=== PATIENT | female | born 1955 | race Caucasian/White ===

== ENCOUNTER 2019-10-25 13:00 | Inpatient (IN) | payer MEDICARE, MEDICAID, OTHER ==
[~2019-10-25 13:00] MED LIST: Iopamidol-370 76% 500 ML 1 ML ONE
--- NOTE | 2019-10-25 13:58 | RAD ---
PORTABLE CHEST 1 VIEW: DATE: 10/25/2019. TIME: 1:13 PM. HISTORY: Dyspnea. FINDINGS/IMPRESSION: Comparison is made with the exam of 07/22/2016. The heart is enlarged. There are bilateral pleural effusions with adjacent infiltrate/atelectatic ch anges. No pneumothoraces are seen. POS: CAMILLEA
[2019-10-25 14:25] LABS: #Lymphocytes 0.9 thou/uL (1.20-3.40); #Monocytes 0.7 thou/uL (0.11-0.59); #Neutrophils 8.2 thou/uL (1.40-6.50); %Basophils 0.2 % (0.0-1.0); %Eosinophils 0.4 % (0.0-10.0); %Lymphocytes 9.2 % (21.0-51.0); %Monocytes 6.7 % (0.0-10.0); %Neutrophils 83.5 % (42.0-75.0); Hemoglobin 13.5 g/dL (12.0-16.0); Mean Corpuscular Hemoglobin 27.8 pg (27.0-31.0); Mean Corpuscular Volume 86.9 fL (78.0-98.0); Mean Platelet Volume 8.1 fL (7.4-10.4); Platelet Count 395 thou/uL (130-400); Red Blood Cell (RBC) Count 4.87 mill/uL (4.20-5.40); White Blood Cell (WBC) Count 9.8 thou/uL (4.8-10.8)
[2019-10-25] MEDS ORDERED: cefTRIAXone\\ROCEPHIN 2 GM VIAL ONE ×2 (14:43→14:49)
[2019-10-25 14:54] LABS: ALT (SGPT) 18 U/L (8-55); AST (SGOT) 21 U/L (5-34); Albumin 3.5 g/dL (3.4-4.8); Alkaline Phosphatase 78 U/L (40-110); Anion Gap 15 mmol/L (10-20); BUN (Urea Nitrogen) 10 mg/dL (9.8-20.1); Bilirubin, Total 0.9 mg/dL (0.2-1.2); Calc. Creatinine Clearance 0 mL/min (70-130); Calcium 8.6 mg/dL (7.8-10.44); Carbon Dioxide 20 mmol/L (23-31); Chloride 104 mmol/L (98-107); Estimated GFR-MDRD 73; Globulin 3.3 g/dL (2.4-3.5); Glucose 118 mg/dL (80-115); Lipase 36 U/L (8-78); Potassium 3.8 mmol/L (3.5-5.1); Protein, Total 6.8 g/dL (6.0-8.3); Sodium 135 mmol/L (136-145)
[2019-10-25 15:13] LABS: CKMB 0.8 ng/mL (0-6.6)
[2019-10-25] MEDS ORDERED: Aspirin 325 MG TAB ONE (16:09)
[2019-10-25] MEDS ORDERED: diphenhydrAMINE 50 MG/ML VIAL ONE (16:09)
[2019-10-25] MEDS ORDERED: Famotidine/PF 20 mg/2ml Vial ONE (16:09)
[2019-10-25] MEDS ORDERED: methylPREDNISolone Sod Succ/PF 125 MG/2 ML VIAL ONE (16:09)
--- NOTE | 2019-10-25 17:12 | PDOC.FPRHP ---
- Allergies/Adverse Reactions Allergies Allergy/AdvReac Type Severity Reaction Status Date / Time Iodinated Contrast Media Allergy Mild Itching Unverified 10/25/19 15:03 ibuprofen [From Advil] Allergy Verified 07/22/16 16:25 - Home Medications Medication Instructions Recorded Confirmed Type Omeprazole Magnesium [Prilosec] 20 mg PO DAILY 07/22/16 07/22/16 History Pramipexole Di-HCl [Mirapex] 0.5 mg PO HS 07/22/16 07/22/16 History predniSONE [predniSONE 5 mg 5 mg PO TID 07/22/16 07/22/16 History Dosepak] Aspirin Chewable [Aspirin Chewable 81 mg PO DAILY #30 tab 07/27/16 Rx Tablet] Azithromycin [Zithromax] 250 mg PO DAILY #5 tab 07/27/16 Rx Metoprolol Tartrate [Lopressor] 12.5 mg PO BID #60 tab 07/27/16 Rx Rivaroxaban [Xarelto] 15 mg PO BID #30 tab 07/27/16 Rx - History PMHx: PSHx: FHx: Social: - Vital signs BP: [] HR: [] RR: [] Tmax: [] Pox: []% on [] Wt: [] FMR H&P: Results - Labs Result Diagrams: 10/25/19 14:09 10/25/19 14:10 Lab results: WBC 9.8 thou/uL (4.8-10.8) 10/25/19 14:09 Hgb 13.5 g/dL (12.0-16.0) 10/25/19 14:09 Hct 42.3 % (36.0-47.0) 10/25/19 14:09 MCV 86.9 fL (78.0-98.0) 10/25/19 14:09 Plt Count 395 thou/uL (130-400) 10/25/19 14:09 Neutrophils % 83.5 % (42.0-75.0) H 10/25/19 14:09 Sodium 135 mmol/L (136-145) L 10/25/19 14:10 Potassium 3.8 mmol/L (3.5-5.1) 10/25/19 14:10 Chloride 104 mmol/L (98-107) 10/25/19 14:10 Carbon Dioxide 20 mmol/L (23-31) L 10/25/19 14:10 BUN 10 mg/dL (9.8-20.1) 10/25/19 14:10 Creatinine 0.80 mg/dL (0.6-1.1) 10/25/19 14:10 Glucose 118 mg/dL (80-115) H 10/25/19 14:10 Lactic Acid 1.4 mmol/L (0.5-2.2) 10/25/19 14:09 Calcium 8.6 mg/dL (7.8-10.44) 10/25/19 14:10 Total Bilirubin 0.9 mg/dL (0.2-1.2) 10/25/19 14:10 AST 21 U/L (5-34) 10/25/19 14:10 ALT 18 U/L (8-55) 10/25/19 14:10 Alkaline Phosphatase 78 U/L (40-110) 10/25/19 14:10 CK-MB (CK-2) 0.8 ng/mL (0-6.6) 10/25/19 14:09 B-Natriuretic Peptide 108.4 pg/mL (0-100) H 10/25/19 14:09 Serum Total Protein 6.8 g/dL (6.0-8.3) 10/25/19 14:10 Albumin 3.5 g/dL (3.4-4.8) 10/25/19 14:10 Lipase 36 U/L (8-78) 10/25/19 14:10 FMR H&P: Upper Level - Plan Date/Time: 10/25/19 1711 I, [], have evaluated this patient and agree with findings/plan as outlined by spring intern resident. Pertinent changes/additions are listed here.
--- NOTE | 2019-10-25 17:53 | CT ---
CT ANGIOGRAM OF THE CHEST: HISTORY: Abnormal chest radiograph. Difficulty breathing. COMPARISON: 07/22/2016 TECHNIQUE: CT angiogram of the chest is performed in the axial plane. Three-dimensional reformatted i mages are submitted for interpretation FINDINGS: Mediastinum: No mass, lymphadenopathy or hematoma. HEART: Heart is enlarged. Significant pericardial fluid. Aorta: No aneurysm or dissection Upper solid abdominal viscera: No abnormal enhancement. 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 Trachea and central bronchi: Patent Pleural spaces: Small left and moderate right pleural effusion. Lung parenchyma: Right lung: Consolidation in the lower lobe, middle lobe and right upper lobe may represent atelectas is, pneumonia or aspiration. Left lung: Linear densities in the lingula and left lower lobe likely represent areas of scar or atel ectasis. Pneumothorax: None Osseous structures: No lytic or blastic lesions Pulmonary arteries: Adequate contrast opacification pulmonary arterial system to the level of segment al arteries. No filling defect to suggest pulmonary embolism IMPRESSION: 1. No evidence of pulmonary artery embolism to the level of the segmental arteries. 2. Cardiomegaly. Markedly pericardial fluid. 3. Bilateral pleural effusions. Right lung consolidation with air bronchograms may represent atelecta sis, aspiration or pneumonia. Transcribed Date/Time: 10/25/2019 6:45 PM
[2019-10-25] MEDS ORDERED: Albuterol Sulfate 2.5 mg/3 ml Neb NEB PRN (19:32)
--- NOTE | 2019-10-25 19:50 | PDOC.FPRHP ---
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 Patient reports she was treated for a sinus infection with amoxicillin 2 weeks ago, and went back to her doctor 4 days ago for worsened SOB and was diagnosed with bronchitis. She was started on albuterol and azithromycin. Her SOB is worsened with exertion, somewhat improved with albuterol. She denies chest pain, palpitations; she reports occasional wheezing. She reports she has had "asthma and bronchitis" in the past, and was started on furosemide 1 month ago for mild CHF (just diagnosed 1 month ago). She states she has not had an echo, but was told that her heart was enlarged. She denies fever/chills, reports productive cough, congestion, rhinorrhea. In the ED, BNP was 108, Trop indeterminate. CBC wnl. LA 1.4. EKG sinus with nonspecific ST changes. CXR showed enlarged heart, pneumonia vs atelectasis vs aspiration. CTA ruled out PE, but showed marked pericardial fluid. She was given famotidine, ASA 325, levaquin, ceftriaxone, and 1L NS. - Allergies/Adverse Reactions Allergies Allergy/AdvReac Type Severity Reaction Status Date / Time Iodinated Contrast Media Allergy Mild Itching Verified 10/25/19 21:01 ibuprofen [From Advil] Allergy Swelling/ Verified 10/25/19 21:01 Hard Time Breathing - Home Medications Medication Instructions Recorded Confirmed Type Omeprazole Magnesium [Prilosec] 20 mg PO DAILY 07/22/16 07/22/16 History Aspirin Chewable [Aspirin Chewable 81 mg PO DAILY #30 tab 07/27/16 Rx Tablet] Azithromycin [Zithromax] 250 mg PO DAILY #5 tab 07/27/16 Rx Albuterol Sulfate [Albuterol 90 mcg PO PRN PRN 10/25/19 10/25/19 History Sulfate Hfa] Amlodipine [Norvasc] 5 mg PO DAILY 10/25/19 10/25/19 History Atorvastatin Calcium [Lipitor] 40 mg PO DAILY 10/25/19 10/25/19 History Folic Acid 1 mg PO DAILY 10/25/19 10/25/19 History Furosemide 20 mg PO DAILY 10/25/19 10/25/19 History Metoprolol Tartrate [Lopressor] 25 mg PO BID 10/25/19 10/25/19 History Montelukast Sodium 10 mg PO DAILY 10/25/19 10/25/19 History Potassium Chloride 20 meq PO DAILY 10/25/19 10/25/19 History Rivaroxaban [Xarelto] 20 mg PO BID 10/25/19 10/25/19 History Suvorexant [Belsomra] 5 mg PO PRN PRN 10/25/19 10/25/19 History - History PMHx: HTN, HLD, DVTs (L leg) on chronic anticoagulation, possible asthma per patient, rheumatoid arthritis (not on DMARD), seasonal allergies, 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 - Review of Systems General: denies: fever/chills Eyes: denies: eye pain, vision changes ENT: reports: nasal congestion, rhinorrhea. denies: other (denies ear pain or hearing 3 changes) Respiratory: reports: cough, congestion, shortness of breath, exercise intolerance Cardiovascular: reports: edema. denies: chest pain, palpitation, paroxysmal nocturnal dyspnea Gastrointestinal: denies: nausea, vomiting, diarrhea, constipation, abdominal pain, GI bleeding Genitourinary: denies: dysuria, other (hematuria) Skin: denies: rashes, lesions Musculoskeletal: reports: arthritis/arthralgias. denies: pain Neurological: denies: numbness, weakness - Vital signs BP: 106/63, 113/73 HR: 83 RR: 18 Tmax: 99.3 F Pox: 96% on RA Wt: 71 kg. - Physical Exam Constitutional: NAD, awake, alert and oriented, other HEENT: normocephalic and atraumatic, conjunctiva clear, no scleral icterus, grossly normal hearing (Eyes: keyhole shaped pupils bilat; pupils are not aligned, decreased vision right eye), MMM, oropharynx clear, other Neck: supple, trachea midline Heart: RRR, normal S1/S2, no murmurs/rubs/gallops, pulses present, other (trace edema BLE, no JVD, heart sounds are not diminished) Lungs: CTAB, good air movement, no rales/rhonchi, no wheezing, other (increased respirations, retractions at clavicles) Abdomen: soft, non-tender, bowel sounds present, no masses/distention Musculoskeletal: normal structure, normal tone, ROM grossly normal Neurological: no focal deficit, other (strength 5/5 upper and lower extremities) Skin: no rash/lesions, good turgor, capillary refill <2 seconds Heme/Lymphatic: no unusual bruising or bleeding, no purpura Psychiatric: normal mood and affect, good judgment and insight, intact recent and remote memory FMR H&P: Results - Labs Result Diagrams: 10/25/19 14:09 10/25/19 14:10 Lab results: WBC 9.8 thou/uL (4.8-10.8) 10/25/19 14:09 Hgb 13.5 g/dL (12.0-16.0) 10/25/19 14:09 Hct 42.3 % (36.0-47.0) 10/25/19 14:09 MCV 86.9 fL (78.0-98.0) 10/25/19 14:09 Plt Count 395 thou/uL (130-400) 10/25/19 14:09 Neutrophils % 83.5 % (42.0-75.0) H 10/25/19 14:09 Sodium 135 mmol/L (136-145) L 10/25/19 14:10 Potassium 3.8 mmol/L (3.5-5.1) 10/25/19 14:10 Chloride 104 mmol/L (98-107) 10/25/19 14:10 Carbon Dioxide 20 mmol/L (23-31) L 10/25/19 14:10 BUN 10 mg/dL (9.8-20.1) 10/25/19 14:10 Creatinine 0.80 mg/dL (0.6-1.1) 10/25/19 14:10 Glucose 118 mg/dL (80-115) H 10/25/19 14:10 Lactic Acid 1.4 mmol/L (0.5-2.2) 10/25/19 14:09 Calcium 8.6 mg/dL (7.8-10.44) 10/25/19 14:10 Total Bilirubin 0.9 mg/dL (0.2-1.2) 10/25/19 14:10 AST 21 U/L (5-34) 10/25/19 14:10 ALT 18 U/L (8-55) 10/25/19 14:10 Alkaline Phosphatase 78 U/L (40-110) 10/25/19 14:10 CK-MB (CK-2) 0.8 ng/mL (0-6.6) 10/25/19 14:09 B-Natriuretic Peptide 108.4 pg/mL (0-100) H 10/25/19 14:09 Serum Total Protein 6.8 g/dL (6.0-8.3) 10/25/19 14:10 Albumin 3.5 g/dL (3.4-4.8) 10/25/19 14:10 Lipase 36 U/L (8-78) 10/25/19 14:10 - EKG Interpretation EKG: Sinus rhythm, nonspecific ST changes - Radiology Interpretation Chest x-ray Status: image reviewed by me, report reviewed by me (enlarged bilateral pleural effusions, adjacent infiltrate/atelectic changes) CT scan - chest Status: image reviewed by me, report reviewed by me (No PE; cardiomegaly, marked pericardial fluid; bilat pleural effusions. Rt lung consolidations wiht air bronchograms may represent atelectasis, aspiration, pneumonia) FMR H&P: A/P - Problem List (1) Pericardial effusion Current Visit: Yes Status: Acute Code(s): I31.3 - PERICARDIAL EFFUSION ( NONINFLAMMATORY) (2) HTN (hypertension) Current Visit: Yes Status: Acute Code(s): I10 - ESSENTIAL (PRIMARY) HYPERTENSION (3) HLD (hyperlipidemia) Current Visit: Yes Status: Acute Code(s): E78.5 - HYPERLIPIDEMIA, UNSPECIFIED (4) Hx of deep venous thrombosis Current Visit: Yes Status: Acute Code(s): Z86.718 - PERSONAL HISTORY OF OTHER VENOUS THROMBOSIS AND EMBOLISM (5) Rheumatoid arthritis Current Visit: No Status: Chronic Code(s): M06.9 - RHEUMATOID ARTHRITIS, UNSPECIFIED Qualifiers: Rheumatoid arthritis location: hand Rheumatoid factor presence: unspecified presence Laterality: bilateral Qualified Code(s): M06.9 - Rheumatoid arthritis, unspecified (6) CHF (congestive heart failure) Current Visit: Yes Status: Acute Code(s): I50.9 - HEART FAILURE, UNSPECIFIED (7) Dyspnea Current Visit: Yes Status: Acute Code(s): R06.00 - DYSPNEA, UNSPECIFIED (8) Elevated troponin Current Visit: Yes Status: Acute Code(s): R79.89 - OTHER SPECIFIED ABNORMAL FINDINGS OF BLOOD CHEMISTRY - Plan Marked Pericardial Effusion -Likely the cause of her SOB. Seen on CTA -EKG normal, trop indeterminate -S/p ASA, no chest pain -No signs of cardiac tamponade, pressures stable systolic 100s-120s, no JVD, heart sounds not diminished on exam -Continue to monitor vitals closely -Echo ordered, plan to consult cardiology tomorrow morning -NPO at midnight Elevated troponin, ACS R/o -Indeterminate, 0.061; will continue to trend -likely 2/2 to pericardial effusion -risk factors: HTN, HLD, rheumatoid arthritis -HEART score 3 Dyspnea -likely 2/2 to pericardial effusion. CTA ruled out PE -tested for covid outpatient, negative results -vitals otherwise stable, lungs clear on exam -will give PRN albuterol, as patient stated it helped over the weekend -PRN O2 BNC, sats have been low 90s HTN -continue home medication, will hold if she develops hypotension HLD -continue home statin Concern for pneumonia -s/p levaquin and rocephin, was on outpatient azithromycin -Afebrile, normal white count, lungs clear on exam -Plan to DC antibiotics Rheumatoid arthritis - Not on disease modifying therapy - Patient has follow up for this at the end of the month outpatient CHF, unknown type -Patient states recently diagnosed 1 month ago, she has not had ECHO yet -She was started on furosemide and potassium 1 month ago -Previously on metoprolol, statin, ASA -BNP mildly elevated on presentation, not fluid overloaded on physical exam. -Echo pending -Strict I/Os Hx of DVTs -CTA ruled out PE -continue xarelto Diet: HH DVT ppx: continue home xarelto, SCDs GI ppx: famotidine PCP: in [place] Code status: Full code Addendum - Attending - Attending Attestation Date/Time: 10/25/19 1364 I personally evaluated the patient and discussed the management with Dr. Houser. I agree with the History, Examination, Assessment and Plan documented above with any addition or exceptions noted below. 2-3 wk history of URI sx and SOB that has been refractory to multiple abx courses. Exam remarkable for muffled heart sounds. Labs show mild elevation in BNP and trop. CXR shows cardiomegly. CT scan shows marked pericardial effusion. EKG unremarkable. Observation for mild HF (EF unknown) exacerbation with pericardial effusion. TTE ordered. Will consider cardiology consult pending results of TTE.
[2019-10-25 20:13] LABS: Troponin I 0.045 ng/mL (< 0.028)
[2019-10-25] MEDS: Famotidine 20 MG TAB PO SCH (21:02)
[2019-10-25] MEDS ORDERED: Rivaroxaban 10 MG TAB PO SCH (23:00)
[2019-10-25] MEDS ORDERED: SUVOREXANT 5 MG PO SCH (23:45)
[2019-10-25] MEDS ORDERED: Melatonin 3 MG TAB PO PRN (23:53)
[2019-10-25 23:54] LABS: Troponin I 0.039 ng/mL (< 0.028)
[2019-10-26 05:52] LABS: Anion Gap 16 mmol/L (10-20); BUN (Urea Nitrogen) 10 mg/dL (9.8-20.1); Calc. Creatinine Clearance 88 mL/min (70-130); Calcium 8.1 mg/dL (7.8-10.44); Carbon Dioxide 17 mmol/L (23-31); Chloride 109 mmol/L (98-107); Estimated GFR-MDRD 80; Glucose 139 mg/dL (80-115); Potassium 3.3 mmol/L (3.5-5.1); Sodium 139 mmol/L (136-145)
--- NOTE | 2019-10-26 05:55 | PDOC.FM ---
- Subjective Subjective: Patient was resting comfortably in her bed at the time of evaluation. She denied any acute overnight events, but continued to complain of shortness of breath. She denied any additional symptoms such as fevers, chills, chest pain, ABD pain or N/V/D. - Objective Vital Signs & Weight: Vital Signs (12 hours) Temp Pulse Resp BP Pulse Ox 10/26/19 03:41 97.6 F 75 17 130/76 98 10/25/19 23:33 97.7 F 74 13 120/71 96 10/25/19 20:07 98.4 F 77 14 100/62 96 10/25/19 19:30 96 10/25/19 17:55 98.4 F 83 22 H 106/63 93 L Weight Weight 71.713 kg Result Diagrams: 10/25/19 14:09 10/26/19 05:18 Phys Exam - Physical Examination Constitutional: NAD HEENT: PERRLA, moist MMs, sclera anicteric, oral pharynx no lesions Neck: no nodes, no JVD, supple, full ROM Respiratory: no wheezing, no rales, no rhonchi, clear to auscultation bilateral Cardiovascular: RRR, no significant murmur, no rub Gastrointestinal: soft, non-tender, no distention, positive bowel sounds Musculoskeletal: no edema, pulses present Neurological: non-focal, moves all 4 limbs Lymphatic: no nodes Psychiatric: normal affect Skin: no rash Dx/Plan (1) CHF (congestive heart failure) Code(s): I50.9 - HEART FAILURE, UNSPECIFIED Status: Acute (2) HLD (hyperlipidemia) Code(s): E78.5 - HYPERLIPIDEMIA, UNSPECIFIED Status: Acute (3) HTN (hypertension) Code(s): I10 - ESSENTIAL (PRIMARY) HYPERTENSION Status: Acute (4) Pericardial effusion Code(s): I31.3 - PERICARDIAL EFFUSION (NONINFLAMMATORY) Status: Acute - Plan Plan: Patient is a 64 y/o female who presented to the ED for evaluation of SOB. 1. Pericardial Effusion -Verified on CTA - likely underlying cause of CC -EKG: No ST-Segment Elevation -Trops: Indeterminate range (0.061 >> 0.039) -Received ASA, Ceftriaxone and Levofloxacin in ED -No chest pain or evidence of cardiac tamponade, w/ SBP stable in the 100s-120s and no JVD or diminished heart sounds -Continue to monitor vitals closely -TSHE: Pending -TTE: Pending -Cardiology: Consulted, recs appreciated -NPO at midnight 2. Elevated troponin, ACS R/o -Risk Factors: HTN, HLD, Rheumatoid Arthritis -HEART Score: 3 -See #1 3. Dyspnea -No evidence of PE on CTA - likely 2/2 to #1 -COVID-19 Testing performed on 10/21 - reported as negative -VSS w/ CTAB -PRN Albuterol, supplemental O2 4. HTN -Continue home medication regimen 5. HLD -Continue home medication regimen 6. Pneumonia, ruled out -s/p Levofloxacin and Ceftriaxone in ED, previously on Azithromycin prior to presenting to ED -VSS w/o elevated WBCs -Plan to DC antibiotics 7. Rheumatoid Arthritis -Not currently on DMARD disease modifying therapy -Patient has follow-up for this at the end of the month outpatient 8. CHF, unknown type -Diagnosed in September 2019 - no reported ECHO - started on Furosemide, Potassium at that time -Previously on Metoprolol, Statin, ASA - will continue -BNP mildly elevated on presentation, no evidence of fluid overload on physical exam -TTE: Pending -Strict I/Os Hx of DVTs -CTA ruled out PE -Will continue home Xarelto regimen PCP: VIOLETTE ([place], [place]) Code status: Full code Diet: NPO at 0001 DVT PPx: Home Xarelto, SCDs GI PPx: Famotidine Dispo: Patient is currently stable and admitted to the Stroke Floor for further evaluation of Pericardial Effusion. Will await results of TTE and consult Cardiology as per above. Expected LOS < 48H. Addendum - Attending - Attending Attestation Date/Time: 10/26/19 4488 I personally evaluated the patient and discussed the management with Dr. Boudreaux I agree with the History, Examination, Assessment and Plan documented above with any addition or exceptions noted below. 64 yo F admitted for evaluation of pericardial effusion and pleural effusion. She does have a history of RA. Will give patient a dose of IV lasix, monitor I/ Os closely. Source of effusion is unknown at this time autoimmune vs cardiac vs viral are in differential. Cardiology consulted, appreciates recs. RA Escobar
[2019-10-26] MEDS: Albuterol Sulfate 2.5 mg/3 ml Neb NEB PRN ×2 (08:16→21:21)
[2019-10-26] MEDS: Amlodipine 5 MG TAB PO SCH (08:52)
[2019-10-26] MEDS: Montelukast Sodium 10 mg Tablet PO SCH (08:52)
[2019-10-26] MEDS: Famotidine 20 MG TAB PO SCH ×2 (08:53→20:46)
[2019-10-26] MEDS: Folic Acid 1 MG TAB PO SCH (08:53)
[2019-10-26] MEDS: Metoprolol Tartrate 25 MG TAB PO SCH ×2 (08:53→20:46)
[2019-10-26] MEDS: Atorvastatin Calcium 40 MG TAB PO SCH (08:53)
[2019-10-26] MEDS: Aspirin Chewable 81 MG TAB PO SCH (08:53)
[2019-10-26] MEDS ORDERED: Rivaroxaban 15 MG TAB PO SCH (09:00)
[2019-10-26] MEDS ORDERED: Potassium Chloride 20 MEQ TAB PO SCH (09:00)
[2019-10-26] MEDS ORDERED: Furosemide 20 MG TAB PO SCH (09:00)
[2019-10-26] MEDS ORDERED: Furosemide 40 MG/4 ML VIAL SLOW IVP SCH (14:15)
[2019-10-26] MEDS: Rivaroxaban 10 MG TAB PO SCH (17:29)
--- NOTE | 2019-10-26 21:56 | CON ---
DATE OF CONSULTATION: 10/26/2019 INDICATION FOR CONSULTATION: This is a 64-year-old female who was admitted due to increasing shortness of breath and dyspnea on exertion. She was found to have a pericardial effusion as well as bilateral pleural effusions. We were asked to see her due to the pericardial effusion. HISTORY OF PRESENT ILLNESS: This is a very pleasant 64-year-old female who has had no previous cardiac history, but has had history of pulmonary emboli in the past. She said that she has been having shortness of breath for the last couple of weeks and became worse over the last couple of days. She did have a recent episode of bronchitis and started to have sinus infection then became bronchitis and she became more short of breath. She was given antibiotics. She denied any chest pain. She has no history of coronary artery disease, and she presented to the hospital since she has continued to have shortness of breath. In the emergency room, her O2 saturation was 94% on room air. Subsequent echocardiogram had showed a [id number] pericardial effusion but no evidence of tamponade. She also has bilateral pleural effusions. The right was greater than the left and on CT of the chest, she also had these effusions were still noted. She does have some cardiomegaly. Ejection fraction appears to be normal on the echocardiogram and there was no evidence of significant diastolic dysfunction. She may have mild diastolic dysfunction and I would quantify this pericardial effusion as mild, appears to be some loculation of fluid around the right atrial side but this may also be some pleural component. In some of the views, it appears that the pericardium does not have any significant effusion, but certainly there is no evidence of tamponade. At this time, she denies any significant symptoms. She is not short of breath. She is answering all my questions appropriately. PAST MEDICAL HISTORY: Significant for right detached retina x3. She has a left eye stigmatism. She had asthma many years ago but has had none recently. She has had right and left knee replacements 4 or 5 years ago. 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 She has been on Xarelto and aspirin since that time. MEDICATIONS: Prior to admission included 1. Lasix 40 mg a day, which she recently was started on. 2. Atorvastatin 10 mg a day. 3. Metoprolol Succinate is 100 mg once a day. 4. She has been on albuterol inhalers. 5. Xarelto was 10 mg a day. 6. Amlodipine 10 mg a day. 7. She also gets folic acid injections. 8. She is on potassium 8 mEq a day. 9. She has also been taking montelukast granules. 10. She is on Vascepa 0.5 g a day. REVIEW OF SYSTEMS: She mainly complains of some decreased vision problems and had the right detached retina. She has history of asthma but none recently. She denies any GI or complaints. No lower extremity edema. Neurologically, no complaints. Mainly, she complained of shortness of breath. FAMILY HISTORY: Unremarkable for any early heart disease. SOCIAL HISTORY: She has two children who are alive and well without heart disease. She says she smoked on and off a little bit for about over nine years, but stopped many years ago. She has no significant alcohol use but has occasional alcohol use. She is on disability due to her eye problems. ALLERGIES: SHE IS ALLERGIC TO ADVIL AND IODINE. PHYSICAL EXAMINATION: GENERAL: Reveals a well-developed, well-nourished female, who is in no acute distress at this time. She is alert. She is oriented. VITAL SIGNS: Her blood pressure is 119/74, heart rate is 72 and regular, respiratory rate is 18. She is afebrile. O2 saturations are 98% on room air. HEENT: Shows the head to be normocephalic and atraumatic. Carotid pulses are present, I did not hear any bruits. There is no JVD noted. CHEST: Has some decreased breath sounds at the bases, otherwise unremarkable. CARDIOVASCULAR: Reveals a regular rate and rhythm. She has normal S1 and S2. I did not hear any significant S3 or S4. There are no significant murmurs, heaves, thrills, bruits, or rubs noted. ABDOMEN: Soft and nontender. Positive bowel sounds are present. No organomegaly or masses are noted. VASCULAR: Femoral pulses are present. Pedal pulses are present. EXTREMITIES: Show no clubbing, cyanosis, or edema. NEUROLOGICAL: She appears to be fully intact. There is no evidence of any focal motor deficit. She has normal strength and tone. SKIN: Warm and dry. LABORATORY DATA: Show a WBC of 9.8, hemoglobin 13.5, platelet count was 395,000. Sodium is 139 with potassium 3.3, BUN was 10 with a creatinine of 0.74, blood sugar 139. Her troponin I was 0.061, then decreased down to 0.045, is now down to 0.039, the last one. Her BNP also was 108. DIAGNOSTIC STUDIES: Chest x-ray shows bilateral pleural effusions, right being more than the left. She also has some cardiomegaly and she by echocardiogram has small pericardial effusion without tamponade. CT angiogram of the chest shows evidence of bilateral pleural effusions and also a pericardial effusion. There is also something on the CT of the chest that appears to be some calcification which also was noted on the echocardiogram. I am uncertain as to what this was, but this may be some type of calcifications. There was no significant mention of this on the CT report. IMPRESSION: 1. Small pericardial effusion without evidence of tamponade. I will continue to monitor this. She has been placed on diuretics. We will continue the diuretics. We will change to IV diuretics since there is no evidence of tamponade, but certainly would watch the blood pressure, it should begin to decrease. We would certainly not want to over diurese this patient with any type of pericardial effusion, but this may resolve after being given diuretics and may be result of recent upper respiratory tract infection, also bronchitis. 2. History of bilateral pleural effusions, which may also be due to her recent lung infections. We will see whether or not this will resolve with diuretics. 3. History of pulmonary embolisms in the past with deep venous thrombosis. She has been on anticoagulation. I would continue these medications for now to ensure that she does not have any significant other deep venous thrombosis or pulmonary embolus while in the hospital or to switch over to Lovenox if necessary or if so desired rather than the Xarelto, but at this time she is I believe taking Xarelto 20 mg once a day. 4. History of recent bronchitis. She may need further antibiotics. We will leave this up to the care of the primary care physicians. I do not think she completely finished her prescription that she was given previously by the primary care provider. 5. Hypertension. Blood pressure is under good control at this time. We will continue to monitor it. If she becomes more hypotensive, we would decrease the dose of her amlodipine. She is already taking 5 mg, we could decrease this further down to 2.5 if necessary or stop it completely if the blood pressure remains less than 120. We would be more than happy to continue to follow the patient with you. Further care of the patient will be resumed by Dr. Tolbert when he visits with the patient tomorrow. If the effusions do not resolve, then further evaluation may be indicated but the pericardial effusion is too small to undergo aspiration and also the bilateral pleural effusions are rather small and would be unlikely that they would undergo a thoracentesis. Hopefully, this will resolve with diuretics and possibly even antibiotics. Also please note, her EKG does not show any acute changes and cardiac enzymes are felt to be negative for myocardial infarction. They are somewhat indeterminate, but with her history of shortness of breath and the recent infection, this may be slightly abnormal which could indicate possibly a small [id number] elevation myocardial infarction, but that has continued to trend downward at this time and also does not appear that she has any indication of congestive heart failure since her BNP is 108, and her ejection fraction on the echocardiogram was within normal limits, and there was no significant indication that the patient had diastolic dysfunction. There was mild diastolic dysfunction noted on the echocardiogram, but would not likely be significant enough to cause a pericardial effusion or bilateral pleural effusions. Job ID: [id number]
[2019-10-27 04:38] LABS: Anion Gap 14 mmol/L (10-20); BUN (Urea Nitrogen) 15 mg/dL (9.8-20.1); Calc. Creatinine Clearance 91 mL/min (70-130); Calcium 7.9 mg/dL (7.8-10.44); Carbon Dioxide 21 mmol/L (23-31); Chloride 108 mmol/L (98-107); Estimated GFR-MDRD 82; Glucose 100 mg/dL (80-115); Potassium 3.4 mmol/L (3.5-5.1); Sodium 140 mmol/L (136-145)
--- NOTE | 2019-10-27 06:16 | PDOC.FM ---
- Subjective Subjective: Patient was resting comfortably in her bed at the time of evaluation and denied any acute overnight events. She felt that her breathing has greatly improved since her admission. - Objective Vital Signs & Weight: Vital Signs (12 hours) Temp Pulse Resp BP Pulse Ox 10/27/19 03:28 99.5 F 86 20 125/59 L 92 L 10/26/19 21:21 83 20 97 10/26/19 19:34 97.4 F L 83 14 124/64 96 Weight Weight 70.942 kg I&O: 10/25/19 10/26/19 10/27/19 06:59 06:59 06:59 Intake Total 240 1222 Output Total 500 Balance 240 722 Result Diagrams: 10/25/19 14:09 10/27/19 03:53 Phys Exam - Physical Examination Constitutional: NAD HEENT: moist MMs, sclera anicteric, oral pharynx no lesions Neck: supple, full ROM Respiratory: no wheezing, no rales, no rhonchi, clear to auscultation bilateral Cardiovascular: RRR, no significant murmur, no rub Gastrointestinal: soft, non-tender, no distention Musculoskeletal: no edema, pulses present Neurological: non-focal, moves all 4 limbs Psychiatric: normal affect Dx/Plan (1) CHF (congestive heart failure) Code(s): I50.9 - HEART FAILURE, UNSPECIFIED Status: Acute (2) HLD (hyperlipidemia) Code(s): E78.5 - HYPERLIPIDEMIA, UNSPECIFIED Status: Acute (3) HTN (hypertension) Code(s): I10 - ESSENTIAL (PRIMARY) HYPERTENSION Status: Acute (4) Pericardial effusion Code(s): I31.3 - PERICARDIAL EFFUSION (NONINFLAMMATORY) Status: Acute - Plan Plan: Patient is a 64 y/o female who presented to the ED for evaluation of SOB. 1. Pericardial Effusion -Verified on CTA - likely contributing cause of CC -Echo: Mild Pericardial Effusion, EF(50-55%), Diastolic Dysfunction 1/3 -Cardiology: Consulted, no evidence of Cardiac Tamponade - continue to diures while monitoring BP -EKG: No ST-Segment Elevation -Trops: Indeterminate range (0.061 >> 0.039) -Received ASA, Ceftriaxone and Levofloxacin in ED -No chest pain or evidence of cardiac tamponade, w/ SBP stable in the 100s-120s and no JVD or diminished heart sounds -Continue to monitor vitals closely -TSH: 1.03 -Repeat CXR: Pending 2. Elevated troponin, ACS R/o -Likely 2/2 demand ischemia -Risk Factors: HTN, HLD, Rheumatoid Arthritis -HEART Score: 3 -See #1 3. Dyspnea -No evidence of PE on CTA - likely 2/2 to #1 -COVID-19 Testing performed on 10/21 - reported as negative -VSS w/ CTAB -PRN Albuterol, supplemental O2 4. HTN -Continue home medication regimen 5. HLD -Continue home medication regimen 6. Pneumonia, ruled out -s/p Levofloxacin and Ceftriaxone in ED, previously on Azithromycin prior to presenting to ED -VSS w/o elevated WBCs -Plan to DC antibiotics 7. Rheumatoid Arthritis -Not currently on DMARD disease modifying therapy -Patient has follow-up for this at the end of the month outpatient 8. CHF, unknown type -Diagnosed in September 2019 - no reported ECHO - started on Furosemide, Potassium at that time -Previously on Metoprolol, Statin, ASA - will continue -BNP mildly elevated on presentation, no evidence of fluid overload on physical exam -TTE: See Above -Strict I/Os Hx of DVTs -CTA ruled out PE -Will continue home Xarelto regimen PCP: VIOLETTE ([place], [place]) Code status: Full code Diet: HH w/ Fluid Restriction (1.5 L/day) DVT PPx: Home Xarelto, SCDs GI PPx: Famotidine Dispo: Patient is currently stable and admitted to the Stroke Floor for further evaluation of Pericardial Effusion. Cardiology consulted, recs appreciate. Will proceed with diuresis and monitor BPs accordingly. Expected LOS < 24H. Addendum - Attending - Attending Attestation Date/Time: 10/27/19 1035 I personally evaluated the patient and discussed the management with Dr. Boudreaux I agree with the History, Examination, Assessment and Plan documented above with any addition or exceptions noted below. 64 yo F admitted for evaluation of pericardial effusion and pleural effusion. Appreciate Cardiology recs. Will continue diuresis as tolerated, BP meds held this AM. Patient walked halls for 10 minutes today, not interested in rehab. Source for pericardial effusion still undetermined at this time. RA Escobar
[2019-10-27] MEDS: Folic Acid 1 MG TAB PO SCH (08:05)
[2019-10-27] MEDS: Atorvastatin Calcium 40 MG TAB PO SCH (08:05)
[2019-10-27] MEDS: Metoprolol Tartrate 25 MG TAB PO SCH (08:05)
[2019-10-27] MEDS: Potassium Chloride 20 MEQ TAB PO SCH ×2 (08:05→16:59)
[2019-10-27] MEDS: Aspirin Chewable 81 MG TAB PO SCH (08:05)
[2019-10-27] MEDS: Montelukast Sodium 10 mg Tablet PO SCH (08:06)
[2019-10-27] MEDS: Famotidine 20 MG TAB PO SCH ×2 (08:06→21:29)
[2019-10-27] MEDS: Albuterol Sulfate 2.5 mg/3 ml Neb NEB PRN (08:15)
--- NOTE | 2019-10-27 08:57 | RAD ---
PA AND LATERAL VIEWS CHEST: Date: 10/27/2019 HISTORY: Pericardial and pleural effusions. FINDINGS: Comparison with 10/25/2019. The heart is enlarged. There are bilateral pleural effusions, right larger than left, with adjacent a telectatic changes. No rhett pulmonary edema is seen. No pneumothoraces are identified. IMPRESSION: Bilateral pleural effusions. POS: CAMILLEA
[2019-10-27] MEDS ORDERED: Furosemide 20 MG/2 ML VIAL SLOW IVP SCH (09:00)
[2019-10-27] MEDS: Acetaminophen 325 MG TAB PO PRN ×2 (11:10→21:29)
--- NOTE | 2019-10-27 15:28 | EKG ---
Test Reason : Blood Pressure : / mmHG Vent. Rate : 086 BPM Atrial Rate : 086 BPM P-R Int : 098 ms QRS Dur : 094 ms QT Int : 350 ms P-R-T Axes : 044 012 035 degrees QTc Int : 418 ms Sinus rhythm with short VA with occasional Premature ventricular complexes Biatrial enlargement Borderline ECG Confirmed by LEE WETZEL, ROYCE Walker ([id number]), digital editor DENISE NOLASCO ([id number]) on 10/27/2019 3:28:14 PM Referred By: Confirmed By:ROYCE HOWARD MD
[2019-10-27] MEDS: Rivaroxaban 10 MG TAB PO SCH (16:59)
[2019-10-27] MEDS: Amoxicillin/Potassium Clav 875 MG TAB PO SCH (21:29)
[2019-10-27] MEDS ORDERED: Adenosine 6 MG/2 ML VIAL ONE (22:47)
[2019-10-27] MEDS ORDERED: Adenosine 6 MG/2 ML VIAL IVP SCH (23:15)
[2019-10-27] MEDS ORDERED: Diltiazem HCl 125 MG, Admixture Fee 1 EACH in Sodium Chloride 0.9% 100 ML IVPB SCH (23:30)
--- NOTE | 2019-10-27 23:32 | RAD ---
Exam: Chest one view HISTORY:Atrial fibrillation. Pericardial effusion. Comparison: 10/25/2019, 10/27/2019 at 8:28 AM FINDINGS: Cardiac silhouette:Persistently enlarged cardiac silhouette. Aorta: Unremarkable Pulmonary vessels: Normal Costophrenic angles: Bilateral pleural effusions LUNGS: Stable parenchymal changes in the lung bases. Pneumothorax: None Osseous abnormalities: None IMPRESSION: No significant interval change.
[2019-10-28 00:02] LABS: #Basophils 0.1 thou/uL (0.0-0.2); #Lymphocytes 1.2 thou/uL (1.20-3.40); #Monocytes 0.9 thou/uL (0.11-0.59); #Neutrophils 16.4 thou/uL (1.40-6.50); %Basophils 0.5 % (0.0-1.0); %Eosinophils 0.1 % (0.0-10.0); %Lymphocytes 6.4 % (21.0-51.0); %Monocytes 4.8 % (0.0-10.0); %Neutrophils 88.1 % (42.0-75.0); Hemoglobin 13.1 g/dL (12.0-16.0); Mean Corpuscular HGB CONC 32.6 g/dL (32.0-36.0); Mean Corpuscular Hemoglobin 28.2 pg (27.0-31.0); Mean Corpuscular Volume 86.6 fL (78.0-98.0); Platelet Count 451 thou/uL (130-400); RBC Distribution Width 15.1 % (11.5-14.5); Red Blood Cell (RBC) Count 4.63 mill/uL (4.20-5.40); White Blood Cell (WBC) Count 18.6 thou/uL (4.8-10.8)
[2019-10-28 00:19] LABS: ALT (SGPT) 14 U/L (8-55); AST (SGOT) 16 U/L (5-34); Alkaline Phosphatase 74 U/L (40-110); Anion Gap 16 mmol/L (10-20); BUN (Urea Nitrogen) 11 mg/dL (9.8-20.1); Bilirubin, Total 0.9 mg/dL (0.2-1.2); Calc. Creatinine Clearance 85 mL/min (70-130); Calcium 7.8 mg/dL (7.8-10.44); Carbon Dioxide 17 mmol/L (23-31); Chloride 107 mmol/L (98-107); Estimated GFR-MDRD 76; Globulin 2.7 g/dL (2.4-3.5); Glucose 149 mg/dL (80-115); Potassium 3.6 mmol/L (3.5-5.1); Protein, Total 5.7 g/dL (6.0-8.3); Sodium 136 mmol/L (136-145)
[2019-10-28 00:46] LABS: CKMB 0.6 ng/mL (0-6.6)
[2019-10-28] MEDS ORDERED: Digoxin 0.5 MG/2 ML AMP SLOW IVP SCH ×2 (01:00→07:00)
--- NOTE | 2019-10-28 01:26 | PDOC.EVN ---
Event Note - Event Note Event Note: 22:40 on 10/26 Was approached by ED charge nurse when down for admission with patient regarding unstable patient in room 283 in SVT with HR's in 200's. States they tried to contact residents, but we were not aware of developing situation and a code was never called. As soon as we were notified, we did immediately go to room 283 to evaluate patient. Patient did appear stable, but with HR in low 200' s. BP in 120's systolic. She was A&O x4, but did appear clammy. She did not note any fluttering in her chest or chest pain during this episode. Initial concern for SVT. Valsalva and other vagal maneuvers unsuccessful. Patient given 6 mg adenosine, but HR continued to stay in the 200's. Additional 12 mg of adenosine given with minimal to no response. EKG did appear to be irregular and thus presumed to be more Afib RVR vs possible Aflutter. Patient given 20 mg loading dose of dilt and started on dilt drip. Patient's HR did respond initially; however, approximately an hour after initiation of drip, received call that HR in 140's with BP in low 100's systolic. EKG repeated at this time and appears to be Afib/aflutter with RVR. Will start loading dose of digoxin and continue to monitor. Goal HR <110 bpm. Of note, patient did get 1L NS during initial evaluation. Hilda Cruz DO PGY-3 ATTENDING ADDENDUM I was present for the attempted cardioversion with adenosine and the initiation of diltiazem. I agree with the above documentation. Approximately 40 minutes of critical care time were spent with the patient.
[2019-10-28] MEDS ORDERED: Diltiazem HCl 125 MG, Admixture Fee 1 EACH in Sodium Chloride 0.9% 100 ML IVPB SCH (02:27)
[2019-10-28 05:15] LABS: Anion Gap 13 mmol/L (10-20); BUN (Urea Nitrogen) 10 mg/dL (9.8-20.1); Calc. Creatinine Clearance 99 mL/min (70-130); Calcium 7.9 mg/dL (7.8-10.44); Carbon Dioxide 21 mmol/L (23-31); Chloride 107 mmol/L (98-107); Estimated GFR-MDRD Greater than 90; Glucose 124 mg/dL (80-115); Potassium 3.6 mmol/L (3.5-5.1); Sodium 137 mmol/L (136-145)
[2019-10-28 05:21] LABS: Troponin I 0.051 ng/mL (< 0.028)
[2019-10-28] MEDS ORDERED: Dextrose 50% Abboject 50 ML SYRINGE ONE (05:24)
--- NOTE | 2019-10-28 06:11 | PDOC.FM ---
- Subjective Subjective: Patient was resting in bed at the time of evaluation. She appeared mildly uncomfortable, but denied any acute overnight events or feelings of chest pain, palpitations, SOB, N/V/D or visual disturbances. Per the Resident Night Team, the patient experienced an episode of tachycardia that was resistant to Adenosine 6 mg, followed by an additional dose of 12 mg. EKG appeared most consistent with A-Fib vs. A-Flutter, and a Diltiazem gtt was started at 9 followed by Digoxin Q6H. - Objective Vital Signs & Weight: Vital Signs (12 hours) Temp Pulse Resp BP Pulse Ox 10/28/19 03:49 99.4 F 142 H 22 H 103/54 L 99 10/28/19 01:25 92 L 10/28/19 01:10 107 H 10/27/19 19:37 99.7 F H 107 H 14 123/71 98 Weight Weight 72.802 kg I&O: 10/26/19 10/27/19 10/28/19 06:59 06:59 06:59 Intake Total 240 1222 480 Output Total 500 900 Balance 240 722 -420 Result Diagrams: 10/28/19 09:53 10/28/19 04:44 Phys Exam - Physical Examination Constitutional: NAD HEENT: moist MMs, sclera anicteric, oral pharynx no lesions Neck: no nodes, no JVD, supple, full ROM Respiratory: no wheezing, no rales, no rhonchi, clear to auscultation bilateral Cardiovascular: no significant murmur, no rub Tachycardia Gastrointestinal: soft, non-tender, no distention, positive bowel sounds Musculoskeletal: no edema, pulses present Neurological: non-focal, moves all 4 limbs Lymphatic: no nodes Deviation from normal: Affect appeared guarded Skin: no rash Dx/Plan (1) CHF (congestive heart failure) Code(s): I50.9 - HEART FAILURE, UNSPECIFIED Status: Acute (2) HLD (hyperlipidemia) Code(s): E78.5 - HYPERLIPIDEMIA, UNSPECIFIED Status: Acute (3) HTN (hypertension) Code(s): I10 - ESSENTIAL (PRIMARY) HYPERTENSION Status: Acute (4) Pericardial effusion Code(s): I31.3 - PERICARDIAL EFFUSION (NONINFLAMMATORY) Status: Acute - Plan Plan: Patient is a 64 y/o female who presented to the ED for evaluation of SOB. 1. Pericardial Effusion -Verified on CTA - likely contributing cause of CC -Echo: Mild Pericardial Effusion, EF(50-55%), Diastolic Dysfunction 1/3 -Cardiology: Consulted, no evidence of Cardiac Tamponade - continue to gently diures while monitoring BP -Initial EKG: No ST-Segment Elevation -Trops: Indeterminate range (0.061 >> 0.039) -Received ASA, Ceftriaxone and Levofloxacin in ED -No chest pain or evidence of cardiac tamponade, w/ SBP stable in the 100s-120s and no JVD or diminished heart sounds -TSH: 1.03 -Repeat CXR: Improving Pericardial/Pleural Effusions -Per Resident Night Team, patient had episode of elevated HR in the 200s - A- Fib vs/ A-Flutter, s/p Adenosine 6mg, 12 mg, no change -Follow-Up EKG: A-Fib vs. A-Flutter -Follow-up Trops: Indeterminate Range (0.042, 0.051) -Started on Diltiazem gtt, and Digoxin Q6H, HR controlled -Will reengage w/ Cardiology for additional recs 2. Elevated troponin, ACS R/o -Likely 2/2 demand ischemia -Risk Factors: HTN, HLD, Rheumatoid Arthritis -HEART Score: 3 -See #1 3. Dyspnea, resolved -No evidence of PE on CTA - likely 2/2 to #1 -COVID-19 Testing performed on 10/21 - reported as negative -VSS w/ CTAB -PRN Albuterol, supplemental O2 4. HTN -Currently on Diltiazem gtt 5. HLD -Continue home medication regimen 6. Pneumonia, ruled out -s/p Levofloxacin and Ceftriaxone in ED, previously on Azithromycin prior to presenting to ED -VSS w/o elevated WBCs on initial evaluation -WBCs (10/27): 18.6 -Antibiotics DC'd - may be 2/2 stress reaction 7. Rheumatoid Arthritis -Not currently on DMARD disease modifying therapy -Patient has follow-up for this at the end of the month outpatient 8. CHF, unknown type -Diagnosed in September 2019 - no reported ECHO - started on Furosemide, Potassium at that time -Previously on Metoprolol, Statin, ASA - will continue -BNP mildly elevated on presentation, no evidence of fluid overload on physical exam -TTE: See Above -Strict I/Os Hx of DVTs -CTA ruled out PE -Will continue home Xarelto regimen PCP: VIOLETTE ([place], [place]) Code status: Full code Diet: HH w/ Fluid Restriction (1.5 L/day) DVT PPx: Home Xarelto, SCDs GI PPx: Famotidine Dispo: Patient is currently stable and admitted to the Stroke Floor for further evaluation of Pericardial Effusion, with recent episode of A-Fib vs. A-Flutter concerning. Will continue Diltiazem and Digoxin and re-engage with Cardiology, recs appreciate. Expected LOS < 48H. Addendum - Attending - Attending Attestation Date/Time: 10/28/19 1044 I personally evaluated the patient and discussed the management with Dr. Boudreaux I agree with the History, Examination, Assessment and Plan documented above with any addition or exceptions noted below. 64 yo F admitted for evaluation of pericardial effusion and pleural effusion. Overnight had event of SVT. S/p adenosine x2. Now on diltiazem and amiodarone gtt. Appreciate Cardiology recs. May need cardioversion if HR remains uncontrolled. Continue to monitor effusions.
[2019-10-28] MEDS ORDERED: Amiodarone 150 MG in Dextrose 5% in Water 100 ML IVPB SCH (09:15)
[2019-10-28] MEDS: Amoxicillin/Potassium Clav 875 MG TAB PO SCH ×2 (09:36→20:25)
[2019-10-28] MEDS: Aspirin Chewable 81 MG TAB PO SCH (09:37)
[2019-10-28] MEDS: Amlodipine 5 MG TAB PO SCH (09:37)
[2019-10-28] MEDS: Famotidine 20 MG TAB PO SCH ×2 (09:37→20:25)
[2019-10-28] MEDS: Folic Acid 1 MG TAB PO SCH (09:37)
[2019-10-28] MEDS: Montelukast Sodium 10 mg Tablet PO SCH (09:37)
[2019-10-28] MEDS: Potassium Chloride 20 MEQ TAB PO SCH ×2 (09:37→17:17)
[2019-10-28] MEDS: Metoprolol Tartrate 25 MG TAB PO SCH (09:37)
[2019-10-28] MEDS: Atorvastatin Calcium 40 MG TAB PO SCH (09:38)
[2019-10-28 10:02] LABS: Mean Corpuscular HGB CONC 32.4 g/dL (32.0-36.0); Mean Corpuscular Hemoglobin 28.3 pg (27.0-31.0); Mean Corpuscular Volume 87.4 fL (78.0-98.0); Mean Platelet Volume 7.8 fL (7.4-10.4); Platelet Count 448 thou/uL (130-400); RBC Distribution Width 15.2 % (11.5-14.5); White Blood Cell (WBC) Count 16.3 thou/uL (4.8-10.8)
[2019-10-28] MEDS ORDERED: Furosemide 20 MG/2 ML VIAL SLOW IVP SCH ×2 (13:15→23:15)
[2019-10-28] MEDS: Diltiazem HCl 125 MG, Admixture Fee 1 EACH in Sodium Chloride 0.9% 100 ML IVPB SCH (14:36)
[2019-10-28 16:56] LABS: Actual Bicarbonate (HCO3a) 22.2 mEq/L (22-28); Base Excess (BEa) 1.7 mEq/L (-2.0 to +3.0); Calcium, Ionized 1.11 mmol/L (1.12-1.30); Carboxyhemoglobin (COHb) 1.3 gm% (0.0-3.0); Hemoglobin (Hb) 13.9 g/dL (12.0-16.0); Potassium - ABG Lab 3.65 mmol/L (3.70-5.30); pH, Arterial 7.57 (7.35-7.45)
[2019-10-28 16:57] LABS: CO2 Tension 24.6 mmHg (35.0-45.0); O2 Tension (PaO2), arterial 52.4 mmHg (> 80.0); Puncture Site RRA
--- NOTE | 2019-10-28 17:02 | PDOC.BPN ---
<Elie Boudreaux - Last Filed: 10/28/19 17:00> - Brief Progress Note Mrs. Berg had been complaining of worsening shortness of breath requiring 2L of supplemental O2 via nasal cannula following her nighttime episode of tachycardia and subsequent placement on a Diltiazem and Amiodarone gtt, and was evaluated by the Resident Medicine Television Repair Teacher at 0700 and subsequently by the Resident Medicine Team for further evaluation. She was administered Furosemide 20 mg IV x1, and although her HR remained rate-controlled throughout the day, her BP remained low at approximately 100/60 mmHg, and as such an additional dose of Furosemide was not administered. Despite this intervention, Mrs. Berg remained tachypneic and continued to complain of SOB. Her supplemental O2 was increased incrementally from 2L to 4L over a 4 hour period, but the patient remained tachypneic and continued to complain of SOB, utilizing her accessory muscles of respiration extensively, with O2Sats recorded at ~91% with a RR of 22. Due to the patient's worsening shortness of breath despite increasing medical intervention and O2 supplementation, the decision was made to transfer the patient to the [facility] for close observation of her respiratory status. Pulmonology was consulted and Cardiology was notified appropriately. <Haley Huggins - Last Filed: 10/29/19 10:41> Addendum - Attending - Attending Attestation Date/Time: 10/29/19 1038 I personally evaluated the patient and discussed the management with Dr. Boudreaux on 10/28/2019 I agree with the History, Examination, Assessment and Plan documented above with any addition or exceptions noted below - Agree with transfer ti [facility]. Trial of HFNC and possible transition to BiPap if not improving. Pulmonary and cardiology aware.
[2019-10-28] MEDS: Rivaroxaban 10 MG TAB PO SCH (17:18)
[2019-10-28] MEDS: Amiodarone 450 MG, Admixture Fee 1 EACH in Dextrose 5% in Water 250 ML IVPB SCH (20:25)
[2019-10-28 20:57] LABS: Bacteria/HPF None Seen HPF (None Seen); Bilirubin Negative (Negative); Blood, Urine 2+ (Negative); Clarity Clear (Clear); Glucose, Urine (Dipstick) Normal (Negative); Leukocyte 75 Leu/uL (Negative); Nitrite Negative (Negative); Protein, Urine (Dipstick) 100 mg/dL (Neg-Trace); RBC/HPF Greater than 50 HPF (0-3); Squamous Epithelial 0-3 HPF (0-3); WBC/HPF 21-50 HPF (0-3)
[2019-10-28 20:58] LABS: Urine Culture Reflex Yes Yes
--- NOTE | 2019-10-28 21:59 | EKG ---
Test Reason : STAT Blood Pressure : / mmHG Vent. Rate : 194 BPM Atrial Rate : 214 BPM P-R Int : 000 ms QRS Dur : 080 ms QT Int : 252 ms P-R-T Axes : 000 -28 056 degrees QTc Int : 452 ms Atrial fibrillation with rapid ventricular response with premature ventricular or aberrantly conducte d complexes Nonspecific ST and T wave abnormality Abnormal ECG When compared with ECG of 25-OCT-2019 13:34, Atrial fibrillation has replaced Sinus rhythm Vent. rate has increased BY 108 BPM QRS axis Shifted left ST now depressed in Anterior leads Nonspecific T wave abnormality now evident in Lateral leads Confirmed by Cortez JOY ([id number]) on 10/28/2019 9:59:28 PM Referred By: GABI *r Confirmed By:Cortez JOY
--- NOTE | 2019-10-28 21:59 | EKG ---
Test Reason : TACHY Blood Pressure : / mmHG Vent. Rate : 181 BPM Atrial Rate : 277 BPM P-R Int : 000 ms QRS Dur : 080 ms QT Int : 248 ms P-R-T Axes : 000 -25 000 degrees QTc Int : 430 ms Atrial fibrillation with rapid ventricular response with premature ventricular or aberrantly conducte d complexes Nonspecific ST and T wave abnormality Abnormal ECG When compared with ECG of 27-OCT-2019 22:45, (Unconfirmed) Nonspecific T wave abnormality, worse in Anterior leads Confirmed by Cortez JOY ([id number]) on 10/28/2019 9:59:37 PM Referred By: GABI chawla Confirmed By:Cortez JOY
--- NOTE | 2019-10-28 22:04 | EKG ---
Test Reason : Blood Pressure : / mmHG Vent. Rate : 085 BPM Atrial Rate : 085 BPM P-R Int : 112 ms QRS Dur : 088 ms QT Int : 316 ms P-R-T Axes : 045 -19 012 degrees QTc Int : 376 ms Normal sinus rhythm RSR' or QR pattern in V1 suggests right ventricular conduction delay Possible Inferior infarct , age undetermined Abnormal ECG When compared with ECG of 28-OCT-2019 00:36, (Unconfirmed) Sinus rhythm has replaced Atrial fibrillation Vent. rate has decreased BY [address] no longer depressed in Anterior leads T wave inversion less evident in Lateral leads Confirmed by Cortez JOY ([id number]) on 10/28/2019 10:03:55 PM Referred By: RASHEED Confirmed By:Cortez JOY
--- NOTE | 2019-10-28 23:28 | PDOC.EVN ---
Event Note - Event Note Event Note: Went to evaluate patient at around 22:00. Patient was recently transferred from telemetry to [facility] due to respiratory concerns. Patient with RR persistently in 40's with increased work of breathing and retractions. 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 Patient arousable, but did appear tired. Auscultation with diminshed lung sounds at bases. Mildly tachycardic, no murmur, rub, gallop, or muffled heart sounds appreciated. No appreciable JVD. BP stable in low 100's. HR mildly tachcyardic. Patient did appear short of breath. Decision was made to transfer to Bipap in an attempt to help with work of breathing and respiratory status. Patient tolerating bipap well. Will continue to monitor. Will also give 20 mg lasix as patient has received IV fluids and has been on multiple drips which may be contributing to respiratory status given presentation with bilateral pleural effusions and pericardial effusion. Echo pending for AM to re-evaluate pericardial effusion. If patient acutely decompensates, then will consider CTA of chest to further evaluate. Patient did have CTA on admission which was negative and is on xeralto, so suspicious for PE less likely at this time. Hilda Cruz, DO PGY-3
--- NOTE | 2019-10-29 00:17 | PDOC.BPN ---
- Brief Progress Note Patient fevered to 101.7, UA shows urinary tract infection. She remains tachypneic to high 30s on Bipap, P >90, Started vanc and zosyn, U cx and new blood cultures pending.
[2019-10-29] MEDS: Acetaminophen 325 MG TAB PO PRN (00:19)
--- NOTE | 2019-10-29 00:29 | CON ---
DATE OF CONSULTATION: HISTORY OF PRESENT ILLNESS: Kari Berg is a 64-year-old female, who has been in the hospital here since the , today at 4 o'clock had been consulted regarding a pulmonary status. She is to be transferred to the MICU as per the family practice physician assistant in case she needed BiPAP in the night time. She has seen Dr. Slater in office in the past. She presented to the hospital with symptoms of shortness of breath without any associated fever, though she did say she was having sputum, which was relatively clear. She received a course of antibiotics, appears Zithromax and amoxicillin, without much improvement. She has a previous history of DVT, on chronic anticoagulation. She says she has not smoked. X-ray on admission shows bilateral pleural effusion. Echocardiogram shows normal EF. CT showed evidence of pericardial effusion. Apparently, over the last 12 hours, her condition got worse. She was seen by Cardiology. She is on amiodarone drip. Blood pressure has decreased. There is concern, she may have additional issues with respiratory distress, may require noninvasive ventilation and transferred to monitored bed for close observation. PAST MEDICAL HISTORY: DVT, nonsmoker, rheumatoid arthritis, diastolic dysfunction, and hypertension. PREVIOUS SURGERIES: Knee surgery and eye surgery. CHRONIC MEDICATIONS: From home, 1. Belsomra. 2. Xarelto 20. 3. Potassium. 4. Prilosec. 5. Singulair 10. 6. Lopressor 25 twice a day. 7. Lasix 20. 8. Albuterol inhaler. She is now on, 1. Augmentin. 2. Amlodipine. 3. Amiodarone. 4. Cardizem. 5. Xarelto 20. ALLERGIES: IODINE. REVIEW OF SYSTEMS: Otherwise, negative. PHYSICAL EXAMINATION: VITAL SIGNS: Sats are 92% on 4 L. Temperature 98, pulse 91, blood pressure 100/64, on two drips amiodarone and diltiazem. CHEST: Decreased breath sounds bilaterally, right greater than left. CARDIAC: Normal S1, S2. No gallops. ABDOMEN: No masses. EXTREMITIES: Revealed no edema. NEUROLOGIC: She is awake, alert, and responsive. LABORATORY DATA: Lytes are normal. Bicarb is 21. White count 6000, hemoglobin and hematocrit 14 and 46, platelet count is 448. X-ray from the last night once again shows significant pleural effusion, right greater than left. No masses were seen. ASSESSMENT: 1. Respiratory failure, bilateral pleural effusion, pericardial effusion, probably diastolic dysfunction. 2. Atrial fibrillation. Nonsmoker. Chronic anticoagulation. PLAN: I offered to do a thoracentesis, she declined. Clearly a thoracentesis in the right chest may benefit dyspnea as well as gives an etiology for her pleural effusion, it could be diastolic dysfunction, could be parapneumonic effusion. She has seen Dr. Slater in the past. We will notify him and see her tomorrow. It appears at this stage she may not require any additional support. Otherwise, input from Cardiology. Consultation note, 70 minutes, 50% direct patient care. Job ID: [id number]
[2019-10-29] MEDS ORDERED: Vancomycin 1.5 GRAM/300 ML BAG 1.5 GM in Premix Bag 1 BAG IVPB SCH (00:30)
[2019-10-29] MEDS ORDERED: Piperacillin/Tazobactam 4.5 GM in Sodium Chloride 0.9% 100 ML IVPB SCH (00:30)
[2019-10-29 01:53] LABS: #Lymphocytes 1.3 thou/uL (1.20-3.40); #Monocytes 1.2 thou/uL (0.11-0.59); #Neutrophils 17.2 thou/uL (1.40-6.50); %Basophils 0.1 % (0.0-1.0); %Eosinophils 0.1 % (0.0-10.0); %Lymphocytes 6.6 % (21.0-51.0); %Monocytes 6.1 % (0.0-10.0); %Neutrophils 87.1 % (42.0-75.0); Hemoglobin 13.3 g/dL (12.0-16.0); Mean Corpuscular HGB CONC 31.8 g/dL (32.0-36.0); Mean Corpuscular Hemoglobin 28.3 pg (27.0-31.0); Mean Corpuscular Volume 88.9 fL (78.0-98.0); Platelet Count 484 thou/uL (130-400); RBC Distribution Width 15.4 % (11.5-14.5); White Blood Cell (WBC) Count 19.8 thou/uL (4.8-10.8)
[2019-10-29 02:29] LABS: Anion Gap 16 mmol/L (10-20); BUN (Urea Nitrogen) 11 mg/dL (9.8-20.1); Calc. Creatinine Clearance 83 mL/min (70-130); Calcium 7.9 mg/dL (7.8-10.44); Carbon Dioxide 16 mmol/L (23-31); Chloride 106 mmol/L (98-107); Estimated GFR-MDRD 72; Glucose 143 mg/dL (80-115); Potassium 3.9 mmol/L (3.5-5.1); Sodium 134 mmol/L (136-145)
[2019-10-29] MEDS: Diltiazem HCl 125 MG, Admixture Fee 1 EACH in Sodium Chloride 0.9% 100 ML IVPB SCH (03:52)
--- NOTE | 2019-10-29 06:13 | PDOC.FM ---
- Subjective Subjective: Patient was laying in bed, watching TV, at the time of evaluation. She denied any acute overnight events, and stated that her SOB/tachypnea was greatly improved from the previous evaluation. She denied any chest pain, ABD pain, N/V. - Objective Vital Signs & Weight: Vital Signs (12 hours) Temp Pulse Pulse Ox 10/29/19 04:22 77 10/29/19 03:57 96.0 F L 10/29/19 01:45 98.0 F 10/28/19 23:55 101.7 F H 10/28/19 22:49 96 10/28/19 19:26 99.6 F 10/28/19 18:18 94 L Weight Weight 71.849 kg Most Recent Monitor Data Heart Rate from ECG 76 NIBP 117/69 NIBP BP-Mean 85 Respiration from ECG 30 SpO2 95 I&O: 10/27/19 10/28/19 10/29/19 06:59 06:59 06:59 Intake Total 8799 362 9519.4 Output Total 679 567 5436 Balance 722 -420 -399.6 Result Diagrams: 10/29/19 01:44 10/29/19 01:44 Phys Exam - Physical Examination Constitutional: NAD HEENT: sclera anicteric, oral pharynx no lesions Neck: supple, full ROM Respiratory: no wheezing, no rales, no rhonchi, clear to auscultation bilateral Decreased use accessory muscles of respiration Cardiovascular: RRR, no significant murmur, no rub Gastrointestinal: soft, non-tender, no distention, positive bowel sounds Musculoskeletal: no edema, pulses present Neurological: non-focal, moves all 4 limbs Psychiatric: normal affect Skin: no rash Dx/Plan (1) CHF (congestive heart failure) Code(s): I50.9 - HEART FAILURE, UNSPECIFIED Status: Acute (2) HLD (hyperlipidemia) Code(s): E78.5 - HYPERLIPIDEMIA, UNSPECIFIED Status: Acute (3) HTN (hypertension) Code(s): I10 - ESSENTIAL (PRIMARY) HYPERTENSION Status: Acute (4) Pericardial effusion Code(s): I31.3 - PERICARDIAL EFFUSION (NONINFLAMMATORY) Status: Acute - Plan Plan: Patient is a 64 y/o female who presented to the ED for evaluation of SOB. 1. Pericardial Effusion -Verified on CTA - likely contributing cause of CC -Echo: Mild Pericardial Effusion, EF(50-55%), Diastolic Dysfunction 1/3 -Cardiology: Consulted, no evidence of Cardiac Tamponade - continue to gently diures while monitoring BP -Initial EKG: No ST-Segment Elevation -Trops: Indeterminate range (0.061 >> 0.039) -Received ASA, Ceftriaxone and Levofloxacin in ED -No chest pain or evidence of cardiac tamponade, w/ SBP stable in the 100s-120s and no JVD or diminished heart sounds -TSH: 1.03 -Repeat CXR: Improving Pericardial/Pleural Effusions -Per Resident Night Team, patient had episode of elevated HR in the 200s - A- Fib vs/ A-Flutter, s/p Adenosine 6mg, 12 mg, no change -Follow-Up EKG: A-Fib vs. A-Flutter -Follow-up Trops: Indeterminate Range (0.042, 0.051) -Started on Diltiazem gtt, with Amiodarone gtt added per Cardiology recs -Repeat Echo: Pending -Will reengage w/ Cardiology and Pulm for additional recs 2. Elevated troponin, ACS R/o -Likely 2/2 demand ischemia -Risk Factors: HTN, HLD, Rheumatoid Arthritis -HEART Score: 3 -See #1 3. Dyspnea -No evidence of PE on CTA - likely 2/2 to #1 -COVID-19 Testing performed on 10/21 - reported as negative -VSS w/ CTAB -PRN Albuterol, supplemental O2 -Transferred to IMCU for High Flow Nasal Cannula / BiPap - will monitor O2Sats closely and wean when appropriate -Investigating possible infectious etiologies due to overnight fever - UCx pending -Vanc and Zosyn 4. HTN -Currently on Diltiazem gtt and Carvedilol - holding home Amlodipine regimen 5. HLD -Continue home medication regimen 6. Pneumonia, possible -s/p Levofloxacin and Ceftriaxone in ED, previously on Azithromycin prior to presenting to ED -VSS w/o elevated WBCs on initial evaluation -WBCs: 18.6 > 19.8 on 10/28 -Antibiotics DC'd initially due to possible stress-related leukocytosis - currently on Vanc and Zosyn after overnight fever of 101.7 -Investigating other infectious etiologies 7. Rheumatoid Arthritis -Not currently on DMARD disease modifying therapy -Patient has follow-up for this at the end of the month outpatient 8. CHF, unknown type -Diagnosed in September 2019 - no reported ECHO - started on Furosemide, Potassium at that time -Previously on Metoprolol, Statin, ASA - will continue -BNP mildly elevated on presentation, no evidence of fluid overload on physical exam -TTE: See Above -Strict I/Os 9. Hx of DVTs -CTA ruled out PE -Will continue home Xarelto regimen 10. Fever -T(101.7) on 10/28 - see #3, #6 -UA: Leukocytes, Blood, WBCs, Ketones -UCx: Pending PCP: [facility] ([place], [place]) Code: Full code Diet: NPO, per Cards recs DVT PPx: Home Xarelto, SCDs GI PPx: Famotidine Dispo: Patient is currently stable and admitted to the [facility] [place] for ongoing evaluation SOB, likely 2/2 to Pericardial/Pleural Effusions and recent episode of A-Fib vs. A-Flutter. Will continue Diltiazem and Amiodarone gtt as per above. Cardiology consulted, recs appreciated. Will await results of repeat Echo and continue broad-spectrum ABx with UCx pending. Expected LOS > 48H. Addendum - Attending - Attending Attestation Date/Time: 10/29/19 0913 I personally evaluated the patient and discussed the management with Dr. Boudreaux I agree with the History, Examination, Assessment and Plan documented above with any addition or exceptions noted below. 64 yo F admitted for evaluation of pericardial effusion and pleural effusion. Last night she was transferred to [facility] [place] and failed HFNC and was put on BIPAP. This morning her resp status is much improved, she is satting 97% on HFNC. Increased lasix to 40mg IV. Being treated vanc/zosyn for fever, UA was positive. Had negative COVID outpatient on 10/21. Will check inflammatory markers , TERRY, resp viral panel. Thoracentesis was rec'd by Dr. Sy, patient refused despite our review of risks/benefits. Should patient's status worsen will consider repeat COVID testing. Purulent pericardial effusion is considered unlikely at this time, repeat echo pending. Appreciate Cardiology, Pulmonology recs.
[2019-10-29] MEDS ORDERED: Furosemide 40 MG/4 ML VIAL SLOW IVP SCH (07:45)
[2019-10-29 08:10] LABS: Actual Bicarbonate (HCO3a) 20.7 mEq/L (22-28); Base Excess (BEa) -0.3 mEq/L (-2.0 to +3.0); Calcium, Ionized 1.11 mmol/L (1.12-1.30); Carboxyhemoglobin (COHb) 0.9 gm% (0.0-3.0); Hemoglobin (Hb) 14.9 g/dL (12.0-16.0); O2 Tension (PaO2), arterial 60.8 mmHg (> 80.0); Potassium - ABG Lab 3.25 mmol/L (3.70-5.30); pH, Arterial 7.53 (7.35-7.45)
[2019-10-29 08:26] LABS: CO2 Tension 25.5 mmHg (35.0-45.0); Puncture Site LR
[2019-10-29 08:28] LABS: ALV-art Gradient 192.525 (0-20)
[2019-10-29] MEDS: Piperacillin/Tazobactam 4.5 GM in Sodium Chloride 0.9% 100 ML IVPB SCH ×3 (08:41→20:24)
[2019-10-29] MEDS: Aspirin Chewable 81 MG TAB PO SCH (08:42)
[2019-10-29] MEDS: Potassium Chloride 20 MEQ TAB PO SCH ×2 (08:42→18:02)
[2019-10-29] MEDS: Atorvastatin Calcium 40 MG TAB PO SCH (08:42)
[2019-10-29] MEDS: Folic Acid 1 MG TAB PO SCH (08:43)
[2019-10-29] MEDS: Montelukast Sodium 10 mg Tablet PO SCH (08:43)
[2019-10-29] MEDS: Famotidine 20 MG TAB PO SCH (08:43)
[2019-10-29] MEDS: Metoprolol Tartrate 25 MG TAB PO SCH (08:43)
[2019-10-29] MEDS ORDERED: Vancomycin HCl 1 GM in Sodium Chloride 0.9% 250 ML 300 ML IVPB SCH (09:00)
[2019-10-29] MEDS ORDERED: Furosemide 20 MG/2 ML VIAL SLOW IVP SCH (09:00)
[2019-10-29 09:19] LABS: Troponin I 0.047 ng/mL (< 0.028)
--- NOTE | 2019-10-29 12:22 | RAD ---
Exam: Chest one view HISTORY:Follow-up pleural effusion Comparison: 10/27/2019 FINDINGS: Cardiac silhouette:Cardiomegaly Aorta: Unremarkable Pulmonary vessels: Normal Costophrenic angles: Persistent and essentially stable bilateral pleural effusions LUNGS: Bibasilar parenchymal changes Pneumothorax: None Osseous abnormalities: None IMPRESSION: Persistent bibasilar pleural effusion and parenchymal changes.
[2019-10-29] MEDS: Amiodarone 450 MG, Admixture Fee 1 EACH in Dextrose 5% in Water 250 ML IVPB SCH (13:16)
[2019-10-29] MEDS: Vancomycin 1 GM in Premix Bag 1 BAG IVPB SCH (13:35)
[2019-10-29] MEDS ORDERED: Morphine 4 MG/ML VIAL SLOW IVP SCH (15:15)
[2019-10-29 15:52] LABS: Pleural Fluid, Amylase Less than 30 U/L (Not Available); Pleural Fluid, Glucose 132 mg/dL; Pleural Fluid, LDH 465 U/L (Not Available)
[2019-10-29 16:09] LABS: RBC Count-Automated (BF) 68957 /cumm; WBC/Nucleated-Auto (BF) 29888 uL
[2019-10-29 16:17] LABS: BF Color Red; Body Fluid Source Thoracentesis Fluid; Clarity Cloudy/Turbid (Clear); Tube # EDTA
[2019-10-29 16:17] LABS: ALT (SGPT) 15 U/L (8-55); AST (SGOT) 19 U/L (5-34); Alkaline Phosphatase 94 U/L (40-110); Anion Gap 18 mmol/L (10-20); BUN (Urea Nitrogen) 13 mg/dL (9.8-20.1); Bilirubin, Total 1.2 mg/dL (0.2-1.2); Calc. Creatinine Clearance 77 mL/min (70-130); Carbon Dioxide 19 mmol/L (23-31); Chloride 100 mmol/L (98-107); Estimated GFR-MDRD 67; Globulin 3.4 g/dL (2.4-3.5); Glucose 223 mg/dL (80-115); Potassium 3.6 mmol/L (3.5-5.1); Protein, Total 6.4 g/dL (6.0-8.3); Sodium 133 mmol/L (136-145)
[2019-10-29 16:19] LABS: BF Segmented Neutrophils 50 %; Cell Count Non Hematic 50 %
[2019-10-29] MEDS ORDERED: Propofol 1,000 MG/100 ML VIAL IV ONE (16:48)
[2019-10-29] MEDS ORDERED: Midazolam HCl 2 mg/2 ml Vial ONE (17:04)
[2019-10-29] MEDS ORDERED: Morphine 4 MG/ML VIAL ONE (17:04)
[2019-10-29] MEDS ORDERED: Ventilator Sedation Protocol 1 EACH FS SCH (17:28)
[2019-10-29] MEDS ORDERED: CCU Electrolyte Replacement 1 EACH IVPB ONE (17:28)
[2019-10-29] MEDS ORDERED: Magnesium 2 GM/50 ML 2 GM in Premix Bag 1 BAG IVPB PRN (17:30)
[2019-10-29] MEDS ORDERED: Magnesium Oxide 400 MG TAB PO PRN ×2 (17:30)
[2019-10-29] MEDS ORDERED: Potassium Phosphate 12 MMOL in Sodium Chloride 0.9% 250 ML 250 ML IV PRN (17:30)
[2019-10-29] MEDS ORDERED: DISCONTINUE PREVIOUS NARCOTIC PAIN MEDICATIONS AND BENZODIAZEPINES FS SCH (17:30)
[2019-10-29] MEDS ORDERED: Morphine 2 MG/ML SYRINGE SLOW IVP PRN (17:30)
[2019-10-29] MEDS ORDERED: fentaNYL Citrate/PF 2,000 MCG in Sodium Chloride 0.9% 60 ML IV SCH (17:30)
[2019-10-29] MEDS ORDERED: Potassium Phosphate 9 MMOL in Sodium Chloride 0.9% 100 ML IVPB PRN (17:30)
[2019-10-29] MEDS ORDERED: Potassium Phosphate 15 MMOL in Sodium Chloride 0.9% 250 ML 250 ML IV PRN (17:30)
[2019-10-29] MEDS ORDERED: Potassium Chloride 40 MEQ in Sodium Chloride 0.9% 250 ML 250 ML IVPB PRN (17:30)
[2019-10-29] MEDS ORDERED: Propofol BOLUS 1,000 MG/100 ML VIAL IV PRN (17:30)
[2019-10-29] MEDS ORDERED: PHOS-NAK 1 PKT PACK PO PRN ×2 (17:30)
[2019-10-29] MEDS ORDERED: Fentanyl BOLUS 250 ML IVPB PRN (17:30)
[2019-10-29] MEDS ORDERED: CCU ELECTROLYTE REPLACEMENT PROTOCOL FS PRN (17:30)
[2019-10-29] MEDS ORDERED: Potassium Chloride 40 MEQ in Premix Bag 1 BAG IVPB PRN (17:30)
[2019-10-29] MEDS ORDERED: Potassium Chloride 20 MEQ TAB PO PRN (17:30)
[2019-10-29 17:33] LABS: Actual Bicarbonate (HCO3a) 19.4 mEq/L (22-28); Base Excess (BEa) -4.9 mEq/L (-2.0 to +3.0); CO2 Tension 33.6 mmHg (35.0-45.0); Calcium, Ionized 1.01 mmol/L (1.12-1.30); Carboxyhemoglobin (COHb) 0.5 gm% (0.0-3.0); Hemoglobin (Hb) 12.2 g/dL (12.0-16.0); Potassium - ABG Lab 3.12 mmol/L (3.70-5.30); pH, Arterial 7.38 (7.35-7.45)
[2019-10-29 17:34] LABS: Puncture Site RB
[2019-10-29] MEDS: methylPREDNISolone Sod Succ 40 MG VIAL IVP SCH ×2 (18:04→23:50)
--- NOTE | 2019-10-29 18:16 | RAD ---
CHEST ONE VIEW: 10/29/19 HISTORY: Post intubation. COMPARISON: Radiograph two days prior. FINDINGS: The patient is intubated. Endotracheal tube tip at level at the clavicles. Moderate effusions. Heart size is enlarged. Mild pulmonary edema. Enteric tube is in place with tip below diaphragm and out of the field of view. IMPRESSION: 1. Endotracheal tube tip level of clavicles. 2. Enteric tube tip below diaphragm and out of the field of view. 3. Decompensating congestive heart failure. POS: HOME
[2019-10-29] MEDS ORDERED: Albumin 25% 100 ML ONE (18:24)
[2019-10-29] MEDS: Rivaroxaban 10 MG TAB PO SCH (18:39)
[2019-10-29] MEDS ORDERED: Albumin 25% 25 GM/100 ML BOT IVPB SCH (18:45)
[2019-10-29] MEDS: Famotidine/PF 20 mg/2ml Vial SLOW IVP SCH (20:25)
[2019-10-29] MEDS: Amiodarone 200 MG TAB PO SCH (21:25)
--- NOTE | 2019-10-29 21:44 | CT ---
CT ABDOMEN AND PELVIS WITHOUT CONTRAST: 10/29/19 HISTORY: Abdominal pain. COMPARISON: None. FINDINGS: There are moderate layering pleural effusions with compressive atelectasis in the lung gases. There i s a large pericardial effusion relatively similar to the CTA 10/25/19. The pleural effusions have mild ly increased in size. Enteric tube tip at the gastric body. Some layering sludge within the gallbladder which is mildly dis tended. There is a nonobstructive 2 x 2 mm left interpolar renal calculus. There is a nonobstructive 1 x 2 m m right interpolar renal calculus. 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 There is no hydroureteronephrosis. No perinephric stranding or secondary evidence of recently passed stone. There is a fat and sigmoid colon containing left sided indirect inguinal hernia. There is a fa t and ileum containing right sided indirect inguinal hernia. No evidence for obstruction. There is a cecal bascule with anterior folding of the cecum over the ascending colon with mild rotation external ly. There is an air fluid level within the cecal bascule. The small bowel is not dilated. Moderate facet arthrosis of the lower lumbar spine. IMPRESSION: 1. Sigmoid containing left as well as ileum containing right indirect inguinal hernias without e vidence of obstruction. 2. Anterior folding and mild external rotation of the cecum anteriorly of the ascending colon wi th mild distention and air fluid level, a cecal bascule. No evidence for upstream obstruction as ther e is no dilatation of the small bowel. 3. Mild diverticular disease sigmoid colon without active current inflammation. 4. Punctate bilateral renal calculi which are nonobstructive. 5. Enlarging pleural effusions. 6. Similar appearance to the large pericardial effusion. POS: HOME
--- NOTE | 2019-10-29 21:49 | PRG ---
DATE OF SERVICE: 10/29/2019 SUBJECTIVE: Ms. Berg did not improve significantly after thoracentesis. She is moved down to the Critical Care Unit. She was developing signs of muscle fatigue. I discussed intubation with her and she agreed. She was placed in the sitting position. Bite block was placed in her mouth. She was orally intubated using a disposable fiberoptic bronchoscope with a 7.5 tube, which was secured above her main lisa. Her upper airways were remarkable for copious amounts of saliva that she was not swallowing. This was all suctioned clear prior to intubation. There were no aspirated gastric contents noticed in tracheobronchial tree. She was given 1 mg Versed and 4 mg of morphine prior to intubation, then a total of 10 mg of morphine, 2 mg of Versed total after intubation and then the sedation protocol was started. Post intubation blood gas showed a pH 7.38, CO2 of 33, and pO2 of 72. IMPRESSION: 1. Bilateral exudative effusions. 2. Pericardial fluid without evidence of tamponade? pericarditis. She has been started on steroids. 3. Obesity. 4. Rheumatoid arthritis. 5. Preserved left ventricular ejection fraction by echocardiogram. 6. History of deep venous thrombosis in the past. 7. History of diastolic dysfunction. 8. History of hypertension. 9. She is anticoagulated with Xarelto. This will be held tonight. 10. She is complaining of flank pain on the left, telling me that it was gas prior to the thoracentesis and prior to intubation. Back that was her only complaint. I ordered a CT of her abdomen and pelvis to rule out a retroperitoneal bleed and rule out a kidney stone. CRITICAL CARE TIME: 45 minutes independent of procedures. Job ID: [id number]
[2019-10-30] MEDS: Vancomycin 1 GM in Premix Bag 1 BAG IVPB SCH ×2 (02:09→13:43)
[2019-10-30] MEDS: Piperacillin/Tazobactam 4.5 GM in Sodium Chloride 0.9% 100 ML IVPB SCH ×4 (02:10→19:25)
[2019-10-30 04:21] LABS: #Lymphocytes 0.5 thou/uL (1.20-3.40); #Monocytes 0.7 thou/uL (0.11-0.59); #Neutrophils 15.4 thou/uL (1.40-6.50); %Basophils 0.1 % (0.0-1.0); %Eosinophils 0.1 % (0.0-10.0); %Lymphocytes 2.7 % (21.0-51.0); %Monocytes 4.1 % (0.0-10.0); Hemoglobin 10.6 g/dL (12.0-16.0); Mean Corpuscular HGB CONC 30.9 g/dL (32.0-36.0); Mean Corpuscular Hemoglobin 27.5 pg (27.0-31.0); Mean Corpuscular Volume 88.9 fL (78.0-98.0); Mean Platelet Volume 8.1 fL (7.4-10.4); Platelet Count 348 thou/uL (130-400); RBC Distribution Width 15.2 % (11.5-14.5); Red Blood Cell (RBC) Count 3.86 mill/uL (4.20-5.40); White Blood Cell (WBC) Count 16.5 thou/uL (4.8-10.8)
--- NOTE | 2019-10-30 04:42 | PDOC.FM ---
- Subjective Subjective: Patient was sedated and intubated at the time of evaluation. She was able to shake her head "No" to deny pain, and was able to demonstrate appropriate patient transport orderly strength and lower extremity coordination. Sensation intact x4. No significant events reported overnight by Nursing. - Objective Vital Signs & Weight: Vital Signs (12 hours) Temp Pulse Resp BP Pulse Ox 10/30/19 03:00 99.3 F 10/30/19 02:05 70 98/59 L 10/30/19 02:00 99.1 F 16 10/30/19 01:00 99.4 F 10/30/19 00:39 68 98/62 10/30/19 00:00 16 10/29/19 23:58 100.3 F H 10/29/19 22:00 16 10/29/19 21:50 71 103/61 10/29/19 21:00 99.2 F 10/29/19 20:00 16 96 10/29/19 18:28 79 90/58 L 10/29/19 18:00 16 10/29/19 17:19 84 112/95 H 10/29/19 17:15 16 10/29/19 17:00 99.8 F H Weight Weight 71.849 kg Most Recent Monitor Data Heart Rate from ECG 66 NIBP 111/70 NIBP BP-Mean 83 Respiration from ECG 18 SpO2 93 I&O: 10/28/19 10/29/19 10/30/19 06:59 06:59 06:59 Intake Total 480 1400.4 1365.9 Output Total 900 1800 740 Balance -420 -399.6 625.9 Result Diagrams: 10/30/19 03:57 10/30/19 03:57 Phys Exam - Physical Examination Constitutional: NAD HEENT: sclera anicteric, oral pharynx no lesions Neck: supple Respiratory: no wheezing, no rales, no rhonchi, clear to auscultation bilateral Cardiovascular: RRR, no significant murmur, no rub Gastrointestinal: soft, non-tender, no distention, positive bowel sounds Musculoskeletal: no edema, pulses present Neurological: non-focal, normal sensation, moves all 4 limbs Skin: no rash Dx/Plan (1) CHF (congestive heart failure) Code(s): I50.9 - HEART FAILURE, UNSPECIFIED Status: Acute (2) HLD (hyperlipidemia) Code(s): E78.5 - HYPERLIPIDEMIA, UNSPECIFIED Status: Acute (3) HTN (hypertension) Code(s): I10 - ESSENTIAL (PRIMARY) HYPERTENSION Status: Acute (4) Pericardial effusion Code(s): I31.3 - PERICARDIAL EFFUSION (NONINFLAMMATORY) Status: Acute (5) Acute respiratory failure with hypoxia Code(s): J96.01 - ACUTE RESPIRATORY FAILURE WITH HYPOXIA Status: Acute - Plan Plan: Patient is a 64 y/o female who presented to the ED for evaluation of SOB. 1. Acute Hypoxic Respiratory Failure, likely 2/2 to Pericardial/Pleural Effusions -Currently intubated in the ICU following progression of supplemental O2 from Nasal Cannula to High Flow Nasal Cannula to BiPap -Pleural/Pericardial Effusions Verified on CTA -Echo: Mild Pericardial Effusion, EF(50-55%), Diastolic Dysfunction 1/3 -Cardiology: Consulted, no evidence of Cardiac Tamponade - will continue to gently diures while monitoring BP -Initial EKG: No ST-Segment Elevation -Trops: Indeterminate range (0.061 >> 0.039) -Received ASA, Ceftriaxone and Levofloxacin in ED -TSH: 1.03 -Repeat CXR: Improving Pericardial/Pleural Effusions -Per Resident Night Team, patient had episode of elevated HR in the 200s, s/p Adenosine 6mg, 12 mg, no change -Follow-up EKG: A-Fib vs. A-Flutter -Follow-up Trops: Indeterminate Range (0.042, 0.051) -Started on Diltiazem gtt, with Amiodarone gtt added per Cardiology recs -Repeat Echo: Pending -ABG: Resolving Respiratory Alkalosis -D-Dime: 6.98 -Ferritin: 1145 -LDH: 424 -CRP: 17.65 -Procal: 1.1 -RVP: Pending -TERRY Panel: Pending -s/p Thoracentesis w/ exudative fluid based on Light's Criteria - many WBCs, RBCs present - DDx includes ARDS, Empyema, Autoimmune Dysfunction, Malignancy -Will reengage w/ Cardiology and Pulm for additional recs 2. Elevated troponin, ACS R/o -Likely 2/2 demand ischemia -Risk Factors: HTN, HLD, Rheumatoid Arthritis -HEART Score: 3 -Multiple EKGs show now signs of ST-Segment changes -See #1 3. Dyspnea -No evidence of PE on CTA - likely 2/2 to #1 -COVID-19 Testing performed on 10/21 - reported as negative - will consider retesting -VSS w/ CTAB -PRN Albuterol, supplemental O2 -Transferred to IMCU for High Flow Nasal Cannula / BiPap - now intubated in ICU - will continue to monitor O2Sats closely -Investigating possible infectious etiologies due to overnight fever -UCx/BCx pending -Vanc and Zosyn -See #1 4. HTN -Currently stable, with BPs in the lower range of normal -Currently on Diltiazem gtt - will consider lower today based on BPs -Holding home Carvedilol and Amlodipine regimen 5. HLD -Holding home medication regimen 6. Pneumonia, r/o -s/p Levofloxacin and Ceftriaxone in ED, previously on Azithromycin prior to presenting to ED -VSS w/o elevated WBCs on initial evaluation, however patient documented 2 fevers since hospitalization -Started on Augmentin, per Cardiology recs -WBCs: 16.5 on 10/29 -Currently on Vanc and Zosyn after overnight fever of 101.7 on 10/28 - adequate broad-spectrum coverage initiated w/ no additional elevated temps records -Investigating other infectious, autoimmune etiologies 7. Rheumatoid Arthritis -Not currently on DMARD disease modifying therapy -Patient has follow-up for this at the end of the month outpatient -TERRY Panel: Pending -Will consider possible autoimmune causes for exudative pleural effusions as per above - results pending 8. CHF, unknown type -Diagnosed in September 2019 - no reported ECHO - started on Furosemide, Potassium at that time -Previously on Metoprolol, Statin, ASA - will continue -BNP mildly elevated on presentation, no evidence of fluid overload on physical exam -TTE: See Above -Strict I/Os 9. Hx of DVTs -CTA ruled out PE -Previously on Xarelto 20 mg PO daily - will hold based on Pulm recs 10. Fever -T(101.7) on 10/28 - see #1, #3, #6 -UA: Leukocytes, Blood, WBCs, Ketones -UCx: Pending PCP: [facility] ([place], [place]) Code: Full Code Diet: NPO, per Cards recs DVT PPx: SCDs - Currently Holding Home Xarelto, per Pulm Recs GI PPx: Famotidine Dispo: Patient's condition is guarded and she is intubated in the ICU for ongoing evaluation of Acute Hypoxic Respiratory Failure, likely 2/2 to Pericardial/Pleural Effusions, exacerbated by recent episode of A-Fib vs. A- Flutter. Will modify Diltiazem gtt as per above. Cardiology and Pulm consulted, recs appreciated. Will await results of repeat Echo and continue broad-spectrum ABx while awaiting additional lab studies as per above. Expected LOS > 48H. Addendum - Attending - Attending Attestation Date/Time: 10/30/19 3920 I personally evaluated the patient and discussed the management with Dr. Boudreaux I agree with the History, Examination, Assessment and Plan documented above with any addition or exceptions noted below. 64 yo F admitted for evaluation of pericardial effusion and pleural effusion. Yesterday she was BIPAP throughout the day but her respiratory muscles were tiring throughout the day and was ultimately intubated about 5pm. She is currently on vanc, zosyn, and methylprednisolone. Her diltiazem drip was stopped this morning. Thoracentesis showed exudative fluid, many RBCs/WBCs. Will await culture results. Vent management per pulmonology.
[2019-10-30 04:43] LABS: Anion Gap 14 mmol/L (10-20); BUN (Urea Nitrogen) 15 mg/dL (9.8-20.1); Calc. Creatinine Clearance 88 mL/min (70-130); Calcium 7.7 mg/dL (7.8-10.44); Carbon Dioxide 18 mmol/L (23-31); Chloride 104 mmol/L (98-107); Estimated GFR-MDRD 78; Glucose 229 mg/dL (80-115); Potassium 3.3 mmol/L (3.5-5.1); Sodium 133 mmol/L (136-145)
[2019-10-30] MEDS: Furosemide 40 MG/4 ML VIAL SLOW IVP SCH ×2 (05:09→13:44)
[2019-10-30] MEDS: methylPREDNISolone Sod Succ 40 MG VIAL IVP SCH ×4 (05:09→23:22)
[2019-10-30 07:17] LABS: Actual Bicarbonate (HCO3a) 21.3 mEq/L (22-28); Base Excess (BEa) -1.3 mEq/L (-2.0 to +3.0); CO2 Tension 27.7 mmHg (35.0-45.0); Calcium, Ionized 1.07 mmol/L (1.12-1.30); Carboxyhemoglobin (COHb) 0.5 gm% (0.0-3.0); Hemoglobin (Hb) 8.8 g/dL (12.0-16.0); Potassium - ABG Lab 3.32 mmol/L (3.70-5.30)
[2019-10-30 07:18] LABS: ALV-art Gradient 371.925 (0-20); O2 Tension (PaO2), arterial 56.9 mmHg (> 80.0); Puncture Site RRA
[2019-10-30] MEDS ORDERED: Dextrose 50% Abboject 50 ML SYRINGE SLOW IVP PRN ×2 (07:56→16:19)
[2019-10-30] MEDS ORDERED: Dextrose 5% in Water 1,000 ML IV PRN ×2 (07:56→16:19)
[2019-10-30] MEDS ORDERED: HumaLOG 300 UNITS/3 ML VIAL SC PRN ×2 (07:56→16:19)
--- NOTE | 2019-10-30 08:42 | OP ---
DATE OF PROCEDURE: 10/29/2019 PROCEDURE PERFORMED: Thoracentesis. INDICATIONS FOR PROCEDURE: Kari Berg agreed to have a thoracentesis today after declining yesterday. DESCRIPTION OF PROCEDURE: With some difficulty, she was placed in the sitting position. Her right posterior hemithorax was cleansed with chlorhexidine. Fluid was localized using a #22-gauge needle after 10 mL of 1% lidocaine was used to anesthetize the skin and the pleura. 400 mL of bloody pleural fluid was evacuated into a syringe and a vacuum bottle and sent for the appropriate studies. Studies have been reviewed and the fluid is exudative. Gram stain of the pleural fluid shows no organisms. She tolerated the procedure well. No air was aspirated. Job ID: [id number]
[2019-10-30] MEDS ORDERED: Furosemide 20 MG/2 ML VIAL SLOW IVP SCH (09:00)
[2019-10-30] MEDS: Famotidine/PF 20 mg/2ml Vial SLOW IVP SCH ×2 (09:30→19:26)
[2019-10-30] MEDS: Amiodarone 200 MG TAB PO SCH ×2 (09:30→19:26)
[2019-10-30] MEDS: Potassium Chloride 20 MEQ TAB PO SCH ×2 (09:31→16:59)
[2019-10-30] MEDS: Folic Acid 1 MG TAB PO SCH (09:31)
[2019-10-30] MEDS: Atorvastatin Calcium 40 MG TAB PO SCH (09:31)
[2019-10-30] MEDS: Metoprolol Tartrate 25 MG TAB PO SCH (09:31)
[2019-10-30] MEDS: Aspirin Chewable 81 MG TAB PO SCH (09:31)
--- NOTE | 2019-10-30 10:58 | PRG ---
DATE OF SERVICE: 10/30/2019 SUBJECTIVE: Ms. Berg is stabilized. She is awake and alert. She denies pain. Her was in the room with her. OBJECTIVE: VITAL SIGNS: Heart rate in the 70s, blood pressure is 90s, respiratory rates in the teens. LUNGS: Clear. HEART: Regular rhythm. S1, S2 are normal. ABDOMEN: Soft and nontender. LABORATORY DATA: White count 16.5, hemoglobin 10.6, platelets 348. Sodium 133, potassium 3.3, chloride 104, bicarb 18, BUN 15, creatinine 0.75, glucose 229. pH 7.5, CO2 is 27, and pO2 56. IMPRESSION: 1. Respiratory failure associated with severe abdominal pain, bilateral pleural effusions and pericarditis. Her abdomen pelvis CT showed bilateral kidney stones, but they were small and nonobstructive. She also had bilateral inguinal hernias, but did not appear to be obstructing bowel. 2. Overall, she appears to be stable. 3. We did go up on her PEEP a little bit today and turned her rate down to 10. CRITICAL CARE TIME: 30 minutes. Job ID: [id number]
--- NOTE | 2019-10-30 12:09 | PDOC.CPN ---
- Subjective Date: 10/30/19 Time: 12:07 Interval history: Sedated on propafol - Objective Allergies/Adverse Reactions: Allergies Allergy/AdvReac Type Severity Reaction Status Date / Time Iodinated Contrast Media Allergy Mild Itching Verified 10/25/19 21:01 ibuprofen [From Advil] Allergy Swelling/ Verified 10/25/19 21:01 Hard Time Breathing Visit Medications: Current Medications Acetaminophen (Tylenol) 650 mg PO Q4H PRN PRN Reason: Headache/Fever/Mild Pain (1-3) Last Admin: 10/29/19 00:19 Dose: 650 mg Albuterol Sulfate (Ventolin) 2.5 mg NEB [id number] PRN PRN Reason: Wheezing Last Admin: 10/27/19 08:15 Dose: 2.5 mg Amiodarone HCl (Cordarone) 400 mg PO BID COUNTS INCLUDE 234 BEDS AT THE [facility] Last Admin: 10/30/19 09:30 Dose: 400 mg Aspirin (Aspirin Chewable) 81 mg PO DAILY COUNTS INCLUDE 234 BEDS AT THE [facility] Last Admin: 10/30/19 09:31 Dose: 81 mg Atorvastatin Calcium (Lipitor) 40 mg PO DAILY COUNTS INCLUDE 234 BEDS AT THE [facility] Last Admin: 10/30/19 09:31 Dose: 40 mg Dextrose/Water (Dextrose 50%) 25 gm SLOW IVP PRN PRN PRN Reason: Hypoglycemia Famotidine (Pepcid) 20 mg SLOW IVP BID COUNTS INCLUDE 234 BEDS AT THE [facility] Last Admin: 10/30/19 09:30 Dose: 20 mg Folic Acid (Folvite) 1 mg PO DAILY COUNTS INCLUDE 234 BEDS AT THE [facility] Last Admin: 10/30/19 09:31 Dose: 1 mg Furosemide (Lasix) 40 mg SLOW IVP 0600,1400 COUNTS INCLUDE 234 BEDS AT THE [facility] Last Admin: 10/30/19 05:09 Dose: 40 mg Glucagon (Glucagon) 1 mg IM PRN PRN PRN Reason: Hypoglycemia Diltiazem HCl 125 mg/Miscellaneous Medication 1 each/ Sodium Chloride 125 mls @ 10 mls/hr IVPB INF [facility]; Protocol Last Admin: 10/29/19 03:52 Dose: 125 mls Vancomycin HCl 1 gm/ Device 200 mls @ 200 mls/hr IVPB 0100,1300 COUNTS INCLUDE 234 BEDS AT THE [facility] Last Admin: 10/30/19 02:09 Dose: 200 mls Piperacillin Sod/Tazobactam (Sod 4.5 gm/ Sodium Chloride) 100 mls @ 200 mls/hr IVPB 0200,0800,1400,2000 COUNTS INCLUDE 234 BEDS AT THE [facility] Last Admin: 10/30/19 09:30 Dose: 100 mls Potassium Chloride 40 meq/ (Sodium Chloride) 270 mls @ 135 mls/hr IVPB ASDIR PRN PRN Reason: FOR SERUM K+ 2.5 - 3.5 Potassium Chloride 40 meq/ (Device) 100 mls @ 50 mls/hr IVPB ASDIR PRN PRN Reason: FOR SERUM K+ 2.5 - 3.5 Magnesium Sulfate 1 gm/ Sodium (Chloride) 102 mls @ 102 mls/hr IV PRN PRN PRN Reason: MAG LEVEL 1.4 - 2.0 Magnesium Sulfate 2 gm/ Device 50 mls @ 50 mls/hr IVPB ASDIR PRN PRN Reason: MAGNESIUM < 1.4 Potassium Phosphate 9 mmol/ (Sodium Chloride) 103 mls @ 25.75 mls/hr IVPB ASDIR PRN PRN Reason: Phosphate 1.0-1.8 Potassium Phosphate 12 mmol/ (Sodium Chloride) 254 mls @ 63.5 mls/hr IV ASDIR PRN PRN Reason: Serum phosphate 0.5-0.9 Potassium Phosphate 15 mmol/ (Sodium Chloride) 255 mls @ 63.75 mls/hr IV ASDIR PRN PRN Reason: Serum Phos < 0.5 Fentanyl Citrate 2,000 mcg/ (Sodium Chloride) 100 mls @ 0 mls/hr IV INF COUNTS INCLUDE 234 BEDS AT THE [facility]; Protocol Stop: 11/28/19 17:30 Fentanyl Citrate (Fentanyl Bolus) 250 mls @ 0 mls/hr IVPB PRN PRN PRN Reason: Breakthrough pain/agitation Stop: 11/28/19 17:30 Dextrose/Water (D5w) 1,000 mls @ 0 mls/hr IV .Q0M PRN PRN Reason: Hypoglycemia Insulin Human Lispro (Humalog) 0 units SC .MILD SLIDING SCALE PRN PRN Reason: Mild Correctional Scale Lorazepam (Ativan) 2 mg SLOW IVP Q1H PRN PRN Reason: Breakthrough agitation Stop: 11/28/19 17:30 Magnesium Oxide (Magnesium Oxide) 400 mg PO BIDPRN PRN PRN Reason: FOR SERUM MAG 1.4 - 2.0 Magnesium Oxide (Magnesium Oxide) 800 mg PO PRN PRN PRN Reason: FOR SERUM MAG < 1.4 Methylprednisolone Sodium Succinate (Solu-Medrol) 20 mg IVP Q6HR COUNTS INCLUDE 234 BEDS AT THE [facility] Last Admin: 10/30/19 05:09 Dose: 20 mg Metoprolol Tartrate (Lopressor) 25 mg PO DAILY COUNTS INCLUDE 234 BEDS AT THE [facility] Last Admin: 10/30/19 09:31 Dose: Not Given Miscellaneous Medication (Pharmacy To Dose) 1 each IVPB PRN PRN PRN Reason: Pharmacy to dose Miscellaneous Medication (Phos-Nak) 1 pkt PO TIDPRN PRN PRN Reason: FOR PHOS LEVEL 1.0 - 1.8 Miscellaneous Medication (Phos-Nak) 2 pkt PO TIDPRN PRN PRN Reason: FOR PHOS LEVEL 0.5 - 1.0 Morphine Sulfate (Morphine) 2 mg SLOW IVP Q1H PRN PRN Reason: BREAKTHROUGH PAIN/Agitation Stop: 11/28/19 17:30 Ccu Electrolyte (Replacement Protocol) 0 each FS PRN PRN PRN Reason: FOR ELECTROLYTE REPLACEMENT Discontinue Previous Narcotic Pain Medications And Benzodiazepines 1 each FS .ONE COUNTS INCLUDE 234 BEDS AT THE [facility] Stop: 11/28/19 17:30 Potassium Chloride (K-Dur) 20 meq PO BID-WM COUNTS INCLUDE 234 BEDS AT THE [facility] Last Admin: 10/30/19 09:31 Dose: 20 meq Potassium Chloride (K-Dur) 40 meq PO ASDIR PRN PRN Reason: FOR SERUM K+ 2.5 - 3.5 Potassium Chloride (Klor-Con) 40 meq PER TUBE ASDIR PRN PRN Reason: FOR SERUM K+ 2.5-3.5 Last Admin: 10/30/19 05:09 Dose: 40 meq Propofol (Diprivan) 1,000 mg IV INF PRN; Protocol PRN Reason: TO ACHIEVE GOAL RASS Stop: 11/28/19 17:30 Propofol (Diprivan Bolus) 20 mg IV Q5MIN PRN PRN Reason: BREAKTHROUGH AGITATION Stop: 11/28/19 17:30 Sodium Chloride (Flush - Normal Saline) 10 ml IVF PRN PRN PRN Reason: Saline Flush Last Admin: 10/27/19 08:06 Dose: 10 ml Vital Signs & Weight: Vital Signs Temp Pulse Resp BP Pulse Ox 10/30/19 11:00 98.7 F 10/30/19 10:38 65 84/55 L 10/30/19 10:00 16 10/30/19 08:00 16 98 10/30/19 07:00 98.7 F 10/30/19 06:40 73 108/70 10/30/19 06:00 99.4 F 16 10/30/19 05:00 99.1 F 10/30/19 04:00 16 10/30/19 03:00 99.3 F 10/30/19 02:05 70 98/59 L 10/30/19 02:00 99.1 F 16 10/30/19 01:00 99.4 F 10/30/19 00:39 68 98/62 Weight 159 lb 6.307 oz - Physical Exam General: no apparent distress Neck: no masses, no bruit Cardiac: regular rate, regular rhythm Lungs: normal breath sounds, normal exam Abdomen: soft Extremities: no edema - Labs Result Diagrams: 10/30/19 03:57 10/30/19 03:57 Troponin/CKMB CK-MB (CK-2) 0.6 ng/mL (0-6.6) 10/27/19 23:41 Troponin I 0.047 ng/mL (< 0.028) H 10/29/19 08:26 - Assessment/Plan Assessment/Plan: Respiratory failure Pericarditis Small pericardial effusion HTN Bronchitis No evidence of tamponade
[2019-10-30 12:18] LABS: Vancomycin, Trough 15.5 ug/mL
[2019-10-30] MEDS: Propofol 1,000 MG/100 ML VIAL IV PRN ×2 (12:27→22:11)
--- NOTE | 2019-10-30 16:20 | PDOC.BPN ---
- Brief Progress Note afternoon lasix held started tube feeds ssi insulin
[2019-10-30] MEDS: Lorazepam 2 MG/ML VIAL SLOW IVP PRN (19:25)
[2019-10-31] MEDS: Vancomycin 1 GM in Premix Bag 1 BAG IVPB SCH ×2 (00:58→13:03)
[2019-10-31] MEDS: Piperacillin/Tazobactam 4.5 GM in Sodium Chloride 0.9% 100 ML IVPB SCH ×4 (01:24→20:06)
[2019-10-31 04:29] LABS: #Lymphocytes 0.5 thou/uL (1.20-3.40); #Monocytes 0.8 thou/uL (0.11-0.59); #Neutrophils 14.4 thou/uL (1.40-6.50); %Eosinophils 0.1 % (0.0-10.0); %Lymphocytes 3.3 % (21.0-51.0); %Neutrophils 91.7 % (42.0-75.0); Hemoglobin 10.3 g/dL (12.0-16.0); Mean Corpuscular HGB CONC 32.4 g/dL (32.0-36.0); Mean Corpuscular Hemoglobin 28.3 pg (27.0-31.0); Mean Corpuscular Volume 87.2 fL (78.0-98.0); Mean Platelet Volume 8.2 fL (7.4-10.4); Platelet Count 383 thou/uL (130-400); RBC Distribution Width 14.9 % (11.5-14.5); Red Blood Cell (RBC) Count 3.64 mill/uL (4.20-5.40); White Blood Cell (WBC) Count 15.7 thou/uL (4.8-10.8)
[2019-10-31 04:48] LABS: Anion Gap 13 mmol/L (10-20); BUN (Urea Nitrogen) 21 mg/dL (9.8-20.1); Calc. Creatinine Clearance 81 mL/min (70-130); Calcium 8.2 mg/dL (7.8-10.44); Carbon Dioxide 22 mmol/L (23-31); Chloride 106 mmol/L (98-107); Estimated GFR-MDRD 71; Glucose 243 mg/dL (80-115); Potassium 3.7 mmol/L (3.5-5.1); Sodium 137 mmol/L (136-145)
--- NOTE | 2019-10-31 04:51 | PDOC.FM ---
- Subjective Subjective: Patient was sedated and intubated, lying in bed in no acute respiratory distress. She was able to follow basic commands, but coughed frequently due to excessive secretions. No overnight events reported by Nursing. - Objective Vital Signs & Weight: Vital Signs (12 hours) Temp Pulse Resp BP Pulse Ox 10/31/19 03:29 61 10/31/19 02:00 24 H 10/31/19 00:00 22 H 10/30/19 23:00 98.7 F 10/30/19 22:53 67 98/60 10/30/19 22:00 19 10/30/19 20:00 15 94 L 10/30/19 19:00 98.6 F 10/30/19 18:40 68 91 L 10/30/19 18:00 18 Weight Admit Weight 71.668 kg Weight 72.3 kg Most Recent Monitor Data Heart Rate from ECG 63 NIBP 100/60 NIBP BP-Mean 73 Respiration from ECG 22 SpO2 92 I&O: 10/29/19 10/30/19 10/31/19 06:59 06:59 06:59 Intake Total 1400.4 1365.9 757 Output Total 5825 042 2950 Balance -399.6 470.9 -848 Result Diagrams: 10/31/19 03:57 10/31/19 03:57 Phys Exam - Physical Examination Constitutional: NAD Frequent coughing, required suction HEENT: oral pharynx no lesions Neck: supple Respiratory: no wheezing, no rales Course breath sounds bilaterally Cardiovascular: RRR, no significant murmur, no rub Gastrointestinal: soft, non-tender, no distention, positive bowel sounds Musculoskeletal: no edema, pulses present Able to squeeze hands x2 Skin: no rash Dx/Plan (1) CHF (congestive heart failure) Code(s): I50.9 - HEART FAILURE, UNSPECIFIED Status: Acute (2) HLD (hyperlipidemia) Code(s): E78.5 - HYPERLIPIDEMIA, UNSPECIFIED Status: Acute (3) HTN (hypertension) Code(s): I10 - ESSENTIAL (PRIMARY) HYPERTENSION Status: Acute (4) Pericardial effusion Code(s): I31.3 - PERICARDIAL EFFUSION (NONINFLAMMATORY) Status: Acute (5) Acute respiratory failure with hypoxia Code(s): J96.01 - ACUTE RESPIRATORY FAILURE WITH HYPOXIA Status: Acute - Plan Plan: Patient is a 64 y/o female who presented to the ED for evaluation of SOB. 1. Acute Hypoxic Respiratory Failure, likely 2/2 to Pericardial/Pleural Effusions -Currently intubated in the ICU following progression of supplemental O2 from Nasal Cannula to High Flow Nasal Cannula to BiPap -Pleural/Pericardial Effusions Verified on CTA -Echo: Mild Pericardial Effusion, EF(50-55%), Diastolic Dysfunction 1/3 -Cardiology: Consulted, no evidence of Cardiac Tamponade - will continue to gently diures while monitoring BP -Initial EKG: No ST-Segment Elevation -Trops: Indeterminate range (0.061 >> 0.039) -Received ASA, Ceftriaxone and Levofloxacin in ED -TSH: 1.03 -Repeat CXR: Improving Pericardial/Pleural Effusions -Per Resident Night Team, patient had episode of elevated HR in the 200s, s/p Adenosine 6mg, 12 mg, no change -Follow-up EKG: A-Fib vs. A-Flutter -Follow-up Trops: Indeterminate Range (0.042, 0.051) -Started on Diltiazem gtt, with Amiodarone gtt added per Cardiology recs -Repeat Echo: Pending -ABG: Resolving Respiratory Alkalosis -D-Dimer: 6.98 -Ferritin: 1145 -LDH: 424 -CRP: 17.65 -Procal: 1.1 -RVP: NAF -TERRY Panel: Pending -s/p Thoracentesis w/ exudative fluid based on Light's Criteria - many WBCs, RBCs present - DDx includes ARDS, Empyema, Autoimmune Dysfunction, Malignancy -Pleural Fluid Culture: Pending -Will reengage w/ Cardiology and Pulm for additional recs 2. Elevated troponin, ACS R/o -Likely 2/2 demand ischemia -Risk Factors: HTN, HLD, Rheumatoid Arthritis -HEART Score: 3 -Multiple EKGs show now signs of ST-Segment changes -See #1 3. Dyspnea -No evidence of PE on CTA - likely 2/2 to #1 -COVID-19 Testing performed on 10/21 - reported as negative - will consider retesting -VSS w/ CTAB -PRN Albuterol, supplemental O2 -Transferred to IMCU for High Flow Nasal Cannula / BiPap - now intubated in ICU - will continue to monitor O2Sats closely -Investigating possible infectious etiologies due to overnight fever -UCx/BCx pending -Vanc and Zosyn -Will attempt breathing trials when tolerated by patient -See #1 4. HTN -Currently stable, with BPs in the lower range of normal -Diltiazem and Amiodarone gtt - DC'd 5. HLD -Will continue patient's home medication regimen 6. Pneumonia, r/o -s/p Levofloxacin and Ceftriaxone in ED, previously on Azithromycin prior to presenting to ED -VSS w/o elevated WBCs on initial evaluation, however patient documented 2 fevers since hospitalization -Started on Augmentin, per Cardiology recs - DC'd based on FOUO -WBCs: 16.5 on 10/29 -Currently on Vanc and Zosyn after overnight fever of 101.7 on 10/28 - adequate broad-spectrum coverage initiated w/ no additional elevated temps records -Investigating other infectious, autoimmune etiologies 7. Rheumatoid Arthritis -Not currently on DMARD -Patient has follow-up for this at the end of the month outpatient -TERRY Panel: Pending -Will consider possible autoimmune causes for exudative pleural effusions as per above - results pending 8. CHF, unknown type -Diagnosed in September 2019 - no reported ECHO - started on Furosemide, Potassium at that time -Previously on Metoprolol, Statin, ASA - will continue -BNP mildly elevated on presentation, no evidence of fluid overload on physical exam -TTE: See Above -Strict I/Os 9. Hx of DVTs -CTA ruled out PE -Previously on Xarelto 20 mg PO daily - will hold based on Pulm recs 10. Fever -T(101.7) on 10/28 - see #1, #3, #6 -UA: Leukocytes, Blood, WBCs, Ketones -UCx: Pending 11. Hyperglycemia -Likely 2/2 steroid use - no documented Hx of DM -Q6H Accuchecks -Lantus 5u QAM -Moderate SSI -Hypoglycemia Protocol PCP: [facility] ([place], [place]) Code: Full Code Diet: Tube Feedings, Managed by Dietary DVT PPx: SCDs - Currently Holding Home Xarelto, per Pulm Recs GI PPx: Famotidine Dispo: Patient's condition is guarded and she is intubated in the ICU for ongoing evaluation of Acute Hypoxic Respiratory Failure, likely 2/2 to Pericardial/Pleural Effusions, exacerbated by recent episode of A-Fib vs. A- Flutter. Cardiology and Pulm consulted, recs appreciated. Will await results of repeat Echo and continue broad-spectrum ABx while awaiting additional lab studies as per above. Initiate Lantus 5u SC QAM and increase SSI to Moderate intensity in order to meet target Blood Glucose of 140 -180. Expected LOS > 48H. Addendum - Attending - Attending Attestation Date/Time: 10/31/19 1016 I personally evaluated the patient and discussed the management with Dr. Boudreaux I agree with the History, Examination, Assessment and Plan documented above with any addition or exceptions noted below. 64 yo F admitted for evaluation of pericardial effusion and pleural effusion. Intubated 10/28. She continues on ventilator. 1L negative fluid balance yesterday. Exudative fluid, pending culture. Source for these effusions is still undetermined. TERRY panel pending. She is currently on vanc, zosyn, and methylprednisolone. She is off the amiodarone and diltiazem drips. Appreciate Pulmonology and Cardiology recommendations. Today is going for pericardial window and pericardial biopsy. .
[2019-10-31] MEDS: methylPREDNISolone Sod Succ 40 MG VIAL IVP SCH ×3 (05:23→17:00)
[2019-10-31] MEDS: Furosemide 40 MG/4 ML VIAL SLOW IVP SCH (05:23)
[2019-10-31] MEDS: Propofol 1,000 MG/100 ML VIAL IV PRN ×3 (05:42→22:51)
[2019-10-31 06:38] LABS: Base Excess (BEa) 1.2 mEq/L (-2.0 to +3.0); Calcium, Ionized 1.13 mmol/L (1.12-1.30); Carboxyhemoglobin (COHb) 0.1 gm% (0.0-3.0); Hemoglobin (Hb) 11.2 g/dL (12.0-16.0); O2 Tension (PaO2), arterial 60.1 mmHg (> 80.0); Potassium - ABG Lab 3.28 mmol/L (3.70-5.30); pH, Arterial 7.53 (7.35-7.45)
[2019-10-31 06:45] LABS: Puncture Site RRA
--- NOTE | 2019-10-31 07:12 | PDOC.CPN ---
- Subjective Date: 10/31/19 Time: 07:11 Interval history: INtubated, sedated. - Objective Allergies/Adverse Reactions: Allergies Allergy/AdvReac Type Severity Reaction Status Date / Time Iodinated Contrast Media Allergy Mild Itching Verified 10/25/19 21:01 ibuprofen [From Advil] Allergy Swelling/ Verified 10/25/19 21:01 Hard Time Breathing Visit Medications: Current Medications Acetaminophen (Tylenol) 650 mg PO Q4H PRN PRN Reason: Headache/Fever/Mild Pain (1-3) Last Admin: 10/29/19 00:19 Dose: 650 mg Albuterol Sulfate (Ventolin) 2.5 mg NEB [id number] PRN PRN Reason: Wheezing Last Admin: 10/27/19 08:15 Dose: 2.5 mg Amiodarone HCl (Cordarone) 400 mg PO BID [facility] Last Admin: 10/30/19 19:26 Dose: 400 mg Aspirin (Aspirin Chewable) 81 mg PO DAILY [facility] Last Admin: 10/30/19 09:31 Dose: 81 mg Atorvastatin Calcium (Lipitor) 40 mg PO DAILY [facility] Last Admin: 10/30/19 09:31 Dose: 40 mg Dextrose/Water (Dextrose 50%) 25 gm SLOW IVP PRN PRN PRN Reason: Hypoglycemia Famotidine (Pepcid) 20 mg SLOW IVP BID [facility] Last Admin: 10/30/19 19:26 Dose: 20 mg Folic Acid (Folvite) 1 mg PO DAILY [facility] Last Admin: 10/30/19 09:31 Dose: 1 mg Furosemide (Lasix) 40 mg SLOW IVP 0600,1400 [facility] Last Admin: 10/31/19 05:23 Dose: 40 mg Glucagon (Glucagon) 1 mg IM PRN PRN PRN Reason: Hypoglycemia Diltiazem HCl 125 mg/Miscellaneous Medication 1 each/ Sodium Chloride 125 mls @ 10 mls/hr IVPB INF [facility]; Protocol Last Admin: 10/29/19 03:52 Dose: 125 mls Vancomycin HCl 1 gm/ Device 200 mls @ 200 mls/hr IVPB 0100,1300 [facility] Last Admin: 10/31/19 00:58 Dose: 200 mls Piperacillin Sod/Tazobactam (Sod 4.5 gm/ Sodium Chloride) 100 mls @ 200 mls/hr IVPB 0200,0800,1400,2000 [facility] Last Admin: 10/31/19 01:24 Dose: 100 mls Potassium Chloride 40 meq/ (Sodium Chloride) 270 mls @ 135 mls/hr IVPB ASDIR PRN PRN Reason: FOR SERUM K+ 2.5 - 3.5 Potassium Chloride 40 meq/ (Device) 100 mls @ 50 mls/hr IVPB ASDIR PRN PRN Reason: FOR SERUM K+ 2.5 - 3.5 Magnesium Sulfate 1 gm/ Sodium (Chloride) 102 mls @ 102 mls/hr IV PRN PRN PRN Reason: MAG LEVEL 1.4 - 2.0 Magnesium Sulfate 2 gm/ Device 50 mls @ 50 mls/hr IVPB ASDIR PRN PRN Reason: MAGNESIUM < 1.4 Potassium Phosphate 9 mmol/ (Sodium Chloride) 103 mls @ 25.75 mls/hr IVPB ASDIR PRN PRN Reason: Phosphate 1.0-1.8 Potassium Phosphate 12 mmol/ (Sodium Chloride) 254 mls @ 63.5 mls/hr IV ASDIR PRN PRN Reason: Serum phosphate 0.5-0.9 Potassium Phosphate 15 mmol/ (Sodium Chloride) 255 mls @ 63.75 mls/hr IV ASDIR PRN PRN Reason: Serum Phos < 0.5 Fentanyl Citrate 2,000 mcg/ (Sodium Chloride) 100 mls @ 0 mls/hr IV INF [facility]; Protocol Stop: 11/28/19 17:30 Fentanyl Citrate (Fentanyl Bolus) 250 mls @ 0 mls/hr IVPB PRN PRN PRN Reason: Breakthrough pain/agitation Stop: 11/28/19 17:30 Dextrose/Water (D5w) 1,000 mls @ 0 mls/hr IV .Q0M PRN PRN Reason: Hypoglycemia Insulin Human Lispro (Humalog) 0 units SC .MILD SLIDING SCALE PRN PRN Reason: Mild Correctional Scale Last Admin: 10/31/19 05:26 Dose: 3 unit Lorazepam (Ativan) 2 mg SLOW IVP Q1H PRN PRN Reason: Breakthrough agitation Stop: 11/28/19 17:30 Last Admin: 10/30/19 19:25 Dose: 2 mg Magnesium Oxide (Magnesium Oxide) 400 mg PO BIDPRN PRN PRN Reason: FOR SERUM MAG 1.4 - 2.0 Magnesium Oxide (Magnesium Oxide) 800 mg PO PRN PRN PRN Reason: FOR SERUM MAG < 1.4 Methylprednisolone Sodium Succinate (Solu-Medrol) 20 mg IVP Q6HR [facility] Last Admin: 10/31/19 05:23 Dose: 20 mg Metoprolol Tartrate (Lopressor) 25 mg PO DAILY [facility] Last Admin: 10/30/19 09:31 Dose: Not Given Miscellaneous Medication (Pharmacy To Dose) 1 each IVPB PRN PRN PRN Reason: Pharmacy to dose Miscellaneous Medication (Phos-Nak) 1 pkt PO TIDPRN PRN PRN Reason: FOR PHOS LEVEL 1.0 - 1.8 Miscellaneous Medication (Phos-Nak) 2 pkt PO TIDPRN PRN PRN Reason: FOR PHOS LEVEL 0.5 - 1.0 Morphine Sulfate (Morphine) 2 mg SLOW IVP Q1H PRN PRN Reason: BREAKTHROUGH PAIN/Agitation Stop: 11/28/19 17:30 Ccu Electrolyte (Replacement Protocol) 0 each FS PRN PRN PRN Reason: FOR ELECTROLYTE REPLACEMENT Discontinue Previous Narcotic Pain Medications And Benzodiazepines 1 each FS .ONE [facility] Stop: 11/28/19 17:30 Potassium Chloride (K-Dur) 20 meq PO BID-WM [facility] Last Admin: 10/30/19 16:59 Dose: 20 meq Potassium Chloride (K-Dur) 40 meq PO ASDIR PRN PRN Reason: FOR SERUM K+ 2.5 - 3.5 Potassium Chloride (Klor-Con) 40 meq PER TUBE ASDIR PRN PRN Reason: FOR SERUM K+ 2.5-3.5 Last Admin: 10/30/19 05:09 Dose: 40 meq Propofol (Diprivan) 1,000 mg IV INF PRN; Protocol PRN Reason: TO ACHIEVE GOAL RASS Stop: 11/28/19 17:30 Last Admin: 10/31/19 05:42 Dose: 1,000 mg Propofol (Diprivan Bolus) 20 mg IV Q5MIN PRN PRN Reason: BREAKTHROUGH AGITATION Stop: 11/28/19 17:30 Sodium Chloride (Flush - Normal Saline) 10 ml IVF PRN PRN PRN Reason: Saline Flush Last Admin: 10/27/19 08:06 Dose: 10 ml Vital Signs & Weight: Vital Signs Temp Pulse Resp BP Pulse Ox 10/31/19 06:59 96.8 F L 10/31/19 06:29 62 103/65 10/31/19 06:00 20 10/31/19 04:00 98.4 F 20 10/31/19 03:29 61 10/31/19 02:00 24 H 10/31/19 00:00 22 H 10/30/19 23:00 98.7 F 10/30/19 22:53 67 98/60 10/30/19 22:00 19 10/30/19 20:00 15 94 L Admit Weight 158 lb Weight 161 lb 2.526 oz - Physical Exam General: no apparent distress Neck: no masses, no bruit Cardiac: no murmur, regular rhythm Lungs: normal exam - Labs Result Diagrams: 10/31/19 03:57 10/31/19 03:57 Troponin/CKMB CK-MB (CK-2) 0.6 ng/mL (0-6.6) 10/27/19 23:41 Troponin I 0.047 ng/mL (< 0.028) H 10/29/19 08:26 - Assessment/Plan Assessment/Plan: Respiratory failure Pericarditis Small pericardial effusion HTN Bronchitis Discussed with Dr. Slater and Dr. Hernandez Reviewed CT scan Agree the effusion not well seen on echo Window performed by dr. Hernandez 1 liter of bloody fluid removed Noted mainly superior to the right atrium No other CV changes
[2019-10-31] MEDS ORDERED: Dextrose 50% Abboject 50 ML SYRINGE SLOW IVP PRN (08:37)
--- NOTE | 2019-10-31 08:40 | RAD ---
CHEST ONE VIEW: HISTORY: Respiratory insufficiency. COMPARISON: 10/29/2019 FINDINGS/IMPRESSION: Stable life support tubes. Stable bilateral pleural effusions and bibasilar parenchymal changes with some increased markings in the mid and upper lung zones. No significant new process. Continued short- term followup. POS: [facility]
[2019-10-31] MEDS: Potassium Chloride 20 MEQ TAB PO SCH ×2 (08:41→16:10)
[2019-10-31] MEDS: Atorvastatin Calcium 40 MG TAB PO SCH (08:41)
[2019-10-31] MEDS: Aspirin Chewable 81 MG TAB PO SCH (08:41)
[2019-10-31] MEDS: Folic Acid 1 MG TAB PO SCH (08:41)
[2019-10-31] MEDS: Amiodarone 200 MG TAB PO SCH ×2 (08:41→20:16)
[2019-10-31] MEDS: Famotidine/PF 20 mg/2ml Vial SLOW IVP SCH ×2 (08:42→20:16)
[2019-10-31] MEDS: Insulin Glargine 5 UNITS in Pre-Filled Syringe 1 EACH SC SCH (09:09)
[2019-10-31] MEDS ORDERED: Fentanyl 100 MCG/2 ML VIAL ONE (09:59)
[2019-10-31] MEDS ORDERED: Norepinephrine 4 MG/4 ML VIAL ONE (10:00)
[2019-10-31] MEDS ORDERED: Phenylephrine 10 MG/ML VIAL ONE (10:00)
[2019-10-31] MEDS ORDERED: EPINEPHrine 1 MG/ML AMP ONE (10:07)
[2019-10-31] MEDS ORDERED: Bupivacaine PF 0.5% 30 ML VIAL ONE (10:07)
--- NOTE | 2019-10-31 11:44 | CON ---
DATE OF CONSULTATION: 10/31/2019 HISTORY OF PRESENT ILLNESS: Ms. Berg is intubated in the ICU. She has been found on CT scan and echocardiogram to have a large pleural effusion on the right, which was tapped. She also has a large pericardial effusion with compression of the right atrium on CT scan. Echocardiogram has been equivocal as far as compression or tamponade signs on echo. I have been asked to see her to perform a pericardial window. PAST MEDICAL HISTORY: 1. DVT. 2. Rheumatoid arthritis. 3. History of diastolic dysfunction. 4. Hypertension. PAST SURGICAL HISTORY: Knee surgery and eye surgery. MEDICATIONS: Noted. ALLERGIES: IODINE. REVIEW OF SYSTEMS: Not performed as the patient is on the ventilator. PHYSICAL EXAMINATION: GENERAL: This is a 64-year-old woman, sedated on the ventilator. VITAL SIGNS: Her height is 5 feet 2 inches and weight is 161 pounds, pulse is 77 and regular, and blood pressure is 99/59. LUNGS: Clear bilaterally. HEART: Rhythm is regular with distant heart tones. ABDOMEN: Soft. EXTREMITIES: Mild edema. LABORATORY DATA: Of note, hemoglobin is 10.3. Potassium is 3.7, creatinine is 0.82. ASSESSMENT AND PLAN: Large pericardial effusion with early physiologic tamponade. We will plan for pericardial window as soon as the operating room is available. Job ID: [id number]
[2019-10-31] MEDS ORDERED: Fentanyl 100 MCG/2 ML VIAL SLOW IVP PRN ×2 (12:44)
--- NOTE | 2019-10-31 13:36 | RAD ---
EXAM CHEST ONE VIEW: History: Post sternotomy. Comparison: 10-31-2019, earlier exam. FINDINGS: Recent post underlying sternotomy with NG, endotracheal tube, and multiple chest tubes in place. Ther e are bilateral pleural effusions with some mild vascular congestion. No significant pneumothorax. IMPRESSION: Recent post op sternotomy with NG and endotracheal tube and chest tubes in place. Moderate pleural ef fusions. No significant pneumothorax. POS: [facility]
[2019-10-31 13:44] LABS: Band 13 % (5-11); Burr Cells SLIGHT = 2-5 cells (100X) (0-1/hpf); Hemoglobin 10.3 g/dL (12.0-16.0); Hypochromia SLIGHT = 6-15 cells (100X) (0-5/hpf); Lymphocytes 2 % (21-51); MDiff Complete? YES; Mean Corpuscular HGB CONC 31.1 g/dL (32.0-36.0); Mean Corpuscular Hemoglobin 27.3 pg (27.0-31.0); Mean Corpuscular Volume 87.6 fL (78.0-98.0); Mean Platelet Volume 8.2 fL (7.4-10.4); Monocytes 6 % (0-10); Neutrophil 79 % (42-75); Platelet Count 636 thou/uL (130-400); Platelet Morphology Comment Appears Increased; Polychromasia MODERATE = 3-4 cells (100X) (0-2/hpf); RBC Distribution Width 15.1 % (11.5-14.5); Red Blood Cell (RBC) Count 3.78 mill/uL (4.20-5.40); Target Cells SLIGHT = 2-5 cells (100X) (0-1/hpf); White Blood Cell (WBC) Count 27.9 thou/uL (4.8-10.8)
--- NOTE | 2019-10-31 14:41 | OP ---
DATE OF PROCEDURE: 10/31/2019 PREOPERATIVE DIAGNOSIS: Pericardial effusion with tamponade physiology. POSTOPERATIVE DIAGNOSES: Pericardial effusion with tamponade physiology with bleeding right ventricular wound. PROCEDURES PERFORMED: Subxiphoid pericardial window converted to sternotomy, repair of right ventricular wound, and drainage with pericardial biopsy. ANESTHESIA: General endotracheal with Viri Riojas CRNA. ESTIMATED BLOOD LOSS: 200-it was a 1000 mL of blood within the pericardium on opening along with clot. DESCRIPTION OF PROCEDURE: After consent was obtained, the patient was brought to the operating room and placed in supine position on the operating table. The chest was prepped and draped in usual sterile fashion. Skin incision was made over the xiphoid. Dissection down subxiphoid was obtained with electrocautery. Pericardium was isolated and clamped with an Allis clamp. Sharp dissection with #10 blade was used to open the pericardium. On opening the pericardium, there was significant amount of dark blood that was evacuated. Once the blood was evacuated, it was clear that there was pumping of blood within the pericardium that I could not visualize. A median sternotomy was then performed. Sternum was spread with Kel retractor. Pericardium was opened more superiorly. There was a significant amount of adhesion and inflammation within the pericardium. The area of right ventricular rupture was noted and repaired with two 4-0 Prolene pledgeted sutures. Once hemostasis had been obtained, the pericardium was copiously irrigated. As much of inflammatory debris, this could be debrided was debrided. The debris and fluid were sent for culture including AFB. A piece of pericardium was sent for routine pathologic exam. Fluid was also sent for cytology. Once hemostasis had been obtained, two 24-Azerbaijani drains were placed within the pericardium. Sternum was closed with #5 wire. Vancomycin paste was placed on the sternal edges and wires twisted and buried. Wounds were then irrigated, closed in layers, and Dermabond applied to skin. The patient tolerated the procedure well and was transferred to the intensive care unit in stable condition. Job ID: [id number]
--- NOTE | 2019-10-31 14:43 | PRG ---
DATE OF SERVICE: 10/31/2019 SUBJECTIVE: Kari Berg remains hemodynamically stable overnight. OBJECTIVE: VITAL SIGNS: She is afebrile. Respiratory rate is in the teens. Heart rates in the 60s to 70s. LUNGS: Clear anteriorly. HEART: Regular rhythm. ABDOMEN: Soft. EXTREMITIES: Without asymmetry. LABORATORY DATA: White count 13.7, hemoglobin 10.3, platelets 383. Sodium 137, potassium 3.7, chloride 106, bicarb 22, BUN 21, creatinine 0.82. I reviewed her chest CT on presentation and her abdominal CT after I intubated her. I felt that she had a very large pericardial effusion that was confined to her right chest. I would explain why this was not picked up on two echocardiograms. I asked Dr. Varela to review with me and consulted Cardiothoracic Surgery to review it. Subsequently, she was taken for a pericardial window. Dr. Hernandez just contacted me and informed me that she had 1 L of blood in her pericardium. Once that was evacuated, she had pulsatile bleeding out of her right ventricle. She ended up with a sternotomy and over-sewing of her right ventricle. Pericardial tissue was sent for AFB and fungus. I have seen histoplasma in patients with rheumatoid arthritis lead to a bowel perforation in the past about myocardial perforation with tuberculosis. I would wonder if this is some manifestation of histoplasma. Her admission notes do not report her being on any immunosuppressive drugs. I supposed this could be a malignant process, but Dr. Hernandez said this would appear to be more of an exudative inflammatory process. Given that she is anticoagulated, it is amazing that she get to the hospital. Obviously, she will remain mechanically ventilated overnight and we will reassess her. Critical care time 35 min. Job ID: [id number] MTDD
[2019-10-31] MEDS ORDERED: Vecuronium 10 MG VIAL ONE (15:24)
[2019-10-31] MEDS ORDERED: EPHEDRINE 25 MG/5 ML SYRINGE ONE (15:24)
[2019-10-31] MEDS ORDERED: Glycopyrrolate 0.2 MG/ML 5 ML SYRINGE ONE (15:24)
[2019-10-31] MEDS ORDERED: Rocuronium Bromide 10 MG/ML (10ML VIAL) ONE (15:24)
[2019-10-31] MEDS ORDERED: Lidocaine 1% PF 5 ML VIAL ONE (15:24)
[2019-10-31] MEDS: HumaLOG 300 UNITS/3 ML VIAL SC PRN (16:10)
[2019-11-01] MEDS: Lorazepam 2 MG/ML VIAL SLOW IVP PRN
[2019-11-01] MEDS: HumaLOG 300 UNITS/3 ML VIAL SC PRN ×5 (00:01→23:09)
[2019-11-01] MEDS: Piperacillin/Tazobactam 4.5 GM in Sodium Chloride 0.9% 100 ML IVPB SCH ×4 (01:40→20:57)
[2019-11-01] MEDS: methylPREDNISolone Sod Succ 40 MG VIAL IVP SCH ×4 (05:11→16:41)
--- NOTE | 2019-11-01 06:13 | PDOC.FM ---
- Subjective Subjective: Patient was sedated with Propafol at 8.7 and intubated. She was A&Ox0 and did not respond to pain. Per Nursing, patient did not experience any acute overnight events. - Objective Vital Signs & Weight: Vital Signs (12 hours) Temp Pulse Resp BP Pulse Ox 11/01/19 04:00 26 H 11/01/19 03:41 78 11/01/19 03:00 98.8 F 11/01/19 02:00 26 H 11/01/19 01:43 79 93/71 11/01/19 00:00 27 H 10/31/19 23:00 98.6 F 10/31/19 22:00 24 H 10/31/19 20:00 24 H 98 10/31/19 19:57 92 L 10/31/19 19:54 96 10/31/19 19:00 98.6 F Weight Admit Weight 71.668 kg Weight 71.6 kg Most Recent Monitor Data Heart Rate from ECG 75 NIBP 87/61 NIBP BP-Mean 69 Respiration from ECG 32 SpO2 100 I&O: 10/30/19 10/31/19 11/01/19 06:59 06:59 06:59 Intake Total 1365.9 1295.7 2356 Output Total 895 2175 1195 Balance 470.9 -879.3 1161 Result Diagrams: 11/01/19 07:10 11/01/19 07:10 Phys Exam - Physical Examination Constitutional: NAD HEENT: oral pharynx no lesions Respiratory: no wheezing, no rales Course breath sounds bilaterally Cardiovascular: RRR, no significant murmur Mild friction rub - likely 2/2 to recent sternotomy Gastrointestinal: soft, non-tender, no distention, positive bowel sounds Musculoskeletal: no edema, pulses present Neurological: non-focal See Subjective Skin: no rash Deviation from normal: No erythema or drainage at sternotomy site Dx/Plan (1) CHF (congestive heart failure) Code(s): I50.9 - HEART FAILURE, UNSPECIFIED Status: Acute (2) HLD (hyperlipidemia) Code(s): E78.5 - HYPERLIPIDEMIA, UNSPECIFIED Status: Acute (3) HTN (hypertension) Code(s): I10 - ESSENTIAL (PRIMARY) HYPERTENSION Status: Acute (4) Pericardial effusion Code(s): I31.3 - PERICARDIAL EFFUSION (NONINFLAMMATORY) Status: Acute (5) Acute respiratory failure with hypoxia Code(s): J96.01 - ACUTE RESPIRATORY FAILURE WITH HYPOXIA Status: Acute - Plan Plan: Patient is a 64 y/o female who presented to the ED for evaluation of SOB. 1. Acute Hypoxic Respiratory Failure, likely 2/2 to Pericardial/Pleural Effusions -Currently intubated in the ICU following progression of supplemental O2 from Nasal Cannula to High Flow Nasal Cannula to BiPap -Pleural/Pericardial Effusions Verified on CTA -Echo: Mild Pericardial Effusion, EF(50-55%), Diastolic Dysfunction 1/3 -Cardiology: Consulted, no evidence of Cardiac Tamponade - will continue to gently diures while monitoring BP -Initial EKG: No ST-Segment Elevation -Trops: Indeterminate range (0.061 >> 0.039) -Received ASA, Ceftriaxone and Levofloxacin in ED -TSH: 1.03 -Repeat CXR: Improving Pericardial/Pleural Effusions -Repeat Echo: Pending -ABG: Resolving Respiratory Alkalosis -D-Dimer: 6.98 -Ferritin: 1145 -LDH: 424 -CRP: 17.65 -Procal: 1.1 -RVP: NAF -TERRY Panel: Pending -s/p Thoracentesis w/ exudative fluid based on Light's Criteria - many WBCs, RBCs present - DDx includes ARDS, Empyema, Autoimmune Dysfunction, Malignancy -Pleural Fluid Culture: Pending -s/p Pericardial Window w/ conversion to Sternotomy - 1L bloody fluid drained from pericardium w/ pulsatile bleed noted from right ventricle - sutured, irrigated and closed w/ biopsies and cultures taken for further analysis -Will continue to coordinate w/ CVSurg, Cards, and Pulm - recs appreciated 2. A-Fib vs. A-Flutter, resolved -Per Resident Night Team, patient had episode of elevated HR in the 200s on 10/26 -s/p Adenosine 6mg, 12 mg, w/ decrease in HR to 180s -Follow-up EKG: A-Fib vs. A-Flutter -Follow-up Trops: Indeterminate Range (0.042, 0.051) -Started on Diltiazem gtt, with Amiodarone gtt added per Cardiology recs -DC'd since transfer to ICU based on NSR and stable BPs 3. Elevated troponin, ACS R/o -Likely 2/2 demand ischemia -Risk Factors: HTN, HLD, Rheumatoid Arthritis -HEART Score: 3 -Multiple EKGs show now signs of ST-Segment changes -See #1 4. Fever -T(101.7) and T(100.4) on 10/28 -s/p Levofloxacin and Ceftriaxone in ED, previously on Azithromycin prior to presenting to ED -VSS w/o elevated WBCs on initial evaluation, however patient documented 2 fevers since hospitalization and most recent WBC(27.9) on 10/31 -Started on Augmentin, per Cardiology recs - DC'd based on FOUO -Currently on Vanc and Zosyn after overnight fever of 101.7 on 10/28 - adequate broad-spectrum coverage initiated w/ no additional elevated temps records -Investigating other infectious, autoimmune etiologies -UA: Leukocytes, Blood, WBCs, Ketones -UCx: Unremarkable -No documented fevers for > 48H 5. Hyperglycemia -Likely 2/2 steroid use - no documented Hx of DM -Q6H Accuchecks -Lantus 5u QAM - will likely increase to 10u this AM -Moderate SSI -Hypoglycemia Protocol 6. Dyspnea -No evidence of PE on CTA - likely 2/2 to #1 -COVID-19 Testing performed on 10/21 - reported as negative - will consider retesting -VSS w/ CTAB -PRN Albuterol, supplemental O2 -Transferred to IMCU for High Flow Nasal Cannula / BiPap - now intubated in ICU - will continue to monitor O2Sats closely -Investigating possible infectious etiologies due to overnight fever -UCx/BCx: Unremarkable -Vanc and Zosyn -Will attempt breathing trials when tolerated by patient -See #1 7. HTN -Currently stable, with BPs in the lower range of normal -Diltiazem and Amiodarone gtt - DC'd 8. HLD -Will continue patient's home medication regimen 9. Rheumatoid Arthritis -Not currently on DMARD -Patient has follow-up for this at the end of the month outpatient -TERRY Panel: Pending -Will consider possible autoimmune causes for exudative pleural effusions as per above - results pending 10. CHF -Diagnosed in September 2019 - no reported ECHO - started on Furosemide, Potassium at that time -Previously on Metoprolol, Statin, ASA - will continue -BNP mildly elevated on presentation, no evidence of fluid overload on physical exam -TTE: See Above -Strict I/Os 9. Hx of DVTs -CTA ruled out PE -Previously on Xarelto 20 mg PO daily - will hold based on Pulm recs PCP: VIOLETTE ([place], [place]) Code: Full Code Diet: Tube Feedings, Managed by Dietary DVT PPx: SCDs - Currently Holding Home Xarelto, per Pulm Recs GI PPx: Famotidine Dispo: Patient's condition is guarded and she is intubated in the ICU for ongoing evaluation of Acute Hypoxic Respiratory Failure, likely 2/2 to Pericardial/Pleural Effusions, exacerbated by recent episode of A-Fib vs. A- Flutter, s/p Pericardial Window w/ conversion to Sternotomy. CVSurg, Cardiology and Pulm consulted, recs appreciated. Will continue broad-spectrum ABx and steroids while awaiting additional lab studies and biopsy results as per above. Increase Lantus to 10u SC QAM in order to gain better blood glucose control while on steroid regimen in order to meet target Blood Glucose of 140 -180. Expected LOS > 48H. Addendum - Attending - Attending Attestation Date/Time: 11/01/19 1251 I personally evaluated the patient and discussed the management with Dr. Boudreaux. I agree with the History, Examination, Assessment and Plan documented above with any addition or exceptions noted below. Patient critically ill but stable. She has very complicated disease process at this time. Tampenade from RV rupture s/p pericardial window and oversew by CV surgery. Cultures and biopsies of those tissues as well as pleural effusion fluid pending. Cardiology, Pulm, and CV surgery on board. Awaiting labs. Continue current mgmt, but may need ID on board pending culture results.
[2019-11-01] MEDS: Propofol 1,000 MG/100 ML VIAL IV PRN ×3 (06:15→20:57)
[2019-11-01 06:50] LABS: Actual Bicarbonate (HCO3a) 24.5 mEq/L (22-28); Base Excess (BEa) 1.6 mEq/L (-2.0 to +3.0); CO2 Tension 31.3 mmHg (35.0-45.0); Carboxyhemoglobin (COHb) 1.3 gm% (0.0-3.0); Hemoglobin (Hb) 7.6 g/dL (12.0-16.0); O2 Tension (PaO2), arterial 82.5 mmHg (> 80.0); pH, Arterial 7.51 (7.35-7.45)
[2019-11-01 06:54] LABS: ALV-art Gradient 234.875 (0-20); Puncture Site RRA
[2019-11-01 07:39] LABS: Anion Gap 14 mmol/L (10-20); BUN (Urea Nitrogen) 28 mg/dL (9.8-20.1); Calc. Creatinine Clearance 85 mL/min (70-130); Calcium 7.8 mg/dL (7.8-10.44); Carbon Dioxide 22 mmol/L (23-31); Chloride 110 mmol/L (98-107); Estimated GFR-MDRD 75; Glucose 210 mg/dL (80-115); Sodium 142 mmol/L (136-145)
[2019-11-01] MEDS: Potassium Chloride 20 MEQ TAB PO SCH ×2 (08:47→16:41)
[2019-11-01] MEDS: Insulin Glargine 5 UNITS in Pre-Filled Syringe 1 EACH SC SCH (08:47)
[2019-11-01] MEDS: Amiodarone 200 MG TAB PO SCH ×2 (08:48→20:56)
[2019-11-01] MEDS: Aspirin Chewable 81 MG TAB PO SCH (08:48)
[2019-11-01] MEDS: Folic Acid 1 MG TAB PO SCH (08:48)
[2019-11-01] MEDS: Atorvastatin Calcium 40 MG TAB PO SCH (08:48)
[2019-11-01] MEDS: Famotidine/PF 20 mg/2ml Vial SLOW IVP SCH ×2 (08:48→20:57)
[2019-11-01] MEDS ORDERED: Insulin Glargine 10 UNITS in Pre-Filled Syringe 1 EACH SC SCH (09:00)
[2019-11-01 09:13] LABS: #Eosinphils 0.1 thou/uL (0.0-0.7); #Lymphocytes 0.9 thou/uL (1.20-3.40); #Monocytes 0.9 thou/uL (0.11-0.59); #Neutrophils 9.5 thou/uL (1.40-6.50); %Basophils 0.4 % (0.0-1.0); %Eosinophils 0.7 % (0.0-10.0); %Lymphocytes 7.9 % (21.0-51.0); %Monocytes 7.8 % (0.0-10.0); %Neutrophils 83.2 % (42.0-75.0); Hemoglobin 8.5 g/dL (12.0-16.0); Mean Corpuscular HGB CONC 32.8 g/dL (32.0-36.0); Mean Corpuscular Hemoglobin 28.9 pg (27.0-31.0); Mean Corpuscular Volume 88.1 fL (78.0-98.0); Mean Platelet Volume 8.4 fL (7.4-10.4); Platelet Count 411 thou/uL (130-400); RBC Distribution Width 15.3 % (11.5-14.5); Red Blood Cell (RBC) Count 2.95 mill/uL (4.20-5.40); White Blood Cell (WBC) Count 11.5 thou/uL (4.8-10.8)
--- NOTE | 2019-11-01 11:35 | PRG ---
DATE OF SERVICE: 11/01/2019 A 35 minutes of critical care time. SUBJECTIVE: The patient remains intubated, mechanical ventilation. She is very sedated on propofol. I cannot tell that she has been let up from that at all. OBJECTIVE: VITAL SIGNS: Her temperature is 98.9, pulse 81, pressure 90/60, and O2 saturation 97%. Twenty-four intake 2356 and output 1225. HEENT: Unremarkable. NECK: No JVD. LUNGS: Clear anteriorly. CARDIAC: S1 and S2. Regular. She has two mediastinal tubes in place. ABDOMEN: Soft, obese, and nontender. EXTREMITIES: No edema. LABORATORY DATA: Micro data show only coag-negative staph from 10/24. A pH of 7.51, pCO2 of 31, and pO2 of 82 on SIMV rate of 12, tidal volume 400, PEEP 8, pressure support 12, and FiO2 of 50%. Sodium 142, potassium 4, chloride 110, CO2 of 22, BUN 28, creatinine 0.7, and glucose 210. ASSESSMENT: 1. Status post evacuation of pericardial effusion with subsequent repair of a hole in her right ventricle that seemed to have been spontaneous. 2. Respiratory failure requiring mechanical ventilation. PLAN: We will try her on spontaneous breathing, let up the sedation and see how she looks. Continue antibiotics. Discussed with family at bedside. Job ID: [id number]
[2019-11-01] MEDS: Vancomycin 1 GM in Premix Bag 1 BAG IVPB SCH ×2 (13:29)
[2019-11-02] MEDS: methylPREDNISolone Sod Succ 40 MG VIAL IVP SCH ×5 (00:31→23:39)
[2019-11-02] MEDS: Vancomycin 1 GM in Premix Bag 1 BAG IVPB SCH ×2 (00:31→13:22)
[2019-11-02] MEDS: Piperacillin/Tazobactam 4.5 GM in Sodium Chloride 0.9% 100 ML IVPB SCH ×4 (02:27→19:55)
[2019-11-02] MEDS: HumaLOG 300 UNITS/3 ML VIAL SC PRN ×4 (04:56→22:10)
[2019-11-02] MEDS: Propofol 1,000 MG/100 ML VIAL IV PRN ×2 (05:09→17:53)
--- NOTE | 2019-11-02 05:12 | PDOC.FM ---
- Subjective Subjective: Patient was sedated and intubated at the time of evaluation - A&O x3 and in no acute respiratory distress. - Objective Vital Signs & Weight: Vital Signs (12 hours) Temp Pulse Resp Pulse Ox 11/02/19 04:00 98.2 F 27 H 11/02/19 03:06 81 11/02/19 02:00 28 H 11/02/19 00:44 81 11/02/19 00:00 98.2 F 29 H 11/01/19 22:14 80 11/01/19 22:00 22 H 11/01/19 20:00 98.4 F 20 98 11/01/19 18:45 72 11/01/19 17:55 21 H Weight Admit Weight 71.668 kg Weight 71.6 kg Most Recent Monitor Data Heart Rate from ECG 81 NIBP 125/80 NIBP BP-Mean 95 Respiration from ECG 19 SpO2 94 I&O: 10/31/19 11/01/19 11/02/19 06:59 06:59 06:59 Intake Total 1295.7 2356 1659 Output Total 2175 1225 1100 Balance -879.3 1131 559 Result Diagrams: 11/02/19 05:54 11/02/19 05:54 Phys Exam - Physical Examination Constitutional: NAD HEENT: oral pharynx no lesions Respiratory: no wheezing, no rales Course breath sounds Cardiovascular: RRR, no significant murmur, no rub Gastrointestinal: soft, non-tender, no distention, positive bowel sounds Musculoskeletal: no edema, pulses present Neurological: non-focal Skin: no rash Dx/Plan (1) CHF (congestive heart failure) Code(s): I50.9 - HEART FAILURE, UNSPECIFIED Status: Acute (2) HLD (hyperlipidemia) Code(s): E78.5 - HYPERLIPIDEMIA, UNSPECIFIED Status: Acute (3) HTN (hypertension) Code(s): I10 - ESSENTIAL (PRIMARY) HYPERTENSION Status: Acute (4) Pericardial effusion Code(s): I31.3 - PERICARDIAL EFFUSION (NONINFLAMMATORY) Status: Acute (5) Acute respiratory failure with hypoxia Code(s): J96.01 - ACUTE RESPIRATORY FAILURE WITH HYPOXIA Status: Acute - Plan Plan: Patient is a 64 y/o female who presented to the ED for evaluation of SOB. 1. Acute Hypoxic Respiratory Failure, likely 2/2 to Pericardial/Pleural Effusions -Currently intubated in the ICU following progression of supplemental O2 from Nasal Cannula to High Flow Nasal Cannula to BiPap -Pleural/Pericardial Effusions Verified on CTA -Echo: Mild Pericardial Effusion, EF(50-55%), Diastolic Dysfunction 1/3 -Cardiology: Consulted, no evidence of Cardiac Tamponade - advised to gently diures while monitoring BP -Initial EKG: No ST-Segment Elevation -Trops: Indeterminate range (0.061 >> 0.039) -Received ASA, Ceftriaxone and Levofloxacin in ED -TSH: 1.03 -Repeat CXR: Improving Pericardial/Pleural Effusions -Repeat Echo: Pending -ABG: Resolving Respiratory Alkalosis -D-Dimer: 6.98 -Ferritin: 1145 -LDH: 424 -CRP: 17.65 -Procal: 1.1 -RVP: NAF -TERRY Panel: Pending -s/p Thoracentesis w/ exudative fluid based on Light's Criteria - many WBCs, RBCs present - DDx includes ARDS, Empyema, Autoimmune Dysfunction, Malignancy -Pleural Fluid Culture: Pending -s/p Pericardial Window w/ conversion to Sternotomy - 1L bloody fluid drained from pericardium w/ pulsatile bleed noted from right ventricle - sutured, irrigated and closed w/ biopsies and cultures taken for further analysis -Fungal Studies: Pending -Quant TB: Pending -Per Pulm recs, will reduce sedation and attempt to wean from ventilator -Will continue to coordinate w/ CVSurg, Cards, and Pulm - recs appreciated 2. A-Fib vs. A-Flutter, resolved -Per Resident Night Team, patient had episode of elevated HR in the 200s on 10/26 -s/p Adenosine 6mg, 12 mg, w/ decrease in HR to 180s -Follow-up EKG: A-Fib vs. A-Flutter -Follow-up Trops: Indeterminate Range (0.042, 0.051) -Started on Diltiazem gtt, with Amiodarone gtt added per Cardiology recs -DC'd since transfer to ICU based on NSR and stable BPs 3. Elevated troponin, ACS R/o -Likely 2/2 demand ischemia -Risk Factors: HTN, HLD, Rheumatoid Arthritis -HEART Score: 3 -Multiple EKGs show now signs of ST-Segment changes -See #1 4. Fever -T(101.7) and T(100.4) on 10/28 -s/p Levofloxacin and Ceftriaxone in ED, previously on Azithromycin prior to presenting to ED -VSS w/o elevated WBCs on initial evaluation, however patient documented 2 fevers since hospitalization and most recent WBC(27.9) on 10/31 -Started on Augmentin, per Cardiology recs - DC'd based on FOUO -Currently on Vanc and Zosyn after overnight fever of 101.7 on 10/28 - adequate broad-spectrum coverage initiated w/ no additional elevated temps records -Investigating other infectious, autoimmune etiologies -UA: Leukocytes, Blood, WBCs, Ketones -UCx: Unremarkable -No documented fevers for > 48H 5. Hyperglycemia -Likely 2/2 steroid use - no documented Hx of DM -Q6H Accuchecks -Lantus 5u QAM - will likely increase to 10u this AM -Moderate SSI -Hypoglycemia Protocol 6. Dyspnea -No evidence of PE on CTA - likely 2/2 to #1 -COVID-19 Testing performed on 10/21 - reported as negative - will consider retesting -VSS w/ CTAB -PRN Albuterol, supplemental O2 -Transferred to IMCU for High Flow Nasal Cannula / BiPap - now intubated in ICU - will attempt to wean as per above -Investigating possible infectious etiologies due to overnight fever -UCx/BCx: Unremarkable -Vanc 1 g Q12H, Zosyn 4.5 g Q6H -See #1 7. HTN -Currently stable -Diltiazem and Amiodarone gtt - DC'd 8. HLD -Will continue patient's home medication regimen 9. Rheumatoid Arthritis -Not currently on DMARD -Patient has follow-up for this at the end of the month outpatient -TERRY Panel: Pending -Will consider possible autoimmune causes for exudative pleural effusions as per above - results pending 10. CHF -Diagnosed in September 2019 - no reported ECHO - started on Furosemide, Potassium at that time -Previously on Metoprolol, Statin, ASA - will continue -BNP mildly elevated on presentation, no evidence of fluid overload on physical exam -TTE: See Above -Strict I/Os 9. Hx of DVTs -CTA ruled out PE -Previously on Xarelto 20 mg PO daily - will hold based on Pulm recs PCP: VIOLETTE ([place], [place]) Code: Full Code Diet: Tube Feedings, Managed by Dietary DVT PPx: SCDs - Currently Holding Home Xarelto, per Pulm Recs GI PPx: Famotidine Dispo: Patient's condition is guarded and she is intubated in the ICU for ongoing evaluation of Acute Hypoxic Respiratory Failure, likely 2/2 to Pericardial/Pleural Effusions, with now-corrected right ventricular free wall defect. CVSurg, Cardiology and Pulm consulted, recs appreciated. Will attempt to wean from ventilator and continue broad-spectrum ABx, steroids while awaiting additional lab studies and biopsy results as per above. Expected LOS > 48H. Addendum - Attending - Attending Attestation Date/Time: 11/02/19 4736 I personally evaluated the patient and discussed the management with Dr. Boudreaux. I agree with the History, Examination, Assessment and Plan documented above with any addition or exceptions noted below. Patient critically ill but stable. Continues with SBT and possible extubation if she is not agitated off sedation. Pulm on board. Continue to await cultures and biopsy report. Continue antibiotics.
[2019-11-02] MEDS ORDERED: Furosemide 40 MG/4 ML VIAL SLOW IVP SCH (06:15)
[2019-11-02 06:37] LABS: Hemoglobin 8.5 g/dL (12.0-16.0); Mean Corpuscular HGB CONC 32.7 g/dL (32.0-36.0); Mean Corpuscular Hemoglobin 28.5 pg (27.0-31.0); Mean Corpuscular Volume 87.1 fL (78.0-98.0); Mean Platelet Volume 8.1 fL (7.4-10.4); Platelet Count 454 thou/uL (130-400); RBC Distribution Width 15.3 % (11.5-14.5); Red Blood Cell (RBC) Count 2.98 mill/uL (4.20-5.40); White Blood Cell (WBC) Count 17.7 thou/uL (4.8-10.8)
[2019-11-02 06:40] LABS: Anion Gap 14 mmol/L (10-20); BUN (Urea Nitrogen) 26 mg/dL (9.8-20.1); Calc. Creatinine Clearance 89 mL/min (70-130); Calcium 7.6 mg/dL (7.8-10.44); Carbon Dioxide 23 mmol/L (23-31); Chloride 111 mmol/L (98-107); Estimated GFR-MDRD 80; Glucose 178 mg/dL (80-115); Potassium 4.6 mmol/L (3.5-5.1); Sodium 143 mmol/L (136-145)
[2019-11-02 07:06] LABS: Actual Bicarbonate (HCO3a) 23.8 mEq/L (22-28); CO2 Tension 29.7 mmHg (35.0-45.0); Calcium, Ionized 1.08 mmol/L (1.12-1.30); Carboxyhemoglobin (COHb) 1.5 gm% (0.0-3.0); Hemoglobin (Hb) 6.8 g/dL (12.0-16.0); O2 Tension (PaO2), arterial 66.9 mmHg (> 80.0); Potassium - ABG Lab 4.31 mmol/L (3.70-5.30); pH, Arterial 7.52 (7.35-7.45)
[2019-11-02 07:18] LABS: Band 7 % (5-11); Lymphocytes 6 % (21-51); MDiff Complete? YES; Metamyelocyte 1 % (0-0); Monocytes 2 % (0-10); Myelocyte 2 % (0-0); Neutrophil 82 % (42-75); Platelet Morphology Comment Appears Increased; Polychromasia SLIGHT = 2-3 cells (100X) (0-2/hpf)
[2019-11-02 07:19] LABS: ALV-art Gradient 181.175 (0-20); Puncture Site RRA
[2019-11-02] MEDS: Atorvastatin Calcium 40 MG TAB PO SCH (08:45)
[2019-11-02] MEDS: Folic Acid 1 MG TAB PO SCH (08:45)
[2019-11-02] MEDS: Potassium Chloride 20 MEQ TAB PO SCH ×2 (08:45→17:53)
[2019-11-02] MEDS: Amiodarone 200 MG TAB PO SCH ×2 (08:46→20:16)
[2019-11-02] MEDS: Aspirin Chewable 81 MG TAB PO SCH (08:46)
[2019-11-02] MEDS: Famotidine/PF 20 mg/2ml Vial SLOW IVP SCH ×2 (08:46→20:16)
[2019-11-02] MEDS: Insulin Glargine 10 UNITS in Pre-Filled Syringe 1 EACH SC SCH (08:49)
--- NOTE | 2019-11-02 09:18 | RAD ---
SINGLE VIEW OF THE CHEST: COMPARISON: 10/31/2019. HISTORY: Pneumonia. FINDINGS: A single view of the chest shows an enlarged but stable cardiomediastinal silhouette. The patient is status post sternotomy. The lines and tubes are unchanged in position. There are small to moderate bilateral pleural effusions with adjacent atelectasis. IMPRESSION: Stable exam. POS: [facility]
[2019-11-02 12:26] LABS: Vancomycin, Trough 19.7 ug/mL
--- NOTE | 2019-11-02 14:37 | PQF ---
CLINICAL DOCUMENTATION IMPROVEMENT CLARIFICATION FORM: ICD-10 Updated PLEASE DO AN ADDENDUM TO THE PROGRESS NOTE WITH ANY DOCUMENTATION UPDATES OR ADDITIONS AND CARRY THROUGH TO DC SUMMARY. THANK YOU. DATE: 11/02/2019 ATTN: Dr. Boudreaux/ Attending Dr. Orozco Please exercise your independent, professional judgment in responding to the clarification form. Clinical indicators are provided on the bottom of this form for your review Please check appropriate box(s): HEART FAILURE: A. ACUITY [ ] Acute [ ] Acute on Chronic [ X ] Chronic B. TYPE [ ] Systolic / HFrEF [ ] Diastolic / HFpEF [ ] Combined Systolic / Diastolic [ ] Other diagnosis [ X ] Unable to determine In addition, please specify: Present on Admission (POA): [ X ] Yes [ ] No [ ] Unable to determine For continuity of documentation, please document condition throughout progress notes and discharge summary. Thank You. CLINICAL INDICATORS - SIGNS / SYMPTOMS / LABS / RESULTS AND LOCATION IN EMR 10/26 (Kanika) CHF, unknown type. - Diagnosed in September 2019 - no reported ECHO - BNP mildly elevated on presentation, no evidence of fluid overload on PE 10/28 (Nohemy) Bilateral exudative effusions Preserved left ventricular ejection fraction by echocardiogram Hx of diastolic dysfunction 11/01 (Kanika) Echo: Mild pericardial Effusion, EF (50--55%) Diastolic Dysfunction 06/11 Dispo: ongoing evaluation of Acute hypoxic Respiratory Failure, likely 2/2 Pericardial/ Pleural Effusions, with now corrected r ventricular free wall defect. RISKS: H&P 10/24: HTN. Rheumatoid arthritis, CHF, unknown type. 10/26 () 64 yo admitted for evaluation of pericardial effusion and pleural effusion. TREATMENT: Cardiology Consult 10/25 10/26 (Kanika) Strict I/Os Order 10/25-10/27: Lasix 20 mg IVP daily Order 10/28- 10/30: Lasix 40 mg IVP 0600, 1400 Order 11/01: Lasix 40 mg IVP now Thank you, Tuyet (This form is maintained as a part of the permanent medical record) 2014 [employer]. All Rights Reserved Tuyet Foreman RN, BSN [email or web address] [facility]
[2019-11-02 17:48] LABS: ANA Symphony (Qualitative) Negative (Negative); ANA Symphony (Quantitative) 0.2 Ratio (< 0.7 Negative); dsDNA IgG Antibody Less than 0.5 IU/mL (<10 Negative)
--- NOTE | 2019-11-02 18:10 | PRG ---
DATE OF SERVICE: 11/02/2019 SUBJECTIVE: Ms. Berg was able to interact with me this morning. OBJECTIVE: VITAL SIGNS: She is afebrile. Heart rate is in 70s, blood pressure 100/65, respiratory rate is per mechanical ventilation. LUNGS: Clear. HEART: Regular rhythm. ABDOMEN: Soft. EXTREMITIES: Without edema. DIAGNOSTIC STUDIES: Chest x-ray is unchanged. Pericardial biopsies are pending. Bacterial cultures so far show no organisms on Gram stain and no growth at 48 hours. Acid-fast smears are negative. There is no report of a fungus smear yet. IMPRESSION: Spontaneous rupture of the right ventricle leading to bloody pericardial effusion that tamponaded until the window was performed. She apparently was not on any injectable immunosuppressive drugs prior to admission to the hospital when I asked her today. We will continue to slowly decrease ventilatory support. She appears to be stable. Critical care time 35 min. Job ID: [id number] MTDD
[2019-11-03] MEDS: Vancomycin 1 GM in Premix Bag 1 BAG IVPB SCH ×2 (00:58→12:59)
[2019-11-03] MEDS: Piperacillin/Tazobactam 4.5 GM in Sodium Chloride 0.9% 100 ML IVPB SCH ×4 (02:54→19:01)
[2019-11-03 04:14] LABS: Anion Gap 13 mmol/L (10-20); BUN (Urea Nitrogen) 30 mg/dL (9.8-20.1); Calc. Creatinine Clearance 87 mL/min (70-130); Calcium 7.5 mg/dL (7.8-10.44); Carbon Dioxide 25 mmol/L (23-31); Chloride 109 mmol/L (98-107); Estimated GFR-MDRD 77; Glucose 206 mg/dL (80-115); Potassium 5.1 mmol/L (3.5-5.1); Sodium 142 mmol/L (136-145)
[2019-11-03 05:38] LABS: Band 12 % (5-11); Hemoglobin 8.3 g/dL (12.0-16.0); Lymphocytes 11 % (21-51); MDiff Complete? YES; Mean Corpuscular HGB CONC 31.8 g/dL (32.0-36.0); Mean Corpuscular Hemoglobin 27.8 pg (27.0-31.0); Mean Corpuscular Volume 87.5 fL (78.0-98.0); Mean Platelet Volume 8.3 fL (7.4-10.4); Monocytes 2 % (0-10); Neutrophil 75 % (42-75); Platelet Count 487 thou/uL (130-400); RBC Distribution Width 15.7 % (11.5-14.5); Red Blood Cell (RBC) Count 2.99 mill/uL (4.20-5.40); White Blood Cell (WBC) Count 23.3 thou/uL (4.8-10.8)
[2019-11-03] MEDS: methylPREDNISolone Sod Succ 40 MG VIAL IVP SCH ×2 (05:40→08:31)
[2019-11-03] MEDS: HumaLOG 300 UNITS/3 ML VIAL SC PRN ×3 (05:53→15:46)
[2019-11-03] MEDS: Propofol 1,000 MG/100 ML VIAL IV PRN (05:55)
--- NOTE | 2019-11-03 06:47 | PDOC.FM ---
- Subjective Subjective: Patient was awake and intubated at the time of evaluation. Patient was able to respond to simple commands and did not appear to be in any acute distress. Per Nursing, there were not acute overnight events. - Objective Vital Signs & Weight: Vital Signs (12 hours) Temp Pulse Resp BP Pulse Ox 11/03/19 06:00 14 11/03/19 04:00 98.5 F 14 11/03/19 02:07 72 111/75 11/03/19 02:00 14 11/03/19 00:00 98.5 F 13 11/02/19 22:10 82 115/68 11/02/19 22:00 14 11/02/19 20:00 98.6 F 18 98 Weight Admit Weight 71.668 kg Weight 71.6 kg Most Recent Monitor Data Heart Rate from ECG 75 NIBP 116/71 NIBP BP-Mean 86 Respiration from ECG 12 SpO2 98 I&O: 11/01/19 11/02/19 11/03/19 06:59 06:59 06:59 Intake Total 2356 2274 2559.5 Output Total 1225 1170 2727 Balance 1131 1104 -167.5 Result Diagrams: 11/03/19 03:27 11/03/19 03:27 Phys Exam - Physical Examination Constitutional: NAD HEENT: moist MMs, sclera anicteric, oral pharynx no lesions Neck: supple Respiratory: no wheezing, no rales Course breath sounds Cardiovascular: RRR, no significant murmur, no rub Gastrointestinal: soft, non-tender, no distention, positive bowel sounds Musculoskeletal: no edema, pulses present Neurological: non-focal Able to squeeze both hands Skin: no rash Dx/Plan (1) CHF (congestive heart failure) Code(s): I50.9 - HEART FAILURE, UNSPECIFIED Status: Acute (2) HLD (hyperlipidemia) Code(s): E78.5 - HYPERLIPIDEMIA, UNSPECIFIED Status: Acute (3) HTN (hypertension) Code(s): I10 - ESSENTIAL (PRIMARY) HYPERTENSION Status: Acute (4) Pericardial effusion Code(s): I31.3 - PERICARDIAL EFFUSION (NONINFLAMMATORY) Status: Acute (5) Acute respiratory failure with hypoxia Code(s): J96.01 - ACUTE RESPIRATORY FAILURE WITH HYPOXIA Status: Acute - Plan Plan: Patient is a 64 y/o female who presented to the ED for evaluation of SOB. 1. Acute Hypoxic Respiratory Failure, likely 2/2 to Pericardial/Pleural Effusions -Currently intubated in the ICU following progression of supplemental O2 from Nasal Cannula to High Flow Nasal Cannula to BiPap -Pleural/Pericardial Effusions Verified on CTA -Echo: Mild Pericardial Effusion, EF(50-55%), Diastolic Dysfunction 1/3 -Cardiology: Consulted, no evidence of Cardiac Tamponade - advised to gently diures while monitoring BP -Initial EKG: No ST-Segment Elevation -Trops: Indeterminate range (0.061 >> 0.039) -Received ASA, Ceftriaxone and Levofloxacin in ED -TSH: 1.03 -Repeat CXR: Improving Pericardial/Pleural Effusions -ABG: Respiratory Alkalosis -D-Dimer: 6.98 -Ferritin: 1145 -LDH: 424 -CRP: 17.65 -Procal: 1.1 -RVP: NAF -TERRY Panel: Negative for TERRY, Hernandez, SS-A/Ro, SS-B/La, U1RNP, RNP70, SCL-70, CENP, Racquel-1 -s/p Thoracentesis on 10/28 w/ 0.4L exudative fluid based on Light's Criteria - many WBCs, RBCs present - DDx includes ARDS, Empyema, Autoimmune Dysfunction, Malignancy -Pleural Fluid Culture: Pending -s/p Pericardial Window w/ conversion to Sternotomy on 10/30 - 1L bloody fluid drained from pericardium w/ pulsatile bleed noted from right ventricle - sutured , irrigated and closed w/ biopsies and cultures taken for further analysis -Fungal Studies: Pending -Quant TB: Pending -Per Pulm recs, will reduce sedation and attempt to wean from ventilator -Chest Tube DC'd on 11/02 -Will continue to coordinate w/ CVSurg, Cards, and Pulm - recs appreciated 2. A-Fib vs. A-Flutter, resolved -Per Resident Night Team, patient had episode of elevated HR in the 200s on 10/26 -s/p Adenosine 6mg, 12 mg, w/ decrease in HR to 180s -Follow-up EKG: A-Fib vs. A-Flutter -Follow-up Trops: Indeterminate Range (0.042, 0.051) -Started on Diltiazem gtt, with Amiodarone gtt added per Cardiology recs - DC'd since transfer to ICU based on NSR and stable BPs 3. Elevated troponin, ACS R/o -Likely 2/2 demand ischemia -Risk Factors: HTN, HLD, Rheumatoid Arthritis -HEART Score: 3 -Multiple EKGs show now signs of ST-Segment changes -See #1 4. Fever -T(101.7) and T(100.4) on 10/28 -s/p Levofloxacin and Ceftriaxone in ED, previously on Azithromycin prior to presenting to ED -VSS w/o elevated WBCs on initial evaluation, however patient documented 2 fevers since hospitalization and most recent WBC(27.9) on 10/31 -Started on Augmentin, per Cardiology recs - DC'd based on FOUO -Currently on Vanc and Zosyn after overnight fever of 101.7 on 10/28 - adequate broad-spectrum coverage initiated w/ no additional elevated temps records -Investigating other infectious, autoimmune etiologies -UA: Leukocytes, Blood, WBCs, Ketones -UCx: Unremarkable -No documented fevers for 5D 5. Hyperglycemia -Likely 2/2 steroid use - no documented Hx of DM -Q6H Accuchecks -Lantus 5u QAM - increased to 10u this AM -Moderate SSI -Hypoglycemia Protocol 6. Dyspnea -No evidence of PE on CTA - likely 2/2 to #1 -COVID-19 Testing performed on 10/21 - reported as negative - will consider retesting -VSS w/ CTAB -PRN Albuterol, supplemental O2 -Transferred to IMCU for High Flow Nasal Cannula / BiPap - now intubated in ICU - will attempt to wean as per above -Investigating possible infectious etiologies due to overnight fever -UCx/BCx: Unremarkable -Vanc 1 g Q12H, Zosyn 4.5 g Q6H - most recent Vanc trough within therapeutic range -See #1 7. HTN -Currently stable -Diltiazem and Amiodarone gtt - DC'd 8. HLD -Will continue patient's home medication regimen 9. Rheumatoid Arthritis -Not currently on DMARD -Patient has follow-up for this at the end of the month outpatient -TERRY Panel: Negative, as per above 10. CHF -Diagnosed in September 2019 - no reported ECHO - started on Furosemide, Potassium at that time -Previously on Metoprolol, Statin, ASA - will continue -BNP mildly elevated on presentation, no evidence of fluid overload on physical exam -TTE: EF (50-55%) w/ Diastolic Dysfunction (1/3) -Strict I/Os 9. Hx of DVTs -CTA ruled out PE -Previously on Xarelto 20 mg PO daily - will hold based on Pulm recs PCP: [facility] ([place], [place]) Code: Full Code Diet: Tube Feedings, Managed by Dietary DVT PPx: SCDs - Currently Holding Home Xarelto, per Pulm Recs GI PPx: Famotidine Dispo: Patient's condition is guarded yet stable, and she is intubated in the ICU for ongoing evaluation of Acute Hypoxic Respiratory Failure, likely 2/2 to Pericardial/Pleural Effusions, with now-corrected right ventricular free wall defect. CVSurg, Cardiology and Pulm consulted, recs appreciated. Will attempt to decrease sedation and wean from ventilator with continue broad-spectrum ABx, steroids while awaiting additional lab studies and biopsy results as per above. Expected LOS > 48H. Addendum - Attending - Attending Attestation Date/Time: 11/03/19 1172 I personally evaluated the patient and discussed the management with Dr. Boudreaux. I agree with the History, Examination, Assessment and Plan documented above with any addition or exceptions noted below. Patient critical but stable. Continue vent mgmt per Pulm. Chest tubes per CV surgery. Hopefully we get biopsy and initial culture results today so we can figure out a definitive treatment plan for her pericardial effusions and pleural effusions.
[2019-11-03 07:07] LABS: Actual Bicarbonate (HCO3a) 26.4 mEq/L (22-28); Base Excess (BEa) 2.8 mEq/L (-2.0 to +3.0); CO2 Tension 36.4 mmHg (35.0-45.0); Calcium, Ionized 1.11 mmol/L (1.12-1.30); Carboxyhemoglobin (COHb) 0.5 gm% (0.0-3.0); Hemoglobin (Hb) 8.6 g/dL (12.0-16.0); Potassium - ABG Lab 4.86 mmol/L (3.70-5.30); pH, Arterial 7.48 (7.35-7.45)
[2019-11-03 07:08] LABS: Puncture Site RRA
--- NOTE | 2019-11-03 07:49 | RAD ---
EXAM: CHEST ONE VIEW HISTORY: Pneumonia. Follow-up evaluation COMPARISON: 11/02/2019 FINDINGS: Endotracheal tube, nasogastric tube, and mediastinal tubes remain in place. Median sternotomy wires a re present. Cardiac silhouette remains enlarged. Pulmonary vasculature is within normal limits. Increased density is seen at the left lung base which may represent left pleural effusion and atelect asis. Tiny right pleural effusion and atelectasis is present at the right lung base. Pleural and parenchymal density left lung base has mildly increased from the prior exam. No other interval change . IMPRESSION: 1. Bilateral pleural effusions and associated atelectasis. Pleural and parenchymal changes left lung base appear mildly increased. 2. Cardiomegaly.
[2019-11-03] MEDS: Atorvastatin Calcium 40 MG TAB PO SCH (08:28)
[2019-11-03] MEDS: Amiodarone 200 MG TAB PO SCH ×2 (08:28→21:02)
[2019-11-03] MEDS: Aspirin Chewable 81 MG TAB PO SCH (08:28)
[2019-11-03] MEDS: Folic Acid 1 MG TAB PO SCH (08:28)
[2019-11-03] MEDS: Potassium Chloride 20 MEQ TAB PO SCH ×2 (08:28→17:00)
[2019-11-03] MEDS: Famotidine/PF 20 mg/2ml Vial SLOW IVP SCH ×2 (08:30→21:01)
--- NOTE | 2019-11-03 08:47 | PRG ---
DATE OF SERVICE: 11/03/2019 SUBJECTIVE: Ms. Berg is awake, she will follow commands. OBJECTIVE: VITAL SIGNS: Heart rate in the 70s, blood pressure 116/71, FiO2 is at 40. She is turned down to a rate of 4 and pressor support of 5. We will check for a leak and check a . LUNGS: Remarkable for equal breath sounds. HEART: Regular rhythm. ABDOMEN: Soft. EXTREMITIES: Without edema. DIAGNOSTIC DATA: Chest radiograph shows small bilateral effusions. A pH 7.48, CO2 of 36, PO2 of 61. Sodium 142, potassium 5.1, chloride 109, bicarb 25, BUN 30, creatinine 0.76. White count 23, hemoglobin 8.3, platelets 47. IMPRESSION: 1. Respiratory failure after pericardial window, which led to a sternotomy. 2. Spontaneous right ventricular perforation that was tamponaded. Pericardial cultures so far negative. Pericardial biopsy specimen is pending. We will work towards weaning her from mechanical ventilation. Change her steroids just to q.a.m. for now. Since this is unlikely to be pericarditis, I would like to see the final path report. CRITICAL CARE TIME: 30 minutes. Job ID: [id number]
[2019-11-03] MEDS: Insulin Glargine 10 UNITS in Pre-Filled Syringe 1 EACH SC SCH (09:22)
[2019-11-03] MEDS ORDERED: Insulin Glargine 14 UNITS in Pre-Filled Syringe 1 EACH SC SCH (09:40)
[2019-11-04] MEDS: Vancomycin 1 GM in Premix Bag 1 BAG IVPB SCH ×2 (00:33→11:46)
[2019-11-04] MEDS: Piperacillin/Tazobactam 4.5 GM in Sodium Chloride 0.9% 100 ML IVPB SCH ×2 (02:02→09:13)
[2019-11-04 04:35] LABS: Anion Gap 14 mmol/L (10-20); BUN (Urea Nitrogen) 27 mg/dL (9.8-20.1); Calc. Creatinine Clearance 89 mL/min (70-130); Calcium 7.9 mg/dL (7.8-10.44); Carbon Dioxide 25 mmol/L (23-31); Chloride 107 mmol/L (98-107); Estimated GFR-MDRD 88; Glucose 99 mg/dL (80-115); Potassium 4.6 mmol/L (3.5-5.1); Sodium 141 mmol/L (136-145)
[2019-11-04 04:48] LABS: Band 6 % (5-11); Hemoglobin 9.2 g/dL (12.0-16.0); Lymphocytes 11 % (21-51); MDiff Complete? YES; Mean Corpuscular HGB CONC 31.6 g/dL (32.0-36.0); Mean Corpuscular Hemoglobin 27.7 pg (27.0-31.0); Mean Corpuscular Volume 87.6 fL (78.0-98.0); Mean Platelet Volume 8.5 fL (7.4-10.4); Metamyelocyte 1 % (0-0); Monocytes 3 % (0-10); Myelocyte 2 % (0-0); Neutrophil 77 % (42-75); Nucleated RBC 2 % (0); Platelet Count 479 thou/uL (130-400); Polychromasia SLIGHT = 2-3 cells (100X) (0-2/hpf); RBC Distribution Width 15.9 % (11.5-14.5); White Blood Cell (WBC) Count 23.6 thou/uL (4.8-10.8)
--- NOTE | 2019-11-04 05:20 | PDOC.FM ---
- Subjective Subjective: Patient was resting comfortably in bed at the time of evaluation. Patient was alert and coherent at the time of evaluation and was able to answer simple questions and follow simple commands appropriately. Patient denied any acute overnight events, specifically with regard to chest pain and SOB. Per Nursing and the Resident Night Team, there were no acute overnight events documented. - Objective Vital Signs & Weight: Vital Signs (12 hours) Temp Pulse Ox 11/04/19 04:00 98.3 F 11/04/19 00:00 98.2 F 11/03/19 20:00 98.1 F 96 Weight Admit Weight 71.668 kg Weight 65.4 kg Most Recent Monitor Data Heart Rate from ECG 75 NIBP 133/88 NIBP BP-Mean 103 Respiration from ECG 19 SpO2 95 I&O: 11/02/19 11/03/19 11/04/19 06:59 06:59 06:59 Intake Total 2274 2559.5 1060.9 Output Total 1170 2727 1230 Balance 1104 -167.5 -169.1 Result Diagrams: 11/04/19 03:37 11/04/19 03:37 Phys Exam - Physical Examination Constitutional: NAD HEENT: moist MMs, sclera anicteric, oral pharynx no lesions Neck: supple, full ROM Respiratory: no wheezing, no rales, no rhonchi, clear to auscultation bilateral Cardiovascular: RRR, no significant murmur, no rub Gastrointestinal: soft, non-tender, no distention Musculoskeletal: no edema, pulses present Neurological: non-focal, moves all 4 limbs Psychiatric: normal affect Skin: no rash Dx/Plan (1) CHF (congestive heart failure) Code(s): I50.9 - HEART FAILURE, UNSPECIFIED Status: Acute (2) HLD (hyperlipidemia) Code(s): E78.5 - HYPERLIPIDEMIA, UNSPECIFIED Status: Acute (3) HTN (hypertension) Code(s): I10 - ESSENTIAL (PRIMARY) HYPERTENSION Status: Acute (4) Pericardial effusion Code(s): I31.3 - PERICARDIAL EFFUSION (NONINFLAMMATORY) Status: Acute (5) Acute respiratory failure with hypoxia Code(s): J96.01 - ACUTE RESPIRATORY FAILURE WITH HYPOXIA Status: Acute - Plan Plan: Patient is a 64 y/o female who presented to the ED for evaluation of SOB. 1. Acute Hypoxic Respiratory Failure, likely 2/2 to Pericardial/Pleural Effusions -Currently intubated in the ICU following progression of supplemental O2 from Nasal Cannula to High Flow Nasal Cannula to BiPap -Pleural/Pericardial Effusions Verified on CTA -Echo: Mild Pericardial Effusion, EF(50-55%), Diastolic Dysfunction 1/3 -Cardiology: Consulted, no evidence of Cardiac Tamponade - advised to gently diures while monitoring BP -Initial EKG: No ST-Segment Elevation -Trops: Indeterminate range (0.061 >> 0.039) -Received ASA, Ceftriaxone and Levofloxacin in ED -TSH: 1.03 -Repeat CXR: Improving Pericardial/Pleural Effusions -ABG: Respiratory Alkalosis -D-Dimer: 6.98 -Ferritin: 1145 -LDH: 424 -CRP: 17.65 -Procal: 1.1 -RVP: NAF -TERRY Panel: Negative for TERRY, Hernandez, SS-A/Ro, SS-B/La, U1RNP, RNP70, SCL-70, CENP, Racquel-1 -s/p Thoracentesis on 10/28 w/ 0.4L exudative fluid based on Light's Criteria - many WBCs, RBCs present - DDx includes ARDS, Empyema, Autoimmune Dysfunction, Malignancy -Pleural Fluid Culture: Pending -s/p Pericardial Window w/ conversion to Sternotomy on 10/30 - 1L bloody fluid drained from pericardium w/ pulsatile bleed noted from right ventricle - sutured , irrigated and closed w/ biopsies and cultures taken for further analysis -Fungal Studies: Pending -Quant TB: Pending -Cardiac Tissue Biopsies: Pending -Per Pulm recs, will reduce sedation and attempt to wean from ventilator - extubated and currently stable on O2 2L via NC -Chest Tube DC'd on 11/02 -Will continue to coordinate w/ CVSurg, Cards, and Pulm - recs appreciated 2. A-Fib vs. A-Flutter, resolved -Per Resident Night Team, patient had episode of elevated HR in the 200s on 10/26 -s/p Adenosine 6mg, 12 mg, w/ decrease in HR to 180s -Follow-up EKG: A-Fib vs. A-Flutter -Follow-up Trops: Indeterminate Range (0.042, 0.051) -Started on Diltiazem gtt, with Amiodarone gtt added per Cardiology recs - DC'd since transfer to ICU based on NSR and stable BPs -No overnight events reported 3. Elevated troponin, ACS R/o -Likely 2/2 demand ischemia -Risk Factors: HTN, HLD, Rheumatoid Arthritis -HEART Score: 3 -Multiple EKGs show now signs of ST-Segment changes -See #1 4. Fever -T(101.7) and T(100.4) on 10/28 -s/p Levofloxacin and Ceftriaxone in ED, previously on Azithromycin prior to presenting to ED -VSS w/o elevated WBCs on initial evaluation, however patient documented 2 fevers since hospitalization and most recent WBC(27.9) on 10/31 -Started on Augmentin, per Cardiology recs - DC'd based on FOUO -Currently on Vanc and Zosyn after overnight fever of 101.7 on 10/28 - adequate broad-spectrum coverage initiated w/ no additional elevated temps records -Investigating other infectious, autoimmune etiologies -UA: Leukocytes, Blood, WBCs, Ketones -UCx: Unremarkable -No documented fevers for 6D 5. Hyperglycemia -Likely 2/2 steroid use - no documented Hx of DM -Q6H Accuchecks -Lantus 5u QAM - increased to 14u - will likely taper down based on decreased steroid dosing -Moderate SSI -Hypoglycemia Protocol 6. Dyspnea -No evidence of PE on CTA - likely 2/2 to #1 -COVID-19 Testing performed on 10/21 - reported as negative - will consider retesting -VSS w/ CTAB -PRN Albuterol, supplemental O2 -Transferred to IMCU for High Flow Nasal Cannula / BiPap - currently extubated -Investigating possible infectious etiologies due to overnight fever - multiple studies still pending -UCx/BCx: Unremarkable -Vanc 1 g Q12H, Zosyn 4.5 g Q6H - most recent Vanc trough within therapeutic range -See #1 7. HTN -Currently stable -Diltiazem and Amiodarone gtt - DC'd 8. HLD -Will continue patient's home medication regimen 9. Rheumatoid Arthritis -Not currently on DMARD -Patient has follow-up for this at the end of the month outpatient -TERRY Panel: Negative, as per above 10. CHF -Diagnosed in September 2019 - no reported ECHO - started on Furosemide, Potassium at that time -Previously on Metoprolol, Statin, ASA - will continue -BNP mildly elevated on presentation, no evidence of fluid overload on physical exam -TTE: EF (50-55%) w/ Diastolic Dysfunction (1/3) -Strict I/Os 9. Hx of DVTs -CTA ruled out PE -Previously on Xarelto 20 mg PO daily - will hold based on Pulm recs PCP: [facility] ([place], [place]) Code: Full Code Diet: Clear Liquids - Will Advance as Tolerated DVT PPx: SCDs - Currently Holding Home Xarelto, per Pulm Recs GI PPx: Famotidine Dispo: Patient's condition is stable and improving following evaluation of Acute Hypoxic Respiratory Failure, likely 2/2 to Pericardial/Pleural Effusions, with now-corrected right ventricular free wall defect. CVSurg, Cardiology and Pulm consulted, recs appreciated. Will continue broad-spectrum ABx and decrease steroid as recommended by Pulm. Multiple biopsy and lab studies still pending, although no clear etiology for right ventricular free wall defect. Expected LOS > 48H. Addendum - Attending - Attending Attestation Date/Time: 11/04/19 1202 I personally evaluated the patient and discussed the management with Dr. Boudreaux. I agree with the History, Examination, Assessment and Plan documented above with any addition or exceptions noted below. Patient improved, off mechanical ventilation. She has normal sats on 2L currently. Denies complaints. Cultures and biopsy have resulted negative. Will discuss with Pulm and CV surg the need for continued abx. Continue therapy and work to get her set up for successful discharge.
[2019-11-04] MEDS ORDERED: Furosemide 40 MG/4 ML VIAL SLOW IVP SCH (06:15)
[2019-11-04] MEDS: Famotidine/PF 20 mg/2ml Vial SLOW IVP SCH ×2 (08:00→09:14)
[2019-11-04] MEDS: Potassium Chloride 20 MEQ TAB PO SCH ×2 (09:13→16:03)
[2019-11-04] MEDS: Aspirin Chewable 81 MG TAB PO SCH (09:13)
[2019-11-04] MEDS: Amiodarone 200 MG TAB PO SCH ×2 (09:13→20:15)
[2019-11-04] MEDS: Folic Acid 1 MG TAB PO SCH (09:13)
[2019-11-04] MEDS: Atorvastatin Calcium 40 MG TAB PO SCH (09:14)
[2019-11-04] MEDS: methylPREDNISolone Sod Succ 40 MG VIAL IVP SCH (09:14)
--- NOTE | 2019-11-04 09:53 | RAD ---
CHEST 1 VIEW: INDICATION: History of pneumonia. COMPARISON: Prior exam dated 11/03/2019. IMPRESSION: There has been interval extubation and removal of the gastric catheter. Right-sided thoracostomy tub es have been removed. Cardiomegaly and pulmonary vascular congestion persist. There is slightly wor sening in the bilateral pleural effusions. No pneumothorax is evident. POS: [facility]
[2019-11-04] MEDS: HumaLOG 300 UNITS/3 ML VIAL SC PRN (11:47)
[2019-11-04 12:14] LABS: QuantiFERON-TB Gold Plus Indeterminate (Negative)
[2019-11-04] MEDS ORDERED: Lorazepam 2 MG/ML VIAL SLOW IVP PRN (15:09)
[2019-11-04] MEDS: Fentanyl 100 MCG/2 ML VIAL SLOW IVP PRN (16:04)
--- NOTE | 2019-11-04 16:08 | PRG ---
DATE OF SERVICE: 11/04/2019 SUBJECTIVE: Kari Berg is awake and alert, but does not remember anything leading up to her intubation and extubation. OBJECTIVE: VITAL SIGNS: Heart rate is in 80s, blood pressure 106/72. LUNGS: Clear. HEART: Regular rhythm. ABDOMEN: Soft. LABORATORY DATA: White count 23.6, hemoglobin 9.2, platelets 479. Electrolytes are normal. BUN is 27. The pathology of her pericardium did not show malignancy. Pericardial fluid did not show any malignant cells. No acid-fast bacilli were seen. No fungal smear results are noted. IMPRESSION: 1. Perforation of right ventricle of unclear etiology. The perforation had tamponaded off prior to the window, she is stable. 2. Pleural effusion secondary to the inflammatory response to the perforated myocardium. 3. Underlying rheumatoid arthritis. Overall, she appears to be stable. She could move to the intermediate care. Job ID: [id number]
[2019-11-04] MEDS: Cefdinir 300 MG CAP PO SCH (20:16)
--- NOTE | 2019-11-05 06:06 | PDOC.FM ---
- Subjective Subjective: Patient was resting comfortably in bed at the time of evaluation. Patient denied any acute overnight events, particularly with regard to increasing chest pain, SOB, fevers, chills, N/V. - Objective Vital Signs & Weight: Vital Signs (12 hours) Temp Pulse Ox 11/05/19 00:07 97.7 F 11/04/19 20:00 97.8 F 97 Weight Admit Weight 71.668 kg Weight 71.3 kg Most Recent Monitor Data Heart Rate from ECG 93 NIBP 119/92 NIBP BP-Mean 101 Respiration from ECG 27 SpO2 94 I&O: 11/03/19 11/04/19 11/05/19 06:59 06:59 06:59 Intake Total 2559.5 1278.9 870 Output Total 2727 1327 1405 Balance -167.5 -48.1 -535 Result Diagrams: 11/05/19 07:43 11/05/19 10:10 Phys Exam - Physical Examination Constitutional: NAD HEENT: moist MMs, sclera anicteric, oral pharynx no lesions Neck: supple, full ROM Respiratory: no wheezing, no rales, no rhonchi, clear to auscultation bilateral Cardiovascular: RRR, no significant murmur, no rub Gastrointestinal: soft, non-tender, no distention, positive bowel sounds Musculoskeletal: no edema, pulses present Neurological: non-focal, moves all 4 limbs Psychiatric: normal affect Skin: no rash Dx/Plan (1) CHF (congestive heart failure) Code(s): I50.9 - HEART FAILURE, UNSPECIFIED Status: Acute (2) HLD (hyperlipidemia) Code(s): E78.5 - HYPERLIPIDEMIA, UNSPECIFIED Status: Acute (3) HTN (hypertension) Code(s): I10 - ESSENTIAL (PRIMARY) HYPERTENSION Status: Acute (4) Pericardial effusion Code(s): I31.3 - PERICARDIAL EFFUSION (NONINFLAMMATORY) Status: Acute (5) Acute respiratory failure with hypoxia Code(s): J96.01 - ACUTE RESPIRATORY FAILURE WITH HYPOXIA Status: Acute - Plan Plan: Patient is a 64 y/o female who presented to the ED for evaluation of SOB. 1. Acute Hypoxic Respiratory Failure, likely 2/2 to Pericardial/Pleural Effusions, resolved -Previously intubated in the ICU following progression of supplemental O2 from Nasal Cannula to High Flow Nasal Cannula to BiPap -Pleural/Pericardial Effusions Verified on CTA -Echo: Mild Pericardial Effusion, EF(50-55%), Diastolic Dysfunction / -Cardiology: Consulted, no initial evidence of Cardiac Tamponade - advised to gently diures while monitoring BP -Initial EKG: No ST-Segment Elevation -Trops: Indeterminate range (0.061 >> 0.039) -Received ASA, Ceftriaxone and Levofloxacin in ED -TSH: 1.03 -Repeat CXR: Improving Pericardial/Pleural Effusions -Initial ABG: Respiratory Alkalosis - currently improving -D-Dimer: 6.98 -Ferritin: 1145 -LDH: 424 -CRP: 17.65 -Procal: 1.1 -RVP: NAF -TERRY Panel: Negative for TERRY, Hernandez, SS-A/Ro, SS-B/La, U1RNP, RNP70, SCL-70, CENP, Racquel-1 -s/p Thoracentesis on 10/28 w/ 0.4L exudative fluid based on Light's Criteria - many WBCs, RBCs present - Initial DDx includes ARDS, Empyema, Autoimmune Dysfunction, Malignancy - cause unknown to date -Pleural Fluid Culture: NGTD -s/p Pericardial Window w/ conversion to Sternotomy on 10/30 - 1L bloody fluid drained from pericardium w/ pulsatile bleed noted from right ventricle - sutured , irrigated and closed w/ biopsies and cultures taken for further analysis -Fungal Studies: Pending -Quant TB: Negative -Cardiac Tissue Biopsies: Unremarkable -Currently extubated and stable on < 0.5L O2 via NC -Chest Tube DC'd on 11/02 -Will continue to coordinate w/ CVSurg, Cards, and Pulm - recs appreciated 2. A-Fib vs. A-Flutter, resolved -Per Resident Night Team, patient had episode of elevated HR in the 200s on 10/26 -s/p Adenosine 6mg, 12 mg, w/ decrease in HR to 180s -Follow-up EKG: A-Fib vs. A-Flutter -Follow-up Trops: Indeterminate Range (0.042, 0.051) -Started on Diltiazem gtt, with Amiodarone gtt added per Cardiology recs - DC'd since transfer to ICU based on NSR and stable BPs -Currently receiving home dose of Amiodarone 400 mg PO BID -No overnight events reported 3. Elevated troponin, ACS R/o -Likely 2/2 demand ischemia -Risk Factors: HTN, HLD, Rheumatoid Arthritis -HEART Score: 3 -Multiple EKGs show now signs of ST-Segment changes -See #1 4. Fever, resolved -T(101.7) and T(100.4) on 10/28 -s/p Levofloxacin and Ceftriaxone in ED, previously on Azithromycin prior to presenting to ED -VSS w/o elevated WBCs on initial evaluation, however patient documented 2 fevers since hospitalization and most recent WBC(23.6) on 11/03 -Previously on Augmentin, per Cardiology recs - DC'd based on FOUO on 10/28 and started on Vancomycin and Zosyn - DC on 11/04 -Currently receiving Cefdinir 300 mg PO BID, per Pulm recs -Investigating other infectious, autoimmune etiologies -UA: Leukocytes, Blood, WBCs, Ketones -UCx: Unremarkable -No documented fevers for >7D 5. Hyperglycemia, improving -Likely 2/2 steroid use - no documented Hx of DM -Q6H Accuchecks -Lantus 10u QAM -Moderate SSI -Hypoglycemia Protocol 6. Dyspnea, resolved -No evidence of PE on CTA - likely 2/2 to #1 -COVID-19 Testing performed on 10/21 - reported as negative - will consider retesting -VSS w/ CTAB -PRN Albuterol, supplemental O2 PRN -Transferred to IMCU for High Flow Nasal Cannula / BiPap - currently extubated -Investigating possible infectious etiologies due to overnight fever on 10/28 - no apparent causes identified -UCx/BCx: Unremarkable -See #1 7. HTN -Currently stable -Diltiazem and Amiodarone gtt - DC'd -Currently receiving Amiodarone PO as per above 8. HLD -Will continue patient's home medication regimen 9. Rheumatoid Arthritis -Not currently on DMARD -Patient has follow-up for this at the end of the month outpatient -TERRY Panel: Negative, as per above 10. CHF -Diagnosed in September 2019 - no reported ECHO - started on Furosemide, Potassium at that time -Previously on Metoprolol, Statin, ASA - will continue as tolerated -BNP mildly elevated on presentation, no evidence of fluid overload on physical exam -TTE: EF (50-55%) w/ Diastolic Dysfunction (1/3) -Strict I/Os 9. Hx of DVTs -CTA ruled out PE -Previously on Xarelto 20 mg PO daily - will hold based on Pulm recs PCP: [facility] ([place], [place]) Code: Full Code Diet: Herat Healthy - Advancing as Tolerated DVT PPx: SCDs - Currently Holding Home Xarelto, per Pulm Recs GI PPx: Famotidine Dispo: Patient's condition is stable and steadily improving following treatment of Acute Hypoxic Respiratory Failure, likely 2/2 to Pericardial/Pleural Effusions, with now-corrected right ventricular free wall defect. CVSurg, Cardiology and Pulm consulted, recs appreciated. Will de-escalate ABx as infectious etiologies appear unlikely and will decrease steroid as recommended by Pulm. Fungal studies still pending, although no clear etiology for right ventricular free wall defect is evident at this time. Will request Post-Acute Care Screen and consult PT/OT/Case Management to assist with rehabilitation efforts. Expected LOS > 48H. Addendum - Attending - Attending Attestation Date/Time: 11/05/19 3583 I personally evaluated the patient and discussed the management with Dr. Boudreaux. I agree with the History, Examination, Assessment and Plan documented above with any addition or exceptions noted below. Patient overall stable and improved at this time. She is now on NC and feeling well. Biopsy and cultures did not reveal cause for her acute onset of decompensation. Pulm and CV surgery on board. Histo tests pending. She has hyperkalemia this morning in the setting of normal renal function. Will hold potassium, check EKG, and Kayexolate x1. Monitor and trend.
[2019-11-05] MEDS: HumaLOG 300 UNITS/3 ML VIAL SC PRN ×2 (06:28→17:47)
--- NOTE | 2019-11-05 07:50 | RAD ---
EXAM: CHEST ONE VIEW HISTORY: Pneumonia. COMPARISON: 11/04/2019 FINDINGS: Median sternotomy wires are again seen. Patient is rotated to the right, but the cardiac silhouette d oes appear enlarged. Bilateral pleural effusions are again seen larger in size on the left with associated bibasilar atelectasis. No other interval change. IMPRESSION: 1. Bilateral pleural effusions and associated atelectasis greater on the left. 2. Cardiomegaly.
[2019-11-05 08:40] LABS: Anisocytosis SLIGHT = 6-15 cells (100X) (0-5/hpf); Band 3 % (5-11); Eosinophils 1 % (0-10); Hemoglobin 9.3 g/dL (12.0-16.0); Lymphocytes 5 % (21-51); MDiff Complete? YES; Mean Corpuscular HGB CONC 32.2 g/dL (32.0-36.0); Mean Corpuscular Hemoglobin 27.6 pg (27.0-31.0); Mean Corpuscular Volume 85.9 fL (78.0-98.0); Mean Platelet Volume 8.6 fL (7.4-10.4); Metamyelocyte 1 % (0-0); Monocytes 3 % (0-10); Myelocyte 8 % (0-0); Neutrophil 79 % (42-75); Platelet Count 367 thou/uL (130-400); Platelet Morphology Comment Appears Adequate; Polychromasia SLIGHT = 2-3 cells (100X) (0-2/hpf); RBC Distribution Width 17.2 % (11.5-14.5); Red Blood Cell (RBC) Count 3.36 mill/uL (4.20-5.40); White Blood Cell (WBC) Count 24.5 thou/uL (4.8-10.8)
[2019-11-05 08:43] LABS: Anion Gap 21 mmol/L (10-20); BUN (Urea Nitrogen) 25 mg/dL (9.8-20.1); Calc. Creatinine Clearance 83 mL/min (70-130); Calcium 8.4 mg/dL (7.8-10.44); Carbon Dioxide 17 mmol/L (23-31); Chloride 110 mmol/L (98-107); Estimated GFR-MDRD 74; Glucose 116 mg/dL (80-115); Potassium 6.5 mmol/L (3.5-5.1); Sodium 141 mmol/L (136-145)
[2019-11-05] MEDS: Aspirin Chewable 81 MG TAB PO SCH (08:49)
[2019-11-05] MEDS: Potassium Chloride 20 MEQ TAB PO SCH (08:49)
[2019-11-05] MEDS: Atorvastatin Calcium 40 MG TAB PO SCH (08:49)
[2019-11-05] MEDS: Amiodarone 200 MG TAB PO SCH ×2 (08:49→21:09)
[2019-11-05] MEDS: Cefdinir 300 MG CAP PO SCH ×2 (08:49→21:09)
[2019-11-05] MEDS: Folic Acid 1 MG TAB PO SCH (08:49)
[2019-11-05] MEDS: Famotidine/PF 20 mg/2ml Vial SLOW IVP SCH ×2 (08:50→21:09)
[2019-11-05] MEDS: methylPREDNISolone Sod Succ 40 MG VIAL IVP SCH (08:50)
[2019-11-05] MEDS: Insulin Glargine 10 UNITS in Pre-Filled Syringe 1 EACH SC SCH (08:50)
[2019-11-05] MEDS: Fentanyl 100 MCG/2 ML VIAL SLOW IVP PRN ×2 (08:53→15:02)
[2019-11-05 10:39] LABS: Anion Gap 18 mmol/L (10-20); BUN (Urea Nitrogen) 25 mg/dL (9.8-20.1); Calc. Creatinine Clearance 79 mL/min (70-130); Calcium 8.3 mg/dL (7.8-10.44); Carbon Dioxide 20 mmol/L (23-31); Chloride 106 mmol/L (98-107); Estimated GFR-MDRD 70; Glucose 174 mg/dL (80-115); Sodium 137 mmol/L (136-145)
[2019-11-05 10:47] LABS: Potassium 6.6 mmol/L (3.5-5.1)
[2019-11-05] MEDS ORDERED: Furosemide 20 MG/2 ML VIAL SLOW IVP SCH (11:00)
[2019-11-05 15:55] LABS: Anion Gap 16 mmol/L (10-20); BUN (Urea Nitrogen) 23 mg/dL (9.8-20.1); Calc. Creatinine Clearance 82 mL/min (70-130); Calcium 7.9 mg/dL (7.8-10.44); Carbon Dioxide 20 mmol/L (23-31); Chloride 103 mmol/L (98-107); Estimated GFR-MDRD 73; Glucose 231 mg/dL (80-115); Potassium 4.1 mmol/L (3.5-5.1); Sodium 135 mmol/L (136-145)
[2019-11-05 17:12] LABS: A. flavus Negative (Neg:<1:1); A. fumigatus Negative (Neg:<1:1); A. niger Negative (Neg:<1:1); Blastomyces AB Negative (Neg:<1:1)
[2019-11-05] MEDS: Acetaminophen 325 MG TAB PO PRN (17:41)
[2019-11-05] MEDS: Rivaroxaban 10 MG TAB PO SCH (17:41)
[2019-11-06 03:23] LABS: #Eosinphils 0.2 thou/uL (0.0-0.7); #Lymphocytes 2.3 thou/uL (1.20-3.40); #Monocytes 1.3 thou/uL (0.11-0.59); %Lymphocytes 12.4 % (21.0-51.0); %Monocytes 6.8 % (0.0-10.0); %Neutrophils 79.8 % (42.0-75.0); Hemoglobin 8.9 g/dL (12.0-16.0); Mean Corpuscular HGB CONC 28.6 g/dL (32.0-36.0); Mean Corpuscular Volume 87.5 fL (78.0-98.0); Mean Platelet Volume 8.2 fL (7.4-10.4); Platelet Count 469 thou/uL (130-400); RBC Distribution Width 17.3 % (11.5-14.5); Red Blood Cell (RBC) Count 3.56 mill/uL (4.20-5.40); White Blood Cell (WBC) Count 18.8 thou/uL (4.8-10.8)
[2019-11-06 03:28] LABS: Anion Gap 13 mmol/L (10-20); BUN (Urea Nitrogen) 21 mg/dL (9.8-20.1); Calc. Creatinine Clearance 97 mL/min (70-130); Calcium 7.5 mg/dL (7.8-10.44); Carbon Dioxide 24 mmol/L (23-31); Chloride 107 mmol/L (98-107); Estimated GFR-MDRD 88; Glucose 83 mg/dL (80-115); Potassium 3.5 mmol/L (3.5-5.1); Sodium 140 mmol/L (136-145)
[2019-11-06] MEDS: Acetaminophen 325 MG TAB PO PRN (04:28)
--- NOTE | 2019-11-06 05:44 | PDOC.FM ---
- Subjective Subjective: Pt denies any complaints this morning. Nods and shakes heads to questions. Specifically denies any SOB, CP, feeling dehydrated, or dizziness. No events overnight. - Objective Vital Signs & Weight: Vital Signs (12 hours) Temp Pulse Ox 11/05/19 23:06 97.7 F 11/05/19 20:00 99 11/05/19 19:25 97.5 F L Weight Admit Weight 71.668 kg Weight 71.3 kg Most Recent Monitor Data Heart Rate from ECG 75 NIBP 114/73 NIBP BP-Mean 86 Respiration from ECG 25 SpO2 97 I&O: 11/04/19 11/05/19 11/06/19 06:59 06:59 06:59 Intake Total 1278.9 1026 1005 Output Total 1327 2055 925 Balance -48.1 -1029 80 Result Diagrams: 11/06/19 03:00 11/06/19 03:00 Phys Exam - Physical Examination Constitutional: NAD HEENT: moist MMs pale palebral conjunctiva Respiratory: no wheezing, clear to auscultation bilateral Cardiovascular: RRR, no significant murmur Gastrointestinal: soft, non-tender Musculoskeletal: no edema, pulses present Neurological: moves all 4 limbs Deviation from normal: Difficult to asses in nonverbal pt Skin: no rash, cap refill <2 seconds Dx/Plan - Plan Plan: Acute Hypoxic Respiratory Failure, likely 2/2 to Pericardial/Pleural Effusions, resolved -s/p Pericardial Window w/ conversion to Sternotomy on 10/30 - 1L bloody fluid drained from pericardium w/ pulsatile bleed noted from right ventricle -workup for etiology at this time still unclear -Stable on 1L O2 via NC -Chest Tube DC'd on 11/02 -Omnicef - DC this morning -Will continue to coordinate w/ CVSurg, Cards, and Pulm - recs appreciated Hyperkalemia - Resolved - Noted yesterday on am labs - Potassium was held and received 1x Anna Marie-x A-Fib vs. A-Flutter, resolved -Amiodarone 400 mg PO BID -No overnight events reported Elevated troponin, ACS R/o -Likely 2/2 demand ischemia from pericardial effusion Hyperglycemia, improving -Likely 2/2 steroid use - no documented Hx of DM -Q6H Accuchecks -Lantus 10u QAM -Moderate SSI -Fasting glucose this am: 83 HTN -Currently stable HLD -Will continue patient's home medication regimen Rheumatoid Arthritis -Not currently on DMARD -Patient has follow-up for this at the end of the month outpatient -TERRY Panel: Negative CHF -Statin, ASA -TTE: EF (50-55%) w/ Diastolic Dysfunction (1/3) -Strict I/Os Hx of DVTs -CTA ruled out PE -On xarelto PCP: [facility] ([place], [place]) Code: Full Code Diet: Herat Healthy - Advancing as Tolerated DVT PPx: SCDs - Currently Holding Home Xarelto, per Pulm Recs GI PPx: Famotidine Dispo: Patient's condition is stable and improving - oxygen requirement is minimal. CVSurg, Cardiology and Pulm consulted, recs appreciated. DC'd abx and tapered steroids yesterday. Fungal studies still pending. No clear etiology for right ventricular free wall defect is evident at this time. Rehab screen rec Rehab center for placement. ELOS >48hr. Addendum - Attending - Attending Attestation Date/Time: 11/06/19 1001 I personally evaluated the patient and discussed the management with [Shantal ] I agree with the History, Examination, Assessment and Plan documented above with any addition or exceptions noted below.
[2019-11-06] MEDS: Fentanyl 100 MCG/2 ML VIAL SLOW IVP PRN ×4 (05:46→22:23)
--- NOTE | 2019-11-06 08:35 | RAD ---
PORTABLE CHEST ONE VIEW: 11/06/2019 4:13 a.m. HISTORY: Pneumonia. COMPARISON: Previous day. FINDINGS: Changes of median sternotomy are again seen. The heart is enlarged. Bilateral pleural effusions are a gain noted, left larger than right. Adjacent atelectatic changes. No pneumothoraces are seen. IMPRESSION: Stable examination. POS: OFF
[2019-11-06] MEDS: Cefdinir 300 MG CAP PO SCH (09:40)
[2019-11-06] MEDS: Amiodarone 200 MG TAB PO SCH ×2 (09:40→20:20)
[2019-11-06] MEDS: Aspirin Chewable 81 MG TAB PO SCH (09:40)
[2019-11-06] MEDS: Atorvastatin Calcium 40 MG TAB PO SCH (09:40)
[2019-11-06] MEDS: Famotidine/PF 20 mg/2ml Vial SLOW IVP SCH ×2 (09:40→20:20)
[2019-11-06] MEDS: Folic Acid 1 MG TAB PO SCH (09:40)
[2019-11-06] MEDS: Insulin Glargine 10 UNITS in Pre-Filled Syringe 1 EACH SC SCH (09:41)
[2019-11-06] MEDS: methylPREDNISolone Sod Succ 40 MG VIAL IVP SCH (09:41)
--- NOTE | 2019-11-06 11:35 | PRG ---
DATE OF SERVICE: 11/06/2019 SUBJECTIVE: The patient is doing well. No complaints. Wants to go home. OBJECTIVE: VITAL SIGNS: Temperature 96.8, pulse 80, blood pressure 100/66, O2 saturation 95%. HEENT: Unremarkable. NECK: No adenopathy or JVD. CHEST: Clear. CARDIAC: S1 and S2. Regular. ABDOMEN: Soft. EXTREMITIES: No edema. LABORATORY DATA: White blood cell count 18.8, hematocrit 31, and platelet count 469. Sodium 140, potassium 3.5, BUN 21, creatinine 0.6, glucose 83. IMPRESSION: 1. Status post perforated right ventricle of unclear etiology. 2. Pleural effusion. 3. Underlying rheumatoid arthritis. PLAN: Basically a rehab project at this point. Continue pulmonary toilet measures. Job ID: [id number]
[2019-11-06] MEDS: Rivaroxaban 10 MG TAB PO SCH (17:34)
[2019-11-06] MEDS: HumaLOG 300 UNITS/3 ML VIAL SC PRN (17:34)
[2019-11-07 04:26] LABS: #Eosinphils 0.2 thou/uL (0.0-0.7); #Lymphocytes 2.4 thou/uL (1.20-3.40); #Monocytes 1.3 thou/uL (0.11-0.59); #Neutrophils 12.6 thou/uL (1.40-6.50); %Basophils 0.1 % (0.0-1.0); %Eosinophils 1.2 % (0.0-10.0); %Lymphocytes 14.4 % (21.0-51.0); %Monocytes 7.6 % (0.0-10.0); %Neutrophils 76.7 % (42.0-75.0); Hemoglobin 8.6 g/dL (12.0-16.0); Mean Corpuscular HGB CONC 31.7 g/dL (32.0-36.0); Mean Corpuscular Hemoglobin 28.5 pg (27.0-31.0); Mean Corpuscular Volume 89.8 fL (78.0-98.0); Mean Platelet Volume 8.5 fL (7.4-10.4); Platelet Count 473 thou/uL (130-400); RBC Distribution Width 17.5 % (11.5-14.5); Red Blood Cell (RBC) Count 3.01 mill/uL (4.20-5.40); White Blood Cell (WBC) Count 16.5 thou/uL (4.8-10.8)
[2019-11-07 04:43] LABS: Anion Gap 11 mmol/L (10-20); BUN (Urea Nitrogen) 18 mg/dL (9.8-20.1); Calc. Creatinine Clearance 98 mL/min (70-130); Calcium 7.5 mg/dL (7.8-10.44); Carbon Dioxide 25 mmol/L (23-31); Chloride 107 mmol/L (98-107); Estimated GFR-MDRD 89; Glucose 68 mg/dL (80-115); Potassium 3.5 mmol/L (3.5-5.1); Sodium 139 mmol/L (136-145)
--- NOTE | 2019-11-07 05:50 | PDOC.FM ---
- Subjective Subjective: Pt feeling well this morning. Up in chair on exam. Denies any sob or CP. Discussed working with pt and weaning oxygen - pt agreeable with plan. - Objective Vital Signs & Weight: Vital Signs (12 hours) Temp Pulse Resp BP Pulse Ox 11/07/19 04:00 98 F 72 18 106/57 L 94 L 11/06/19 23:10 70 20 118/62 11/06/19 20:00 95 11/06/19 19:50 97.6 F 81 20 111/65 95 Weight Admit Weight 71.668 kg Weight 71.3 kg Most Recent Monitor Data Heart Rate from ECG 73 NIBP 106/69 NIBP BP-Mean 81 Respiration from ECG 38 SpO2 94 I&O: 11/05/19 11/06/19 11/07/19 06:59 06:59 06:59 Intake Total 1026 1005 740 Output Total 3281 1300 Balance -1029 -168 740 Result Diagrams: 11/07/19 03:35 11/07/19 03:35 Phys Exam - Physical Examination Constitutional: NAD HEENT: moist MMs Neck: full ROM Respiratory: clear to auscultation bilateral Cardiovascular: RRR CDI sternotomy Gastrointestinal: soft, non-tender Musculoskeletal: no edema Neurological: moves all 4 limbs Dx/Plan - Plan Plan: Acute Hypoxic Respiratory Failure, likely 2/2 to Pericardial/Pleural Effusions, resolved -s/p Pericardial Window w/ conversion to Sternotomy on 10/30 - 1L bloody fluid drained from pericardium w/ pulsatile bleed noted from right ventricle -workup for etiology at this time still unclear -Oxygen requirement primarily only at night at this point and minimal around 1L -Transferred to tele floor yesterday -Will continue to coordinate w/ CVSurg, Cards, and Pulm - recs appreciated A-Fib vs. A-Flutter, resolved -Amiodarone 400 mg PO BID -No overnight events reported Hyperglycemia, improving -Likely 2/2 steroid use - no documented Hx of DM -ACHS -Lantus 10u QAM -Moderate SSI -Fasting glucose this am: 68 HTN -Currently stable HLD -Will continue patient's home medication regimen Rheumatoid Arthritis -Not currently on DMARD -TERRY Panel: Negative CHF -Statin, ASA -TTE: EF (50-55%) w/ Diastolic Dysfunction (1/3) -Strict I/Os Hx of DVTs -CTA ruled out PE -On xarelto PCP: [facility] ([place], [place]) Code: Full Code Diet: heart healthy - Advancing as Tolerated DVT PPx: xarelto GI PPx: Famotidine Dispo: Patient's condition is stable and improving - oxygen requirement is minimal. CVSurg, Cardiology and Pulm consulted, recs appreciated. Transferred to tele yesterday Fungal studies still pending. No clear etiology for right ventricular free wall defect is evident at this time. Rehabing patient currently as only can do trx at this time. Pt is adamant about returning to home with HH. Will continue to rehab her here during this time. ELOS >48hr. Addendum - Attending - Attending Attestation Date/Time: 11/07/19 0312 I personally evaluated the patient and discussed the management with [Shantal ] I agree with the History, Examination, Assessment and Plan documented above with any addition or exceptions noted below.
--- NOTE | 2019-11-07 09:28 | RAD ---
PORTABLE CHEST 1 VIEW: Date: 11/07/2019 Time: 0705 hours HISTORY: Pneumonia. FINDINGS/IMPRESSION: Comparison with previous day. There are changes of median sternotomy. The heart is enlarged. Bilateral pleural effusions again seen , left larger than right, with adjacent atelectatic changes/consolidation. No pneumothoraces are iden tified. POS: OFF
[2019-11-07] MEDS: Atorvastatin Calcium 40 MG TAB PO SCH (10:16)
[2019-11-07] MEDS: Aspirin Chewable 81 MG TAB PO SCH (10:16)
[2019-11-07] MEDS: Amiodarone 200 MG TAB PO SCH ×2 (10:16→21:35)
[2019-11-07] MEDS: Fentanyl 100 MCG/2 ML VIAL SLOW IVP PRN ×2 (10:17→21:41)
[2019-11-07] MEDS: Famotidine/PF 20 mg/2ml Vial SLOW IVP SCH (10:17)
[2019-11-07] MEDS: Folic Acid 1 MG TAB PO SCH (10:17)
[2019-11-07] MEDS: Insulin Glargine 10 UNITS in Pre-Filled Syringe 1 EACH SC SCH (10:19)
[2019-11-07] MEDS: methylPREDNISolone Sod Succ 40 MG VIAL IVP SCH (10:20)
--- NOTE | 2019-11-07 11:42 | PRG ---
DATE OF SERVICE: 11/07/2019 SUBJECTIVE: The patient seems to be doing okay. She has no acute complaints, wants to go home. OBJECTIVE: VITAL SIGNS: Temperature 98, pulse 70, respirations 18, O2 saturation 95% on room air, blood pressure 106/57. HEENT: Clear. NECK: No JVD. LUNGS: Clear anteriorly. CARDIAC: S1 and S2. Regular. Scar well healed. ABDOMEN: Soft. EXTREMITIES: No edema. LABORATORY DATA: White blood cell count 16.5, hematocrit 27, and platelet count 473. Sodium 139, BUN 18, creatinine 0.6, glucose 68. Chest x-ray shows pleural effusion on the left, does not look that much different from before. ASSESSMENT: 1. Status post perforated right ventricle of unclear etiology. 2. Pleural effusion. 3. Rheumatoid arthritis. PLAN: 1. Continue rehabilitative plan. 2. She is currently anticoagulated. 3. Continue low-dose steroids, but can convert to prednisone. Job ID: [id number]
[2019-11-07] MEDS: HumaLOG 300 UNITS/3 ML VIAL SC PRN ×2 (12:54→17:40)
--- NOTE | 2019-11-07 14:00 | PDOC.CPN ---
- Subjective Date: 11/07/19 Time: 14:11 Interval history: the pt seen and examined. No overnight events. No cardiac complaints. - Objective Allergies/Adverse Reactions: Allergies Allergy/AdvReac Type Severity Reaction Status Date / Time Iodinated Contrast Media Allergy Mild Itching Verified 10/25/19 21:01 ibuprofen [From Advil] Allergy Swelling/ Verified 10/25/19 21:01 Hard Time Breathing Visit Medications: Current Medications Acetaminophen (Tylenol) 650 mg PO Q4H PRN PRN Reason: Headache/Fever/Mild Pain (1-3) Last Admin: 11/06/19 04:28 Dose: 650 mg Albuterol Sulfate (Ventolin) 2.5 mg NEB [id number] PRN PRN Reason: Wheezing Last Admin: 10/27/19 08:15 Dose: 2.5 mg Amiodarone HCl (Cordarone) 400 mg PO BID [facility] Last Admin: 11/07/19 10:16 Dose: 400 mg Aspirin (Aspirin Chewable) 81 mg PO DAILY [facility] Last Admin: 11/07/19 10:16 Dose: 81 mg Atorvastatin Calcium (Lipitor) 40 mg PO DAILY [facility] Last Admin: 11/07/19 10:16 Dose: 40 mg Dextrose/Water (Dextrose 50%) 25 gm SLOW IVP PRN PRN PRN Reason: Hypoglycemia Famotidine (Pepcid) 20 mg SLOW IVP BID [facility] Last Admin: 11/07/19 10:17 Dose: 20 mg Fentanyl (Sublimaze) 25 mcg SLOW IVP Q2H PRN PRN Reason: Pain Last Admin: 11/07/19 10:17 Dose: 25 mcg Folic Acid (Folvite) 1 mg PO DAILY [facility] Last Admin: 11/07/19 10:17 Dose: 1 mg Glucagon (Glucagon) 1 mg IM PRN PRN PRN Reason: Hypoglycemia Dextrose/Water (D5w) 1,000 mls @ 0 mls/hr IV .Q0M PRN PRN Reason: Hypoglycemia Insulin Glargine 10 units/ (Miscellaneous Medication) 0.1 mls @ 0.2 mls/hr SC QAM [facility] Last Admin: 11/07/19 10:19 Dose: 0.1 mls Insulin Human Lispro (Humalog) 0 units SC .MILD SLIDING SCALE PRN PRN Reason: Mild Correctional Scale Last Admin: 11/07/19 12:54 Dose: 2 unit Lorazepam (Ativan) 2 mg SLOW IVP Q6H PRN PRN Reason: Anxiety/Agitation Prednisone (Prednisone) 20 mg PO DAILY [facility] Rivaroxaban (Xarelto) 20 mg PO 1800 [facility] Last Admin: 11/06/19 17:34 Dose: 20 mg Sodium Chloride (Flush - Normal Saline) 10 ml IVF Q12HR [facility] Last Admin: 11/07/19 10:20 Dose: 10 ml Sodium Chloride (Flush - Normal Saline) 10 ml IVF PRN PRN PRN Reason: Saline Flush Last Admin: 11/05/19 15:03 Dose: 10 ml Vital Signs & Weight: Vital Signs Temp Pulse Resp BP BP Pulse Ox 11/07/19 12:24 97.1 F L 76 20 110/62 98 11/07/19 08:00 97.4 F L 74 12 127/65 114/65 94 L 11/07/19 04:00 98 F 72 18 106/57 L 94 L Admit Weight 158 lb Weight 145 lb 8.081 oz - Physical Exam General: alert & oriented x3 HEENT: mucus membranes moist Neck: supple neck Cardiac: regular rate and rhythm, S1/S2 Lungs: clear to auscultation, decreased breath sounds Neuro: cranial nerve 2-12 intact Extremities: no edema - Labs Result Diagrams: 11/07/19 03:35 11/07/19 03:35 Troponin/CKMB CK-MB (CK-2) 0.6 ng/mL (0-6.6) 10/27/19 23:41 Troponin I 0.047 ng/mL (< 0.028) H 10/29/19 08:26 - Telemetry Sinus rhythms and dysrhythmias: sinus rhythm - Assessment/Plan Assessment/Plan: 1. Acute Resp ex 2/2 Pericardial/Pleural Effusions - s/p Pericardial Window w/ conversion to Sternotomy on 10/30 with 1L bloody fluid drained from pericardium w/ pulsatile bleed noted from right ventricle with unknown ethology - stable with 1L NC; 2. Parox Afib/Aflutter - remains in SR; on Amiodarone 400 mg PO BID (since 10/28) with Xarelto 20mg qd for Afib and DVT management 3. Chronic diastolic HF - will resume BBlocker, COREY and diuretic with more stable VS 4. HTN - stable without any BP meds or diuretic 5. HLD - on Statin 6. DM type 2 7. Hx of DVTs - on Xarelto MAR reviewed * Dr Tolbert's pt
[2019-11-07] MEDS: Rivaroxaban 10 MG TAB PO SCH (17:39)
[2019-11-07] MEDS: Famotidine 20 MG TAB PO SCH (21:35)
[2019-11-08 04:13] LABS: #Eosinphils 0.1 thou/uL (0.0-0.7); #Lymphocytes 2.2 thou/uL (1.20-3.40); #Monocytes 1.3 thou/uL (0.11-0.59); #Neutrophils 13.6 thou/uL (1.40-6.50); %Basophils 0.2 % (0.0-1.0); %Eosinophils 0.8 % (0.0-10.0); %Lymphocytes 12.5 % (21.0-51.0); %Monocytes 7.8 % (0.0-10.0); %Neutrophils 78.7 % (42.0-75.0); Hemoglobin 9.1 g/dL (12.0-16.0); Mean Corpuscular HGB CONC 31.5 g/dL (32.0-36.0); Mean Corpuscular Hemoglobin 28.5 pg (27.0-31.0); Mean Corpuscular Volume 90.5 fL (78.0-98.0); Mean Platelet Volume 8.3 fL (7.4-10.4); Platelet Count 510 thou/uL (130-400); RBC Distribution Width 17.7 % (11.5-14.5); Red Blood Cell (RBC) Count 3.18 mill/uL (4.20-5.40); White Blood Cell (WBC) Count 17.3 thou/uL (4.8-10.8)
[2019-11-08 04:33] LABS: Anion Gap 13 mmol/L (10-20); BUN (Urea Nitrogen) 21 mg/dL (9.8-20.1); Calc. Creatinine Clearance 78 mL/min (70-130); Calcium 7.9 mg/dL (7.8-10.44); Carbon Dioxide 21 mmol/L (23-31); Chloride 106 mmol/L (98-107); Estimated GFR-MDRD 75; Glucose 97 mg/dL (80-115); Potassium 3.4 mmol/L (3.5-5.1); Sodium 137 mmol/L (136-145)
--- NOTE | 2019-11-08 07:09 | PDOC.FM ---
- Subjective Subjective: Pt is improving. She states continues with weakness, SOB. She has ambulated to the chair toilet w/ assistance. She does not feel strong enough on her own. She does feel inpt therapy would benefit her but she does not want to be exposed to covid at a facility. She is sinus rhythm on tele monitors. - Objective Vital Signs & Weight: Vital Signs (12 hours) Temp Pulse Resp BP BP Pulse Ox 11/08/19 04:00 97.8 F 72 18 124/62 94 L 11/07/19 20:00 97 11/07/19 19:54 97.7 F 86 20 118/78 97 Weight Admit Weight 71.668 kg Weight 65.887 kg Most Recent Monitor Data Heart Rate from ECG 73 NIBP 106/69 NIBP BP-Mean 81 Respiration from ECG 38 SpO2 94 I&O: 11/07/19 11/08/19 11/09/19 06:59 06:59 06:59 Intake Total 980 1740 Output Total 700 750 Balance 280 990 Result Diagrams: 11/08/19 03:54 11/08/19 03:54 EKG Reviewed by me: Yes (Tele: sinus rhythm ) Phys Exam - Physical Examination Constitutional: NAD HEENT: PERRLA, moist MMs Neck: no JVD Respiratory: no wheezing, no rales, no rhonchi Cardiovascular: RRR, no significant murmur Gastrointestinal: soft, no distention, positive bowel sounds Musculoskeletal: no edema, pulses present Neurological: moves all 4 limbs Psychiatric: normal affect, A&O x 3 Dx/Plan (1) Diastolic heart failure Code(s): I50.30 - UNSPECIFIED DIASTOLIC (CONGESTIVE) HEART FAILURE Status: Acute (2) Hx of deep venous thrombosis Code(s): Z86.718 - PERSONAL HISTORY OF OTHER VENOUS THROMBOSIS AND EMBOLISM Status: Acute (3) Acute respiratory failure with hypoxia Code(s): J96.01 - ACUTE RESPIRATORY FAILURE WITH HYPOXIA Status: Acute (4) HLD (hyperlipidemia) Code(s): E78.5 - HYPERLIPIDEMIA, UNSPECIFIED Status: Acute (5) HTN (hypertension) Code(s): I10 - ESSENTIAL (PRIMARY) HYPERTENSION Status: Acute (6) Pericardial effusion Code(s): I31.3 - PERICARDIAL EFFUSION (NONINFLAMMATORY) Status: Acute (7) Rheumatoid arthritis Code(s): M06.9 - RHEUMATOID ARTHRITIS, UNSPECIFIED Status: Chronic Qualifiers: Rheumatoid arthritis location: hand Rheumatoid factor presence: unspecified presence Laterality: bilateral Qualified Code(s): M06.9 - Rheumatoid arthritis, unspecified (8) Atrial fib/flutter, transient Code(s): UOA6477 - Status: Acute - Plan Plan: Acute Hypoxic Respiratory Failure, likely 2/2 to Pericardial/Pleural Effusions, resolved -s/p Pericardial Window w/ conversion to Sternotomy on 10/30 - 1L bloody fluid drained from pericardium w/ pulsatile bleed noted from right ventricle -workup for etiology at this time still unclear. Negative autoimmune, infectious workup. Pending TB Gold test. -Oxygen requirement primarily only at night at this point and minimal around 1L -Transferred to tele floor w/o issues, sinus rhythm on tele overnight w/o events -Will continue to coordinate w/ CVSurg, Cards, and Pulm - recs appreciated - Pt is weak - discussed inpt therapy. Will discuss with CM. Pt is concerned she will be exposed to COVID. She lives in [place]. A-Fib vs. A-Flutter, resolved -Amiodarone 400 mg PO BID -No overnight events reported Hyperglycemia, improving -Likely 2/2 steroid use - no documented Hx of DM -ACHS -Lantus 10u QAM -Moderate SSI HTN -Currently stable HLD -Will continue patient's home medication regimen Rheumatoid Arthritis -Not currently on DMARD -TERRY Panel: Negative -Continue prednisone CHF Diastolic -Statin, ASA. Have not restarted home lasix, metoprolol -TTE: EF (50-55%) w/ Diastolic Dysfunction (1/3) -Strict I/Os Hx of DVTs -CTA ruled out PE -On xarelto Normocytic Anemia - stable, monitor. Hgb 9.1 PCP: [facility] ([place], [place]) Code: Full Code Diet: heart healthy - Advancing as Tolerated DVT PPx: xarelto GI PPx: Famotidine Addendum - Attending - Attending Attestation Date/Time: 11/08/19 6309 I personally evaluated the patient and discussed the management with Dr. Deleon. I agree with the History, Examination, Assessment and Plan documented above with any addition or exceptions noted below. Post acute screen today. restart beta ismael. likely d/c in next 2-3 days.
[2019-11-08] MEDS: Famotidine 20 MG TAB PO SCH ×2 (08:34→20:21)
[2019-11-08] MEDS: Amiodarone 200 MG TAB PO SCH ×2 (08:34→20:22)
[2019-11-08] MEDS: Aspirin Chewable 81 MG TAB PO SCH (08:35)
[2019-11-08] MEDS: Atorvastatin Calcium 40 MG TAB PO SCH (08:35)
[2019-11-08] MEDS: Fentanyl 100 MCG/2 ML VIAL SLOW IVP PRN (08:35)
[2019-11-08] MEDS: predniSONE 20 MG TAB PO SCH (08:35)
[2019-11-08] MEDS: Folic Acid 1 MG TAB PO SCH (08:35)
[2019-11-08] MEDS ORDERED: Potassium Chloride 20 MEQ TAB PO SCH (09:30)
[2019-11-08] MEDS ORDERED: Acetaminophen 500 MG TAB PO SCH (09:30)
--- NOTE | 2019-11-08 10:42 | PRG ---
DATE OF SERVICE: 11/08/2019 SUBJECTIVE: The patient is doing reasonably well. She has complaints of pain along her hip on the left. OBJECTIVE: VITAL SIGNS: Temperature 97.6, pulse 83, respirations 18, O2 saturations 94% on room air, blood pressure 123/66. HEENT: Unremarkable. NECK: No adenopathy or JVD. CHEST: Clear except the left base where she has slightly diminished breath sounds. CARDIAC: S1 and S2. Regular. ABDOMEN: Soft. EXTREMITIES: No edema. LABORATORY DATA: White blood cell count 17, hematocrit 28, and platelet count 510. Sodium 137, potassium 3.4, chloride 106, CO2 of 21, BUN 21, creatinine 0.7, and glucose 97. ASSESSMENT: 1. Status post spontaneous right ventricular rupture. 2. Pleural effusion. 3. Rheumatoid arthritis. PLAN: Continuing steroids, anticoagulation. Hopefully home soon. Job ID: [id number]
--- NOTE | 2019-11-08 10:48 | RAD ---
PORTABLE CHEST 1 VIEW: Date: 11/08/2019 Time: 1022 hours HISTORY: Pneumonia. COMPARISON: Previous day. FINDINGS/IMPRESSION: Changes of median sternotomy are again seen. The heart is enlarged. Bilateral pleural effusions are n oted with adjacent consolidation/atelectatic changes. No pneumothoraces are identified. POS: [facility]
[2019-11-08] MEDS ORDERED: Insulin Glargine 5 UNITS in Pre-Filled Syringe 1 EACH SC SCH (12:30)
[2019-11-08] MEDS: Insulin Glargine 10 UNITS in Pre-Filled Syringe 1 EACH SC SCH (13:13)
[2019-11-08] MEDS: Acetaminophen 500 MG TAB PO SCH ×2 (15:57→20:22)
[2019-11-08] MEDS ORDERED: HYDROcodone/Acetaminophen 5/325 mg Tablet PO PRN (16:00)
[2019-11-08] MEDS: HumaLOG 300 UNITS/3 ML VIAL SC PRN (17:41)
[2019-11-08] MEDS: Rivaroxaban 10 MG TAB PO SCH (18:35)
[2019-11-09 04:39] LABS: #Eosinphils 0.1 thou/uL (0.0-0.7); #Lymphocytes 2.3 thou/uL (1.20-3.40); #Neutrophils 10.2 thou/uL (1.40-6.50); %Basophils 0.2 % (0.0-1.0); %Lymphocytes 17.1 % (21.0-51.0); %Monocytes 7.3 % (0.0-10.0); %Neutrophils 74.5 % (42.0-75.0); Hemoglobin 8.4 g/dL (12.0-16.0); Mean Corpuscular HGB CONC 31.8 g/dL (32.0-36.0); Mean Corpuscular Hemoglobin 28.4 pg (27.0-31.0); Mean Corpuscular Volume 89.2 fL (78.0-98.0); Mean Platelet Volume 8.3 fL (7.4-10.4); Platelet Count 509 thou/uL (130-400); RBC Distribution Width 18.4 % (11.5-14.5); Red Blood Cell (RBC) Count 2.94 mill/uL (4.20-5.40); White Blood Cell (WBC) Count 13.7 thou/uL (4.8-10.8)
[2019-11-09 05:01] LABS: Anion Gap 12 mmol/L (10-20); BUN (Urea Nitrogen) 20 mg/dL (9.8-20.1); Calc. Creatinine Clearance 79 mL/min (70-130); Calcium 7.9 mg/dL (7.8-10.44); Carbon Dioxide 23 mmol/L (23-31); Chloride 108 mmol/L (98-107); Estimated GFR-MDRD 76; Glucose 74 mg/dL (80-115); Potassium 3.9 mmol/L (3.5-5.1); Sodium 139 mmol/L (136-145)
[2019-11-09] MEDS: Acetaminophen 500 MG TAB PO SCH (05:15)
--- NOTE | 2019-11-09 06:50 | PDOC.FM ---
- Subjective Subjective: Pt unchanged today. She worked better with PT/OT yesterday. She does not want to go to rehab. She prefers going home w/ PT/OT. - Objective Vital Signs & Weight: Vital Signs (12 hours) Temp Pulse Resp BP BP Pulse Ox 11/09/19 03:33 97.4 F L 72 18 114/55 L 97 11/08/19 20:00 98 11/08/19 19:45 97.8 F 78 20 104/56 L 97 Weight Admit Weight 71.668 kg Weight 65.946 kg Most Recent Monitor Data Heart Rate from ECG 73 NIBP 106/69 NIBP BP-Mean 81 Respiration from ECG 38 SpO2 94 I&O: 11/07/19 11/08/19 11/09/19 06:59 06:59 06:59 Intake Total 980 1740 720 Output Total 700 750 550 Balance 280 990 170 Result Diagrams: 11/09/19 03:57 11/09/19 03:57 Phys Exam - Physical Examination Constitutional: NAD HEENT: PERRLA, moist MMs Respiratory: no wheezing, clear to auscultation bilateral Cardiovascular: RRR, no significant murmur Gastrointestinal: soft, non-tender Musculoskeletal: no edema, pulses present Neurological: non-focal, normal sensation Dx/Plan (1) Diastolic heart failure Code(s): I50.30 - UNSPECIFIED DIASTOLIC (CONGESTIVE) HEART FAILURE Status: Acute (2) Hx of deep venous thrombosis Code(s): Z86.718 - PERSONAL HISTORY OF OTHER VENOUS THROMBOSIS AND EMBOLISM Status: Acute (3) Acute respiratory failure with hypoxia Code(s): J96.01 - ACUTE RESPIRATORY FAILURE WITH HYPOXIA Status: Acute (4) HLD (hyperlipidemia) Code(s): E78.5 - HYPERLIPIDEMIA, UNSPECIFIED Status: Acute (5) HTN (hypertension) Code(s): I10 - ESSENTIAL (PRIMARY) HYPERTENSION Status: Acute (6) Pericardial effusion Code(s): I31.3 - PERICARDIAL EFFUSION (NONINFLAMMATORY) Status: Acute (7) Rheumatoid arthritis Code(s): M06.9 - RHEUMATOID ARTHRITIS, UNSPECIFIED Status: Chronic Qualifiers: Rheumatoid arthritis location: hand Rheumatoid factor presence: unspecified presence Laterality: bilateral Qualified Code(s): M06.9 - Rheumatoid arthritis, unspecified (8) Atrial fib/flutter, transient Code(s): MUB4255 - Status: Acute - Plan Plan: Pt is a 64 yo female here for R ventricular wall rupture s/p pericardial window : Dispo: will discuss case with CV, cardiology and determine if she fine for discharge. will provide pt with resources for HH PT/OT as pt does not want inpt rehab. She has a friend at home who can assist in care. Although our recommendation would be inpt rehab. Acute Hypoxic Respiratory Failure, likely 2/2 to Pericardial/Pleural Effusions, resolved -s/p Pericardial Window w/ conversion to Sternotomy on 10/30 - 1L bloody fluid drained from pericardium w/ pulsatile bleed noted from right ventricle -workup for etiology at this time still unclear. Negative autoimmune, infectious workup. Pending TB Gold test. -Oxygen requirement primarily only at night at this point and minimal around 1L -Transferred to tele floor w/o issues, sinus rhythm on tele overnight w/o events -Will continue to coordinate w/ CVSurg, Cards, and Pulm - recs appreciated A-Fib vs. A-Flutter, resolved -Amiodarone 400 mg PO BID -No overnight events reported Hyperglycemia, improving -Likely 2/2 steroid use - no documented Hx of DM -ACHS -Decrease lantus to 5 U daily at this time. -Moderate SSI HTN -Currently stable HLD -Will continue patient's home medication regimen Rheumatoid Arthritis -Not currently on DMARD -TERRY Panel: Negative -Continue prednisone CHF Diastolic -Statin, ASA. Restarted metoprolol at 12.5 mg BID. Continue to hold lasix, potassium at this time. -TTE: EF (50-55%) w/ Diastolic Dysfunction (1/3) -Strict I/Os Hx of DVTs -CTA ruled out PE -On xarelto Normocytic Anemia - stable, monitor. Hgb 9.1 - 2/2 blood loss - she was not anemic on presentation to hospital. Start ferrous sulfate. PCP: [facility] ([place], [place]) Code: Full Code Diet: heart healthy DVT PPx: xarelto GI PPx: Famotidine Addendum - Attending - Attending Attestation Date/Time: 11/09/19 9852 I personally evaluated the patient and discussed the management with Dr. Deleon. I agree with the History, Examination, Assessment and Plan documented above with any addition or exceptions noted below. d/c after cleared by CV surgery. HH arranged by JANET.
[2019-11-09] MEDS ORDERED: Insulin Glargine 5 UNITS in Pre-Filled Syringe 1 EACH SC SCH (09:00)
[2019-11-09] MEDS ORDERED: Metoprolol Tartrate 25 MG TAB PO SCH (09:00)
[2019-11-09] MEDS: Famotidine 20 MG TAB PO SCH (09:12)
[2019-11-09] MEDS: Ferrous Sulfate 325 MG TAB PO SCH ×2 (09:12→18:28)
[2019-11-09] MEDS: Amiodarone 200 MG TAB PO SCH ×2 (09:12→19:22)
[2019-11-09] MEDS: Aspirin Chewable 81 MG TAB PO SCH (09:13)
[2019-11-09] MEDS: Folic Acid 1 MG TAB PO SCH (09:13)
[2019-11-09] MEDS: predniSONE 20 MG TAB PO SCH (09:14)
[2019-11-09] MEDS: Atorvastatin Calcium 40 MG TAB PO SCH (09:25)
[2019-11-09] MEDS: Acetaminophen 325 MG TAB PO SCH ×2 (12:47→19:15)
[2019-11-09 13:39] VITALS: BMI 26.6
--- NOTE | 2019-11-09 17:15 | PDOC.BPN ---
- Brief Progress Note Transition of Care Note: 10/24 - 11/04 Patient is a 64 y/o female with PMH of DVTs requiring chronic anticoagulation, HTN, RA currently not taking DMARDs, who presented to the ED on 10/24 with a CC of SOB. Patient states that SOB has been present over the past 2 weeks but has acutely worsened over the past 2 days. Patient reports she was treated for a sinus infection with Amoxicillin 2 weeks prior, and subsequently went back to her doctor on 10/18 for continued SOB and was subsequently diagnosed with Bronchitis and was started on Albuterol and Azithromycin. Patient states that her SOB was worse with exertion but somewhat better with Albuterol, and she denied chest pain, fevers, chills, productive cough and palpitations but reported occasional wheezing. Patient also states that she was diagnosed with CHF 1 month prior to presentation and was started on Furosemide, but to date has not had an echo. In the ED, patient was found to have a BNP of 108 with indeterminate Trops and a Lactic Acid of 1.4. EKG showed NSR with nonspecific changes. CXR showed enlarged heart, with suspicion of pneumonia vs atelectasis vs aspiration. CTA ruled out PE, but showed bilateral pleural effusions and marked pericardial fluid. Patient was given Famotidine, ASA 325, Levaquin, Ceftriaxone and 1L NS and subsequently transferred to the Telemetry Floor. Upon transfer to the Telemetry Floor, the patient appeared well clinically, but continued to complain of SOB and ultimately began to require supplemental oxygen via nasal cannula. An echocardiogram was performed, which revealed an EF of 50-55% and Grade I/III diastolic dysfunction, with a pericardial effusion that was found to be mild in nature and without evidence of tamponade. Per Cardiology recommendations, the patient was given Furosemide via IV with close monitoring of the patients blood pressure and respiratory status. On the evening of 10/26, the patient experienced an episode of tachycardia, with a heart rate in the 200s, and was subsequently administered Adenosine twice, with subsequent reduction in heart rate to the 180s. An EKG was performed which demonstrated A-Fib, and the patient was subsequently started on a Diltiazem gtt following an appropriate loading dose. Per Cardiology recommendations, Amiodarone was also added to the patients medication regimen. Although the patients heart rate and blood pressure remained well controlled, with rates < 110 BPM and blood pressures measuring in the 100s/60s mmHg, the patients tachypnea and work of breathing continued to increase, with a respiratory rate in the 30s that required an increasing amount of O2 via nasal cannula from 2L to 4L. On 09/27, the patient was transferred to the [facility] and placed on BiPap. Later that evening, the patient documented a fever of 101.7 and was started Vancomycin and Zosyn for presumed bacterial infection. Blood cultures and urine cultures were drawn, but have shown no growth to date. On 10/28, a thoracentesis was performed that resulted in drainage of approximately 0.4L fluid from the right posterior hemithorax. Subsequent analysis of the fluid revealed it to be exudative in nature, although Gram stains were negative and cultures have shown no growth to date. Following the patients thoracentesis, her respiratory status continued to decline, and she was subsequently intubated and transferred to the ICU. Repeat CXR demonstrated appropriate placement of endotracheal tube and CT ABD/Pelvis was essentially negative. Patients condition stabilized but remained guarded On 10/30, CVSurgery was consulted and elected to perform a pericardial window based on evidence of early tamponade. Pericardial window was performed on 10/30, and immediately upon entering the pericardial space approximately 1L of blood was drained, with a continued pulsatile pumping of blood noted with the source not readily identified. A sternotomy was then performed, and a small rupture of the right ventricular free wall was noted and subsequently closed surgically. Tissue sample and blood cultures were obtained for further analysis, and have all been unremarkable to date. Fungal studies were also taken, the results of which are still pending. The patient tolerated the procedure well and was transferred back to the ICU in a critical but stable condition. Over the span of the next several days, the patients condition gradually improved, and she was subsequently weaned off of sedation and ventilator support, eventually being transitioned to 0.5L O2 via nasal cannula, with vital signs remaining stable. The patient was able to begin tolerating PO intake and was evaluated by PT/OT for the initiation of physical rehabilitation, and was subsequently transferred to the [facility] in a stable condition. Her steroid and antibiotic regimen were de-escalated to daily administration of Methylprednisolone 20 mg IV and Cefdinir 300 mg PO BID. At the time of this report, multiple etiologies have been investigated as to the origin of the patients right ventricular free wall rupture - the likely causative factor in the patients pericardial and pleural effusions - to include bacterial, viral, fungal, and autoimmune causes, with no definitive source identified.
[2019-11-09] MEDS: Rivaroxaban 10 MG TAB PO SCH (18:28)
[2019-11-09] MEDS: HumaLOG 300 UNITS/3 ML VIAL SC PRN (18:44)
[2019-11-09 19:11] VITALS: BP 123/63; TEMP 97.9
--- NOTE | 2019-11-09 20:36 | PRG ---
DATE OF SERVICE: 11/05/2019 SUBJECTIVE: Ms. Berg is looking better everyday. She gets stronger, she can kick her legs off the bed. She is standing with some assistance. OBJECTIVE: VITAL SIGNS: She is afebrile. Respiratory rates in the teens, heart rates in the 60s, oximetry is 98 on room air. CHEST: Her sternum is without erythema or drainage. LUNGS: Clear. HEART: Regular rhythm. ABDOMEN: Soft. IMPRESSION: 1. Status post perforated right ventricle of unclear etiology. I would wonder if she would not benefit from a cardiac catheterization at some point. 2. Status post removal of exudative right pleural effusion. 3. Weakness and deconditioning. 4. Rheumatoid arthritis, on no immunosuppressive drugs. PLAN: Continue supportive care. Job ID: [id number] [facility]
[2019-11-10 05:13] LABS: QuantiFERON-TB Gold Plus Indeterminate (Negative)
--- NOTE | 2019-11-10 08:23 | PRG ---
DATE OF SERVICE: 11/07/2019 TRANSFER OF CARE SUMMARY The patient is a 64-year-old female with past medical history significant for DVTs requiring chronic anticoagulation, hypertension, suspected rheumatoid arthritis, although the patient is not on any biologic medication and a new diagnosis of heart failure, although the patient has not had an echo performed to date, who presents to the hospital on 10/25/2019 for a 2-week history of worsening shortness of breath that has gotten acutely worse over the past 2 days. The patient reports that she was treated for a sinus infection with amoxicillin approximately 2 weeks prior to presentation and subsequently returned to her doctor's office 4 days after for repeat evaluation and was diagnosed with bronchitis. The patient states she was started on albuterol and azithromycin at that time. Her shortness of breath has continually worsened, although she stated that prior to presentation, it did tend to improve with albuterol. On initial evaluation, she denied chest pain, palpitations, but did report occasional wheezing. In the emergency department, the patient was found to have a BNP of 108, and indeterminate troponin level. CBC was within normal limits. Lactic acid was 1.4. An EKG was performed that showed nonspecific ST changes. Chest x-ray indicated enlarged heart with initial read suspicious for pneumonia versus atelectasis versus aspiration. CTA was performed to rule out pulmonary embolus; however, a marked pericardial effusion was noted. The patient was given aspirin, Levaquin, ceftriaxone, and a liter of normal saline and subsequently transferred to the telemetry floor. An echocardiogram was subsequently performed, which demonstrated a left ventricular size that was normal and ejection fraction of 50% to 55% and grade 1 of 3 diastolic dysfunction. Pericardial effusion was initially reported to be mild with no evidence of tamponade. As such, the patient was subsequently diuresed with furosemide, however, the patient's respiratory status continued to decline and her oxygen demand increased from room air to 2 L via nasal cannula to 3 L to 4 L. As such, she was subsequently transferred to the [facility] for high-flow nasal cannula. The patient was subsequently placed on BiPAP and was subsequently intubated as her work of breathing continued to decline. Thoracentesis was subsequently performed, which revealed 400 mL of bloody pleural fluid that was found to be exudative in nature. Gram stain showed no organisms and subsequent culture of the fluid did not yield any notable colony-forming units. Laboratory workup showed a D-dimer level of 6.98, ferritin of 1145, LDH 424, CRP 17.65, procalcitonin 1.1. Respiratory viral panel was drawn, which was ultimately found to be negative as was an TERRY panel. CV Surgery was subsequently consulted and the decision was made to proceed with a pericardial window. Pericardial window was performed and approximately 1 L of bloody fluid was drained from the pericardial space. However, it was noted that there was a pulsatile leak in the area of the right ventricle and as such, the pericardial window was subsequently transitioned to a sternotomy in which the patient was found to have a defect in the right ventricular free wall, which was subsequently oversewn. Multiple biopsies of the tissue were taken around the site. Cultures of the fluid were also sent for analysis, which ultimately were returned negative as were the biopsies. Following evacuation of the fluid, the patient's condition began to improve and she was subsequently weaned off the ventilator and placed on nasal cannula 2 L and subsequently weaned down to nasal cannula via 1 L and ultimately only requiring oxygen at night. Of note during hospitalization, the patient had one episode of atrial fibrillation versus atrial flutter in which she was tachycardia with a rate in the 200s. She received 2 doses of adenosine, which slowed her heart rate to approximately 180 beats per minute and was subsequently started on a Cardizem drip, this was weaned prior to the aforementioned pericardial window. Additionally, the patient had 2 documented fevers overnight on 10/28. Blood cultures and urine cultures were taken at that time, to date which have not grown any colony-forming units. The cause of these fevers is unknown, but thought to be related to atelectasis. Overall, the patient's condition is critical, yet stable and improving. Etiology for the ventricular free wall defect is as of yet unknown. Multiple lab studies are still pending to include fungal studies as well as a repeat QuantiFERON Gold study, which was initially indeterminate. The patient has been subsequently weaned off a broad-spectrum antibiotic regimen and tapered down to cefdinir 300 mg p.o. b.i.d. with the intent to eventually discontinue as an identifiable infectious etiology for the patient's presentation appears unlikely at this point. The patient had also been started on a steroid regimen of methylprednisolone 20 mg IVP q.6 hours daily while in the IMCU and ICU. This has also been weaned down to approximately 20 mg IVP daily. This patient has subsequently developed hyperglycemia in the absence of a known diagnosis of type 2 diabetes, most likely related to this steroid regimen and as such has been started on a long-acting insulin dose of Lantus 10 units SC daily as well as a mild sliding scale. Job ID: [id number]
[2019-11-10] MEDS ORDERED: Amiodarone 200 MG TAB PO SCH (09:00)
[2019-11-24] MEDS ORDERED: Amiodarone 200 MG TAB PO SCH (09:00)
== END 2019-11-09 20:22 | disposition home or self-care (01) | DRG 270 ==
LOC: ERS 13:00 → 2SE 15:53 → OBSVTOIN 10-26 15:15 → 2NO 10-26 18:06 → IMCU/EMU 10-28 18:12 → CCU 10-29 17:01 → IMCU/EMU 11-04 15:06 → 2NO 11-06 17:36
PROVIDERS: ADMIT Family Medicine; ATTEND Family Medicine
PROC: 5A2204Z Restoration of Cardiac Rhythm, Single (ICD-10-PCS; 2019-10-28)
PROC: 0W993ZZ Drainage of Right Pleural Cavity, Percutaneous Approach (ICD-10-PCS; 2019-10-29)
PROC: 02BN0ZX Excision of Pericardium, Open Approach, Diagnostic (ICD-10-PCS; principal; 2019-10-31)
PROC: 0W9D0ZZ Drainage of Pericardial Cavity, Open Approach (ICD-10-PCS; 2019-10-31)
DX: I31.3 Pericardial effusion (noninflammatory) (principal); J96.01 Acute respiratory failure with hypoxia; I24.8 Other forms of acute ischemic heart disease; J90 Pleural effusion, not elsewhere classified; N39.0 Urinary tract infection, site not specified; E87.3 Alkalosis; I50.32 Chronic diastolic (congestive) heart failure; Z20.828 Contact with and (suspected) exposure to other viral communicable diseases; I11.0 Hypertensive heart disease with heart failure; M06.9 Rheumatoid arthritis, unspecified; Z96.652 Presence of left artificial knee joint; E78.5 Hyperlipidemia, unspecified; E66.9 Obesity, unspecified; I31.9 Disease of pericardium, unspecified; D64.9 Anemia, unspecified; E87.6 Hypokalemia; R73.9 Hyperglycemia, unspecified; J30.2 Other seasonal allergic rhinitis; T38.0X5A Adverse effect of glucocorticoids and synthetic analogues, initial encounter; Z86.718 Personal history of other venous thrombosis and embolism; Z79.01 Long term (current) use of anticoagulants; Z87.891 Personal history of nicotine dependence; Z88.8 Allergy status to other drugs, medicaments and biological substances; Z88.6 Allergy status to analgesic agent; Z91.041 Radiographic dye allergy status; Z68.26 Body mass index [BMI] 26.0-26.9, adult
CPT/HCPCS: 36415; 36416; 71045; 71046; 71275; 74176; 80048; 80053; 80202; 81001; 82150; 82553; 82728; 82805; 82945; 83605; 83615; 83690; 83735; 83880; 83986; 84145; 84157; 84443; 84484; 85025; 85027; 85060; 85379; 86038; 86140; 86225; 86480; 86612; 86635; 86698; 87040; 87070; 87086; 87102; 87116; 87149; 87205; 87206; 87385; 87633; 88112; 88305; 89051; 93005; 93010; 93306; 93798; 94002; 94003; 94150; 94640; 94660; 94760; 96365; 96366; 96375; J0153; J0171; J0282; J0696; J1160; J1200; J1815; J1940; J1956; J2001; J2060; J2250; J2270; J2370; J2543; J2704; J2920; J2930; J3010; J3370; J3490; J7070; J7512; J7611; P9047; Q9967; S0020; S0028